=== PATIENT | female | born 1960 | race Caucasian/White ===

== ENCOUNTER 2019-03-17 09:31 | Outpatient (REF) | payer BC, SELFPAY ==
[2019-03-17 13:11] LABS: ALT 30 U/L (14-59); AST 19 U/L (15-37); Albumin 3.7 g/dL (3.4-5.0); Alkaline Phosphatase 48 U/L (46-116); Anion Gap 8.7 mmol/L (3-11); BUN 11 mg/dL (7-18); Bilirubin, Total 0.2 mg/dL (0.2-1.0); CO2 29.3 mmol/L (21.0-32.0); CREATININE 0.78 mg/dL (0.55-1.02); Calcium 9.8 mg/dL (8.5-10.1); Calculated LDL 116 mg/dL; Chloride 107 mmol/L (98-107); Cholesterol 182 mg/dL (50-200); Glucose 89 mg/dL (70-100); HDL Cholesterol 42 mg/dL (40-60); Potassium 3.8 mmol/L (3.5-5.1); Sodium 145 mmol/L (136-145); TSH (W/Ref FT4) 3.89 uIU/mL (0.36-3.74); Total Protein 6.7 g/dL (6.4-8.2); Triglyceride 124 mg/dL (30-150)
== END 2019-03-17 09:51 ==
LOC: NCHCN 09:31
PROVIDERS: PCP Family Medicine; Visit Provider Family Medicine
DX: Z00.00 Encounter for general adult medical examination without abnormal findings (principal); E03.9 Hypothyroidism, unspecified; D50.9 Iron deficiency anemia, unspecified
CPT/HCPCS: 80053; 80061; 84439; 84443

== ENCOUNTER 2019-03-25 15:26 | Emergency (ER) | payer BC, SELFPAY ==
[2019-03-25 15:28] VITALS: BP 149/70; PULSE 83; RESP 18; TEMP 36.6; O2SAT 98
--- NOTE | 2019-03-25 16:36 | ED.GENADUL_ITS ---
Discharge Plan Disposition Patient Disposition: HOME Condition: Stable Discharge Details Chief Complaint: Abd Prob Clinical Impression: Constipation, Acute UTI Primary Care Provider: Berta Winchester ED Provider: Waldemar Jernigan Home Meds and New Rx's Prescriptions: New polyethylene glycol 3350 [Miralax] 17 gram/dose powder 17 gm PO TID Qty: 510 RF: 1 Continued levothyroxine 50 MCG tablet 50 mcg PO DAILY RF: 0 albuterol sulfate 8.5 GM HFA aerosol inhaler 2 puff Inhalation Q6H PRN RF: 0 clonazepam 2 MG tablet,disintegrating 1 mg PO BID RF: 0 sertraline 100 MG tablet 200 mg PO DAILY RF: 0 Discharge Instructions Instructions: Constipation (ED), Urinary Tract Infection in Women (ED) Additional Instructions: Stay well-hydrated and take medication as prescribed. Feel free to return to the emergency department for any new or significant worsening of symptoms. If you are not having signs of improvement of your urinary symptoms or constipation over the next week please follow-up with your primary care provider for reassessment. Referrals: Berta Winchester [Primary Care Provider] - 1 week (If not improving over the next week please follow-up with your primary care provider for reassessment) Discharge Data Discharge Date/Time-TO BE ENTERED AT DEPARTURE: 03/25/19 20:55 Medical Decision Making Patient presenting to the emergency department for chief complaint of constipation. Patient states long ongoing history with slow and difficult bowel movements but she reports not having a bowel movement for approximately 1 week. Patient states mild nausea but denies any vomiting, denies fever chills, does state some slight urinary discomfort with burning urination and bladder pressure. Physical exam shows mild left-sided abdominal tenderness with slight guarding otherwise there is normal active bowel sounds, no CVA tenderness, and otherwise unremarkable exam. Patient with further discussion does state 20 pound weight loss over the last couple months. Given this I do feel that labs and CT imaging is warranted. Pending results patient given Zofran and liter of fluids. Review of labs show unremarkable CBC and CMP, negative lipase, urinalysis with small amount of leukocyte Estrace and 10-20 WBCs with urine culture reflex. Given the patient is symptomatic plan to treat patient with Macrobid. Review of CT imaging shows findings consistent with constipation otherwise no acute abnormalities as noted on exam. Patient reassessed and remained stable with no new or worsening symptoms. Patient placed upon MiraLAX and instructed on use of mag citrate that was provided for her to use at home. At this time we deferred any rectal examination. Patient to continue on Macrobid for 5 days and to othe rwise follow-up with primary care provider for reassessment if not improving or return for new or worsening symptoms. After discussion of diagnosis and plan of care patient has no further needs, questions, or concerns and states clear understanding to return to the emergency department for any worsening symptoms. HPI General Mode of arrival: ambulatory . Date/Time Provider Initiated Documentation: 03/25/19 15:40 . Limitations to Documentation: no limitations . Information obtained by: patient . History of Present Illness 58 year old F presents to the emergency department with the chief complaint of Constipation, described as moderate, with intensity rated at 6. Quality is described as dull, and is localized to the abdomen. Patient started experiencing this month(s) (2) and it has been constant and colicky. No relieving factors improve symptom(s), No exacerbating factors reported . Related Data Home Medications Medication Instructions Recorded Confirmed albuterol sulfate 2 puff INHALATION Q6H PRN inhaler 01/04/15 03/25/19 clonazepam 1 mg PO BID tab-cap 01/04/15 03/25/19 levothyroxine 50 mcg PO DAILY tab-cap 01/04/15 03/25/19 sertraline 200 mg PO DAILY tab-cap 04/05/17 03/25/19 polyethylene glycol 3350 [Miralax] 17 gm PO TID #510 gm 03/25/19 Previous Rx's Medication Instructions Recorded polyethylene glycol 3350 [Miralax] 17 gm PO TID #510 gm 03/25/19 Allergies Allergy/AdvReac Type Severity Reaction Status Date / Time gluten Allergy Intermediate Unverified 03/25/19 15:31 erythromycin base AdvReac Intermediate Nausea Unverified 03/25/19 15:31 iron AdvReac Intermediate Nausea Unverified 03/25/19 15:31 Penicillins AdvReac Intermediate flu Unverified 03/25/19 15:31 symptoms Sulfa (Sulfonamide AdvReac Intermediate chest Unverified 03/25/19 15:31 Antibiotics) feels on fire General Stated Complaint: Abd Prob NELLA: 3 Review of Systems Constitutional Constitutional: Denies chills, Denies fever(s) and Reports poor appetite Cardiovascular Cardiovascular: Denies chest pain and Denies dyspnea Respiratory Respiratory: Denies cough and Denies dyspnea Gastrointestinal Gastrointestinal: Reports as per HPI, Reports abdominal pain, Denies melena, Reports bloating, Denies change in bowel habits, Reports constipation, Reports cramping, Denies diarrhea, Reports nausea and Denies vomiting Genitourinary Genitourinary: Reports dysuria and Denies urinary incontinence Integumentary/Breasts Skin/Breast: Denies rash [facility] Surgical History Colonoscopy - MAC (04/18/17) Tubal Ligation, Family History Mother Breast cancer COPD (chronic obstructive pulmonary disease) Father Valvular heart disease at 77 Bladder cancer Social History Smoking/Tobacco Use Status: Never Drug use: Never Do you feel safe at home: Yes Do you feel safe in your relationship?: Yes Exam Const General: cooperative Orientation: alert, awake and oriented x3 Resp Effort & Inspection: normal respiratory effort and able to speak in complete sentences Auscultation: clear to auscultation bilaterally Cardio Rate: regular rate Rhythm: regular rhythm Heart Sounds: S1 normal and S2 normal GI Palpation: soft, no hepatosplenomegaly, not firm, guarding in the LLQ and in the LUQ, no masses, no pulsatile masses, not rigid, no splenomegaly and tender in the LLQ and in the LUQ; not at McBurney's point and Vela's sign negative Auscultation: hypoactive bowel sounds Back/Spine/Pelvis Back: no CVA tenderness Neuro General: alert, awake, oriented x3, gait normal and moves all extremities Course Vital Signs Vital signs: Vital Signs Temperature 36.6 C 03/25/19 15:28 Pulse 83 03/25/19 15:28 Respiratory Rate 18 03/25/19 15:28 Blood Pressure 149/70 H 03/25/19 15:28 Pulse Oximetry 98 03/25/19 15:28 Temperature 36.6 C 03/25/19 15:28 Temperature Source Skin 03/25/19 15:28 Pulse 83 03/25/19 15:28 Respiratory Rate 18 03/25/19 15:28 Respiratory Effort 03/25/19 15:32 Blood Pressure 149/70 H 03/25/19 15:28 Blood Pressure Position Sitting 03/25/19 15:28 Pulse Oximetry 98 03/25/19 15:28 Oxygen Delivery Method Room Air 03/25/19 15:28 Oxygen Flow Rate 0 03/25/19 15:28 Pain Level 6 03/25/19 16:24
--- NOTE | 2019-03-25 16:36 | DI.CT_ITS ---
EXAM: CT ABDOMEN PELVIS W CLINICAL HISTORY: Abdominal pain, constipation. TECHNIQUE: The examination was carried out according to the usual protocol with intravenous administ ration of 77 cc of Omnipaque 350. COMPARISON: ABD/PELVIS WO W CONTRAST from 08/19/2009 FINDINGS: There are small regions of bibasilar atelectasis. Gallbladder is intact. There are no gallstones or evidence of ductal dilatation. Spleen, pancreas, l iver are normal. Adrenals are normal. Note is made of a 5 mm nodule in the right kidney. No renal ca lculus is seen. There is no evidence of hydronephrosis. A large quantity of fecal material and scat tered gas are identified in the colon, the findings consistent with constipation. There is nothing t o suggest an acute appendix. No evidence of free air or free fluid in the intraperitoneal space. Th ere is no evidence of lymphadenopathy. There is no evidence of an aortic aneurysm. Reproductive org ans appear intact. The bladder is unremarkable. No acute bony abnormality is defined. IMPRESSION: No acute abnormality. There are findings consistent with constipation.
[2019-03-25] MEDS: Ondansetron 4 MG/2 ML VIAL IVP (16:57)
[2019-03-25] MEDS: Normal Saline 1,000 ML 1000 ML IV (17:00)
[2019-03-25 17:20] LABS: Bilirubin Negative (Negative); Blood Negative (Negative); Clarity Clear (Clear); Glucose Negative (Negative); Ketones Negative (Negative); Leukocyte Esterase Small (Negative); Nitrite Negative (Negative); Urobilinogen 0.2 EU/dL (Up TO 0.2); pH 6.5 (5-8)
[2019-03-25 17:25] LABS: Abs Immature Grans 0.01 k/cumm (0.0-0.09); Absolute Basophil Count 0.03 k/cumm (0.0-0.2); Absolute Eosinophil Count 0.14 k/cumm (0.0-0.7); Absolute Lymphocyte Count 2.09 k/cumm (1.2-3.4); Absolute Neutrophil Count 4.04 k/cumm (1.2-6.7); Basophils % 0.4; HCT 40.4 % (36.0-46.0); HGB 13.1 g/dL (12.0-15.5); Immature Grans % 0.1; Lymphocytes % 30.2; Mean Corp. HGB Concentration 32.4 g/dL (32.0-36.0); Mean Corpuscular Hemoglobin 28.5 pg (27.0-33.0); Mean Platelet Volume 9.1 fL (8.0-11.0); Monocytes % 8.7; Neutrophils % 58.6; Platelet Count 289 x1000/uL (130-400); RBC 4.59 m/cumm (4.00-5.20); RBC Distribution Width 13.5 % (11.7-14.6); White Blood Cell Count 6.91 k/cumm (4.4-10.8)
[2019-03-25 17:32] LABS: Bacteria Negative HPF (Negative); C & S Indicated? Yes; Casts 3-5 Fine Granular LPF (Negative); Crystals Moderate Amorphous HPF (Negative); Epithelial Cells Few HPF (Negative); Mucus Moderate (Negative)
[2019-03-25 17:34] LABS: ALT 26 U/L (14-59); AST 20 U/L (15-37); Albumin 3.9 g/dL (3.4-5.0); Alkaline Phosphatase 51 U/L (46-116); Anion Gap 9.1 mmol/L (3-11); BUN 16 mg/dL (7-18); Bilirubin, Total 0.3 mg/dL (0.2-1.0); CO2 26.9 mmol/L (21.0-32.0); Chloride 106 mmol/L (98-107); Glucose 87 mg/dL (70-100); Lipase 244 U/L (73-393); Magnesium 2.1 mg/dL (1.8-2.4); Potassium 3.6 mmol/L (3.5-5.1); Sodium 142 mmol/L (136-145); Total Protein 7.5 g/dL (6.4-8.2)
[2019-03-25 18:51] VITALS: BP 128/72; PULSE 61; RESP 16; O2SAT 98
[2019-03-25] MEDS: Omnipaque 350 MG/ML 100 ML BTL IJ (19:01)
--- NOTE | 2019-03-25 19:31 | DI.VRAD_ITS ---
PROCEDURE INFORMATION: Exam: CT Abdomen And Pelvis With Contrast Exam date and time: 03/25/2019 6:58 PM Clinical history: 58 years old, female; Other: Abdominal pain, constipation; Additional info: Abdominal pain, constipation x2 wks TECHNIQUE: Imaging protocol: Computed tomography of the abdomen and pelvis with intravenous contrast. Radiation optimization: All CT scans at this facility use at least one of these dose optimization techniques: automated exposure control; mA and/or kV adjustment per patient size (includes targeted exams where dose is matched to clinical indication); or iterative reconstruction. Contrast material: OMNIPAQUE 350; Contrast volume: 77 ml; Contrast route: IV; COMPARISON: US PELVIS TRANSVAG 04/24/2017 5:38 PM FINDINGS: Lungs: Bibasilar atelectasis Liver: Normal. No mass. Gallbladder and bile ducts: Normal. No calcified stones. No ductal dilation. Pancreas: Normal. No ductal dilation. Spleen: Normal. No splenomegaly. Adrenals: Normal. No mass. Kidneys and ureters: 5 mm nodule right kidney 37 Hounsfield units No renal calculus. No ureteral calculus Stomach and bowel: Findings consistent with constipation Appendix: No evidence of appendicitis. Intraperitoneal space: Unremarkable. No free air. No significant fluid collection. Vasculature: Unremarkable. No abdominal aortic aneurysm. Lymph nodes: Unremarkable. No enlarged lymph nodes. Bladder: Unremarkable as visualized. Reproductive: Unremarkable as visualized. Bones/joints: Unremarkable. No acute fracture. Soft tissues: Unremarkable. IMPRESSION: Findings consistent with constipation Dictated and Authenticated by: Janeth Carranza MD. Ordering:DEISY Medeiros MD
[2019-03-25] MEDS: MacroBID 100 MG CAP PO (20:53)
[2019-03-25] MEDS: Magnesium Citrate 300 ML BTL 150 ML PO (20:53)
[2019-03-25 20:56] VITALS: BP 144/79; PULSE 76; RESP 16; TEMP 36.7; O2SAT 98
== END 2019-03-25 20:55 | disposition home or self-care (01) ==
PROVIDERS: Emergency Provider Nurse Practitioner Family; PCP Family Medicine
DX: K59.00 Constipation, unspecified (principal); N39.0 Urinary tract infection, site not specified
CPT/HCPCS: 36415; 80053; 83690; 96361; 96374; 99284; 74177; 81003; 81015; 83735; 85025; 87086; J2405; J3490

== ENCOUNTER 2019-04-08 18:07 | Outpatient (REF) | payer BC, SELFPAY | END 2019-04-08 18:27 | LOC: NCHCN 18:07 | PROVIDERS: PCP Family Medicine; Visit Provider Family Medicine | DX: R30.9 Painful micturition, unspecified (principal) | CPT/HCPCS: 87086 ==

== ENCOUNTER 2019-05-31 15:26 | Emergency (ER) | payer BC, SELFPAY ==
[2019-05-31 15:39] VITALS: BP 121/69; PULSE 90; RESP 16; TEMP 37.1; O2SAT 97
[2019-05-31 15:46] LABS: Bilirubin Negative (Negative); Blood Negative (Negative); Clarity Clear (Clear); Glucose Negative (Negative); Ketones Negative (Negative); Leukocyte Esterase Negative (Negative); Nitrite Negative (Negative); Urobilinogen 0.2 EU/dL (Up TO 0.2); pH 6.5 (5-8)
--- NOTE | 2019-05-31 16:12 | ED.GENADUL_ITS ---
Discharge Plan Disposition Patient Disposition: HOME Condition: Good Discharge Details Chief Complaint: FlankPain Clinical Impression: Back pain, Muscle spasm Primary Care Provider: Berta Winchester ED Provider: Nataliia Mcgregor Home Meds and New Rx's Prescriptions: New diazepam [Valium] 5 mg tablet 5 mg PO TID PRN (Reason: muscle spasm) Qty: 7 RF: 0 Continued clonazepam [Klonopin] 1 mg tablet 1 mg PO BID RF: 0 levothyroxine 50 MCG tablet 50 mcg PO DAILY RF: 0 albuterol sulfate 8.5 GM HFA aerosol inhaler 2 puff Inhalation Q6H PRN RF: 0 sertraline 100 MG tablet 100 mg PO DAILY RF: 0 polyethylene glycol 3350 [Miralax] 17 gram/dose powder 17 gm PO TID Qty: 510 RF: 1 citalopram [Celexa] 20 mg Tablet 20 mg PO DAILY RF: 0 Discharge Instructions Instructions: Back Pain (ED), Lower Back Exercises (ED) Additional Instructions: Encourage hydration. You were given Toradol here, you may take ibuprofen again in 8 hours. You may take 600 mg of ibuprofen 4 times daily as well as 1000 mg of Tylenol 4 times daily. Valium prescribed to help with muscle spasm. This may make you fatigued. Do not drive will take this medication and take only as prescribed. Encouraged gentle stretching and frequent ambulation. Heat may also help with discomfort. May try topical options such as Salonpas or Lidoderm patches. Physical therapy referral is attached. He may also contact massage therapy. If you develop fever/chills, increased pain, weakness, radiating pain or other new/worsening symptoms please seek care urgently once again. Otherwise, please follow-up with primary care next week for reevaluation. Stand Alone Forms: Physical Therapy Referral Referrals: Berta Winchester [Primary Care Provider] - Discharge Data Discharge Date/Time-TO BE ENTERED AT DEPARTURE: 05/31/19 16:40 Medical Decision Making Patient 58-year-old female presents today with chief complaint of lower back pain. She reports began yesterday after [employer] shopping. She does report that she was lifting up more than she typically does and this may have been related to offset the back discomfort. States the pain has further progressed, particularly worsened overnight. States the pain is maximal with bending forward. Feels improved with immobilization. Denies any weakness in her lower extremities. No change in bowel or bladder habits. Denies any numbness or tingling. Pain does not radiate. Denies any GI upset. Patient does have chronic constipation but no change in this. States she did take ibuprofen this morning but is not take anything since then. Has had kidney stones historically but states that this pain is slightly different and is equal bilaterally. On exam, patient appears comfortable. Vital signs within normal limits. Abdomen is benign. Lung sounds are clear. No CVA tenderness. Pain is much more inferior to this along the lumbar aspect of the spine. No midline tenderness, no paraspinal tenderness. Pain is maximal with forward flexion. With this, spasm is noted more so on the left than the right although patient feels that pain is equal bilaterally. Negative straight leg raise. Rotational movements are intact. No sensory deficit, no saddle paresthesias. Strength equal bilaterally lower extremities, normal reflexes. Urinalysis without significant abnormality. I discussed with the patient that her history of heavy lifting yesterday followed by a gradual onset of lower back pain is more suggestive of muscle spasm. Spasm was palpable on exam. I discussed treatment options with the patient. She prefers to be discharged home and take muscle relaxer at that time. She is agreeable to Toradol, Tylenol and lidocaine patch but would like to be able to drive herself home. She is given strict return precautions. Encourage gentle stretching frequent ambulation. She has seen massage therapy in the past which is worked well for her. Referral to physical therapy will also be given. Patient requesting discharge at this time. Advise follow-up with primary care next week for reevaluation. All her questions and concerns were addressed and she is agreement this plan. [facility] General Mode of arrival: ambulatory . Date/Time Provider Initiated Documentation: 05/31/19 15:32 . Limitations to Documentation: no limitations . Information obtained by: patient and RN notes reviewed . History of Present Illness 58 year old F presents to the emergency department with the chief complaint of bilateral lower back pain, described as moderate, with intensity rated at 7. Quality is described as aching, and is localized to the back. Patient reports no radiation. Patient started experiencing this day(s) (1) and it has been constant. Immobilization improves symptom(s), Movement worsens symptoms . Patient notes no other symptoms.; denies chest pain, cough, diaphoresis, fever/chills, headaches, malaise, nausea/vomiting, rash, shortness of breath and weakness. Patient did receive the following treatments prior to arrival, none Related Data Home Medications Medication Instructions Recorded Confirmed albuterol sulfate 2 puff INHALATION Q6H PRN inhaler 01/04/15 05/31/19 levothyroxine 50 mcg PO DAILY tab-cap 01/04/15 05/31/19 sertraline 100 mg PO DAILY tab-cap 04/05/17 05/31/19 polyethylene glycol 3350 [Miralax] 17 gm PO TID #510 gm 03/25/19 05/13/19 clonazepam 1 mg tablet 1 mg PO BID 05/13/19 05/31/19 citalopram [Celexa] 20 mg PO DAILY 05/31/19 05/31/19 diazepam [Valium] 5 mg PO TID PRN #7 tab 05/31/19 Previous Rx's Medication Instructions Recorded polyethylene glycol 3350 [Miralax] 17 gm PO TID #510 gm 03/25/19 diazepam [Valium] 5 mg PO TID PRN #7 tab 05/31/19 Allergies Allergy/AdvReac Type Severity Reaction Status Date / Time gluten Allergy Intermediate Unverified 05/31/19 15:46 erythromycin base AdvReac Intermediate Nausea Unverified 05/31/19 15:46 iron AdvReac Intermediate Nausea Unverified 05/31/19 15:46 Penicillins AdvReac Intermediate flu Unverified 05/31/19 15:46 symptoms Sulfa (Sulfonamide AdvReac Intermediate chest Unverified 05/31/19 15:46 Antibiotics) feels on fire General Stated Complaint: FlankPain NELLA: 3 Review of Systems Constitutional Constitutional: Reports as per HPI, Denies chills, Denies fatigue, Denies fever(s), Denies frequent falls and Denies headache(s) Eyes Eyes: Denies change in vision ENT Ears, Nose, Mouth, and Throat: Denies headache(s) Cardiovascular Cardiovascular: Denies chest pain, Denies dyspnea and Denies dyspnea on exertion Respiratory Respiratory: Denies cough, Denies dyspnea and Denies dyspnea on exertion Gastrointestinal Gastrointestinal: Denies abdominal pain, Denies change in bowel habits and Denie s fecal incontinence Genitourinary Genitourinary: Reports as per HPI, Denies urinary incontinence and Denies urinary hesitancy Musculoskeletal Musculoskeletal: Reports as per HPI, Reports back pain, Denies muscle weakness, Denies numbness, Denies radiating pain into limb, Reports stiffness and Denies tingling Integumentary/Breasts Skin/Breast: Reports as per HPI and Denies rash Neurologic Neurologic: Reports as per HPI, Denies frequent falls, Denies headache(s), Denies focal weakness, Denies numbness, Denies radicular pain, Denies sensory deficit, Denies tingling and Denies paresthesias Endocrine Endocrine: Denies fatigue [facility] Medical History Abdominal pain (Acute) Abnormal uterine bleeding (Acute) Anemia, iron deficiency (Acute) Anxiety (Chronic) Chronic constipation (Acute) Dizziness (Acute) Grief reaction (Acute) Hair loss (Acute) Headache (Acute) Hypothyroidism (Chronic) Left elbow pain (Acute) Pain, joint, shoulder, right (Acute) Paresthesias (Acute) Rotator cuff syndrome (Acute) Seizure disorder (Chronic) Syncope (Chronic) Vertigo (Acute) Surgical History Colonoscopy - MAC (04/18/17) Tubal Ligation, Social History Smoking/Tobacco Use Status: Never Alcohol Intake: current Alcohol Intake frequency: holidays/special occasions only Drug use: Never Do you feel safe at home: Yes Do you feel safe in your relationship?: Yes Exam Const General: cooperative, healthy appearing, comfortable, no acute distress, well developed and well groomed Nutritional Appearance: average body habitus and well nourished Orientation: alert and awake Eyes General: appearance normal, both eyes and all related structures Neck Neck: normal visual inspection, full ROM, no lymphadenopathy and no meningeal signs Resp Effort & Inspection: normal respiratory effort and able to speak in complete sentences Auscultation: clear to auscultation bilaterally, no rales, no rhonchi and no wheezes Cardio Rate: regular rate Rhythm: regular rhythm Heart Sounds: S1 normal and S2 normal GI Inspection: normal to inspection, no edema and non-distended Palpation: soft, no hepatosplenomegaly, not firm, no guarding, no hernias, not rigid and nontender Percussion: normal to percussion Auscultation: normal bowel sounds Back/Spine/Pelvis Back: no CVA tenderness Cervical Spine: normal cervical lordosis, cervical ROM normal, No cervical muscular tenderness, No pain with cervical ROM and No step off deformity Thoracic/Lumbar Spine: No thoracic and lumbar spine normal to inspection (spasm noted lumbar spine, particularly over the left side), No thoraco-lumbar ROM normal (full rotational movements, pain limits forward flexion), straight leg raise negative bilaterally, No kyphosis, No mass, No paraspinal tenderness, thoraco-lumbar spasm, No thoracic spinal tenderness, No lumbar spinal tenderness and No straight leg raise positive Pelvis: no pain with anterior-posterior compression and no pain with lateral compression Skin General skin exam: no rashes or lesions noted Neuro General: alert and awake Cognition: normal cognition Speech: speech normal Gait: normal gait Motor: muscle tone normal throughout, strength 5/5 throughout, no movement abnormalities noted and no fasciculations Sensory Exam: no sensory deficits noted (no saddle paresthesias) DTR's: Rt Patellar: 2+, Lt Patellar: 2+, Rt Ankle: 2+ and Lt Ankle: 2+ Extrem General: normal to inspection, full ROM, normal capillary refill, no joint enlargement, no pedal edema, no calf tenderness and normal gait Psych Appearance: grossly normal and well kempt Mental Status: mental status grossly normal Speech and Movement: speech and movement normal Course Vital Signs Vital signs: Vital Signs Temperature 37.1 C 05/31/19 15:39 Pulse 90 05/31/19 15:39 Respiratory Rate 16 05/31/19 15:39 Blood Pressure 121/69 05/31/19 15:39 Pulse Oximetry 97 05/31/19 15:39 Temperature 37.1 C 05/31/19 15:39 Temperature Source Temporal Artery Scan 05/31/19 15:39 Pulse 90 05/31/19 15:39 Respiratory Rate 16 05/31/19 15:39 Respiratory Effort 05/31/19 15:46 Blood Pressure 121/69 05/31/19 15:39 Blood Pressure Position Standing 05/31/19 15:39 Pulse Oximetry 97 05/31/19 15:39 Oxygen Delivery Method Room Air 05/31/19 15:39 Oxygen Flow Rate 0 05/31/19 15:39 Pain Level 8 05/31/19 15:39 Lab/Test Results Lab/Test Results: Laboratory Tests Range/Units 05/31/19 15:36 Urine Color (Yellow) Yellow Urine Clarity (Clear) Clear Urine pH (5-8) 6.5 Ur Specific [place] (1.005-1.025) 1.020 Urine Protein (Negative) mg/dL Negative Urine Ketones (Negative) mg/dL Negative Urine Blood (Negative) Negative Urine Nitrite (Negative) Negative Urine Bilirubin (Negative) Negative Urine Urobilinogen (Up TO 0.2) EU/dL 0.2 Ur Leukocyte Esterase (Negative) Negative Urine Glucose (Negative) mg/dL Negative POC- Test(urine) Negative
[2019-05-31] MEDS: Acetaminophen 500 MG TAB 1000 MG PO (16:27)
[2019-05-31] MEDS: Lidocaine 5% Patch 1 PATCH TP (16:28)
[2019-05-31] MEDS: Ketorolac 30 MG/ML VIAL IVP (16:28)
[2019-05-31] MEDS: diazePAM 5 MG TAB PO (16:28)
== END 2019-05-31 16:40 | disposition home or self-care (01) ==
PROVIDERS: Emergency Provider Physician Assistant; PCP Family Medicine
DX: M54.5 Low back pain (principal); M62.830 Muscle spasm of back
CPT/HCPCS: 81025; 96374; 99284; 81003; 99283; J1885

== ENCOUNTER 2019-11-19 09:13 | Outpatient (CLI) | payer BC, SELFPAY ==
[2019-11-21 12:52] LABS: COVID-19 RT-PCR Result NEGATIVE (Negative)
== END 2019-11-19 09:33 ==
PROVIDERS: PCP Family Medicine; Visit Provider Family Medicine
DX: Z11.59 Encounter for screening for other viral diseases (principal)
CPT/HCPCS: U0003

== ENCOUNTER 2020-02-06 03:55 | Outpatient (CLI) | payer BC, SELFPAY ==
--- NOTE | 2020-02-06 07:30 | DI.US_ITS ---
EXAM: US RENAL CLINICAL HISTORY: ? solid vs cystic nodule,nodule of kidney. TECHNIQUE: Hansen scale, color and spectral Doppler were used. COMPARISON: CT CT ABDOMEN PELVIS W from 03/25/2019 FINDINGS: Renal size in cm: Right: 9.1 left: 9.8 Echogenicity: Normal Hydronephrosis: No Cyst or mass: 6 by 7 x 9 millimeters simple cyst at the lower pole of the right kidney. Nephrolithiasis: There is a 6 millimeter echogenic focus in the mid right kidney without shadowing. This likely represents an artifact. No calcification was seen on the previous CT. Other findings: None Bladder:Normal. Both ureteral jets were visualized. Prevoid vol:253 Postvoid vol:18 IMPRESSION: 9 millimeter cyst at the lower pole of the right kidney. Probable artifact versus stone in the mid right kidney. DATA REPOSITORY:
== END 2020-02-06 04:15 ==
PROVIDERS: PCP Family Medicine; Visit Provider Nurse Practitioner Gerontology
DX: N28.1 Cyst of kidney, acquired (principal)
CPT/HCPCS: 76770

== ENCOUNTER 2020-02-18 09:41 | Outpatient (CLI) | payer BC, SELFPAY ==
--- NOTE | 2020-02-18 09:50 | DI.RAD_ITS ---
EXAM: XR SHOULDER RT COMPLETE 2+V CLINICAL HISTORY: right shoulde. TECHNIQUE: 2D digital imaging was performed. COMPARISON: CR CHEST 2 VIEWS PA,LAT from 07/02/2015 FINDINGS: BONES: No acute fracture is present. No bony destructive lesion is seen. JOINTS: No dislocation present. Mild degenerative changes are seen at the acromioclavicular joint. T he glenohumeral joint is well maintained. SOFT TISSUE: Normal. IMPRESSION: Mild degenerative changes of the right AC joint. DATA REPOSITORY: RADIATION DOSE DELIVERED:
== END 2020-02-18 10:01 ==
PROVIDERS: PCP Family Medicine; Referring Provider Family Medicine; Visit Provider Student in an Organized Health Care Education/Training Program
DX: M19.011 Primary osteoarthritis, right shoulder (principal)
CPT/HCPCS: 73030

== ENCOUNTER 2020-04-26 00:37 | Outpatient (CLI) | payer BC, SELFPAY ==
--- NOTE | 2020-04-26 13:50 | DI.MAMMO_ITS ---
EXAM: MG MAMMO SCREENING CLINICAL HISTORY: SCREENING,Z12.31 TECHNIQUE: Mammograms were interpreted according to the usual protocol including computer analysis w [employer] CAD system, tomosynthesis and C-view imaging. COMPARISON: FINDINGS: The breasts are heterogeneously dense. No dominant mass or clumped microcalcification is identified in either breast. The current examination is compared with previous examinations including November 2017 and there has been no gross interval change in appearance in comparison with the prior studies. IMPRESSION: No specific evidence of malignancy at this time. Routine screening examinations are suggested at yea rly intervals due to the family history of breast carcinoma. BI-RADS Category 1 - Negative Breast Density - Category C - Heterogeneously dense
== END 2020-04-26 00:57 ==
PROVIDERS: PCP Family Medicine; Visit Provider Family Medicine
DX: Z12.31 Encounter for screening mammogram for malignant neoplasm of breast (principal); Z80.3 Family history of malignant neoplasm of breast
CPT/HCPCS: 77063; 77067

== ENCOUNTER 2020-05-08 12:15 | Emergency (ER) | payer BC, SELFPAY ==
[2020-05-08] VITALS (9 sets, daily range): BP systolic 154; BP diastolic 68; PULSE 71–84; RESP 12–23; TEMP 36.6; O2SAT 94–99
--- NOTE | 2020-05-08 12:15 | RT.EKG_ITS ---
APPROVED REPORT Exam: Resting ECG Patient Location: E HR:75 bpm ECG Measurements Heart Rate 75 AXIS DC 137 P 29 QRSd 87 QRS 49 QT 419 T 25 QTc 470 Conclusion Sinus rhythm. Nonspecific st changes
--- NOTE | 2020-05-08 12:30 | DI.RAD_ITS ---
EXAM: XR PORTABLE CHEST AP CLINICAL HISTORY: fever, chills TECHNIQUE: 2D digital imaging was performed. COMPARISON: CR LEFT SHOULDER COMPLETE from 08/20/2017 FINDINGS: LUNGS: Clear. No pleural abnormality seen. HEART: Normal. MEDIASTINUM: Normal. OTHER FINDINGS: None. IMPRESSION: Negative portable chest DATA REPOSITORY: RADIATION DOSE DELIVERED:
--- NOTE | 2020-05-08 12:42 | W.ED.GENAD ---
Discharge Plan Disposition Patient Disposition: HOME Condition: Improving Discharge Details Clinical Impression: Acute viral syndrome Primary Care Provider: Berta Winchester ED Provider: Jerrod Escoto Home Meds and New Rx's Prescriptions: Continued clonazepam [Klonopin] 1 mg tablet 1 mg PO BID RF: 0 estradiol 0.01 % (0.1 mg/gram) cream 1 g VG DIRECTED Qty: 60 RF: 3 levothyroxine 50 MCG tablet 50 mcg PO DAILY RF: 0 albuterol sulfate 8.5 GM HFA aerosol inhaler 2 puff Inhalation Q6H PRN RF: 0 citalopram [Celexa] 20 mg tablet 40 mg PO DAILY RF: 0 polyethylene glycol 3350 [Miralax] 17 gram/dose powder 17 gm PO TID Qty: 510 RF: 1 Discharge Instructions Instructions: Viral Syndrome (ED) Additional Instructions: Home to rest today. Small, frequent fluids that you maintain good hydration. Continue your regular medications. Tylenol 650 to 975 mg every 4-6 hours as needed for aches, pains, fever. Return if you develop difficulty breathing or any other acute concerns. Stand Alone Forms: PENDING COVID-19 TESTING Discharge Data Discharge Date/Time-TO BE ENTERED AT DEPARTURE: 05/08/20 14:20 Medical Decision Making 59-year-old female presents with approximately a week of generalized illness that started with a sore throat, progressed to chills, subjective fever, body ache, backache, burning and concentrated urine. She feels weak. She feels that food does not taste normal. She has a poor appetite. She arrives afebrile, pulse 80, blood pressure 154/68. Her exam is essentially nonfocal. Appears most consistent with generalized viral illness, including possible hollis virus. Patient states she has had her flu shot. IV access established, fluids initiated, patient referred for rapid strep test, COVID-19 test, chest x-ray, blood work and urinalysis. Labs reveal a white count of 7, hematocrit 42, platelets 359. Lactic acid 1.2. Chemistries within normal limits. BUN 9, creatinine 0.9, LFTs unremarkable. Urinalysis: Specific gravity 1.02, negative ketones, negative nitrites. Neg strep test. Chest x-ray no acute findings. Discussed with patient that her COVID-19 test will be pending. She will continue to self isolate appropriately. She is instructed as to home care as well as indications to seek reevaluation. HPI General Mode of arrival: ambulatory. Date/Time Provider Initiated Documentation: 05/08/20 12:17. Limitations to Documentation: no limitations. Information obtained by: patient. History of Present Illness 59 year old F presents to the emergency department with the chief complaint of Fever and chills, sore throat, body ache, malaise, described as moderate, Quality is described as constant, and is localized to the chest, back, upper extremity and lower extremity. Patient reports no radiation. Patient started experiencing this day(s) and it has been constant. No relieving factors improve symptom(s), No exacerbating factors reported . Patient notes cough (Minimal to no cough. Sore throat, body ache, backache, burning of urination.), fever/chills, headaches, loss of appetite, malaise, weakness and other (Loose stool, bowel cramps); denies syncope. Related Data Home Medications Medication Instructions Recorded Confirmed albuterol sulfate 2 puff INHALATION Q6H PRN inhaler 01/04/15 05/08/20 levothyroxine 50 mcg PO DAILY tab-cap 01/04/15 05/08/20 polyethylene glycol 3350 [Miralax] 17 gm PO TID #510 gm 03/25/19 05/08/20 clonazepam 1 mg tablet 1 mg PO BID 05/13/19 05/08/20 citalopram 20 mg tablet 40 mg PO DAILY tab 02/03/20 05/08/20 estradiol 1 g VG DIRECTED #60 gm 02/11/20 05/08/20 Previous Rx's Medication Instructions Recorded polyethylene glycol 3350 [Miralax] 17 gm PO TID #510 gm 03/25/19 estradiol 1 g VG DIRECTED #60 gm 02/11/20 Allergies Allergy/AdvReac Type Severity Reaction Status Date / Time gluten Allergy Intermediate Verified 05/08/20 12:24 erythromycin base AdvReac Intermediate Nausea Verified 05/08/20 12:24 iron AdvReac Intermediate Nausea Verified 05/08/20 12:24 Penicillins AdvReac Intermediate flu Verified 05/08/20 12:24 symptoms Sulfa (Sulfonamide AdvReac Intermediate chest Verified 05/08/20 12:24 Antibiotics) feels on fire General Stated Complaint: GenMedical NELLA: 3 Review of Systems Narrative: See HPI. 8 systems reviewed and otherwise negative. No known sick contacts and denies recent travel. [facility] Medical History Abdominal pain Abnormal uterine bleeding Adhesive capsulitis of right shoulder Anemia, iron deficiency Anxiety Chronic constipation Dizziness Grief reaction Hair loss Headache Hypothyroidism Left elbow pain Pain, joint, shoulder, right Paresthesias Rotator cuff syndrome Seizure disorder Superior labrum zaqbmndl-gd-lzpelxfke (SLAP) tear of right shoulder Syncope Tendinopathy of right biceps tendon Vertigo Surgical History Colonoscopy - MAC (04/18/17) Tubal Ligation, Family History Mother Breast cancer COPD (chronic obstructive pulmonary disease) Father Valvular heart disease at 77 Bladder cancer Social History Smoking/Tobacco Use Status: Never Smoking risk assessment performed?: Yes Alcohol Intake: current Alcohol Intake frequency: holidays/special occasions only Drug use: Never Substance use type: does not use Do you feel safe at home: Yes Do you feel safe in your relationship?: Yes Exam Narrative Exam Narrative: GEN: awake, alert, oriented 3. Pleasant, well groomed, interactive. HEAD: Normocephalic, atraumatic ENT: Mucous membranes moist, oropharynx unremarkable, External ear exam unremarkable EYES: PERRL, EOMI NECK: Full ROM, no TORITO, no menigismus CHEST/RESP: Nontender, clear to auscultation bilateral, no wheeze/rhonchi/rales CARDIOVASCULAR: RRR, no murmur, rub mary. 2+ Rad pulse bilateral ABDOMEN: Soft, nontender, no mass. +Bowel sounds EXT: Full ROM, no edema, no rash Neuro: Grossly normal neurologic exam, conversant, interactive. Psych: Speech fluent, thoughts congruent, affect normal Course Vital Signs Vital signs: Vital Signs Temperature 36.6 C 05/08/20 12:19 Pulse 80 05/08/20 12:19 Respiratory Rate 18 05/08/20 12:19 Blood Pressure 154/68 H 05/08/20 12:19 Pulse Oximetry 98 05/08/20 12:19 Temperature 36.6 C 11/21/20 12:19 Temperature Source Temporal Artery Scan 05/08/20 12:19 Pulse 80 05/08/20 12:19 Respiratory Rate 15 05/08/20 12:34 Respiratory Effort Non-Labored 05/08/20 12:34 Respiratory Depth Normal 05/08/20 12:34 Respiratory Pattern Normal 05/08/20 12:34 Blood Pressure 154/68 H 05/08/20 12:19 Blood Pressure Position Sitting 05/08/20 12:19 Pulse Oximetry 98 05/08/20 12:19 Oxygen Delivery Method Room Air 05/08/20 12:19 Oxygen Flow Rate 0 05/08/20 12:19 Pain Level 0 05/08/20 12:19
[2020-05-08 12:53] LABS: Abs Immature Grans 0.02 10^3/uL (0.0-0.06); Absolute Basophil Count 0.05 10^3/uL (0.0-0.2); Absolute Eosinophil Count 0.07 10^3/uL (0.0-0.7); Absolute Lymphocyte Count 2.76 10^3/uL (1.2-3.4); Absolute Monocyte Count 0.49 10^3/uL (0.1-0.8); Absolute Neutrophil Count 3.94 10^3/uL (1.2-6.7); Basophils % 0.7; HCT 42.8 % (36.0-46.0); HGB 13.9 g/dL (11.2-15.7); Immature Grans % 0.3; Lactate 1.2 mmol/L (0.6-1.4); Lymphocytes % 37.7; MCH 29.4 pg (27.0-33.0); MCHC 32.5 % (32.0-36.0); MCV 90.5 fL (80-95); MPV 8.7 fL (8.0-11.0); Monocytes % 6.7; Neutrophils % 53.6; Nucleated RBC 0 %; Platelet Count 359 10^3/uL (130-400); RBC 4.73 10^6/uL (3.93-5.22); RDW 12.2 % (11.7-14.6); RDW-SD 40.1 fL; WBC 7.33 10^3/uL (4.4-10.8)
[2020-05-08] MEDS: Normal Saline 500 ML 1000 ML IV (13:01)
[2020-05-08] MEDS: Ketorolac 15 MG/ML VIAL IVP (13:01)
[2020-05-08] MEDS: Normal Saline Flush 10 ML SYR IVP (13:02)
[2020-05-08 13:06] LABS: Magnesium 1.9 mg/dL (1.8-2.4)
[2020-05-08 13:10] LABS: ALT 37 U/L (14-59); AST 23 U/L (15-37); Alkaline Phosphatase 41 U/L (46-116); Anion Gap 7.2 mmol/L (3-11); BUN 9 mg/dL (7-18); Bilirubin, Total 0.4 mg/dL (0.2-1.0); CO2 27.8 mmol/L (21.0-32.0); CREATININE 0.93 mg/dL (0.55-1.02); Calcium 10.2 mg/dL (8.5-10.1); Chloride 105 mmol/L (98-107); Glucose 84 mg/dL (74-106); Potassium 3.6 mmol/L (3.5-5.1); Sodium 140 mmol/L (136-145); Total Protein 7.5 g/dL (6.4-8.2)
[2020-05-08 13:52] LABS: Bilirubin Negative (Negative); Blood Negative (Negative); Clarity Clear (Clear); Glucose Negative (Negative); Ketones Negative (Negative); Leukocyte Esterase Negative (Negative); Nitrite Negative (Negative); Urobilinogen 0.2 EU/dL (Up TO 0.2)
--- NOTE | 2020-05-08 13:55 | DI.VRAD_ITS ---
PROCEDURE INFORMATION: Exam: XR Chest, 1 View Exam date and time: 05/08/2020 1:44 PM Age: 59 years old Clinical indication: Other: Fever, chills TECHNIQUE: Imaging protocol: XR of the chest Views: 1 view. COMPARISON: CR CHEST 2 VIEWS PA,LAT 07/02/2015 9:18 AM FINDINGS: Lungs: Unremarkable. No consolidation. Pleural space: Unremarkable. No pleural effusion. No pneumothorax. Heart/Mediastinum: Unremarkable. No cardiomegaly. Bones/joints: Unremarkable. IMPRESSION: No acute findings. Dictated and Authenticated by: Eulalio Jeff MD. Ordering:LIZETTE Elder MD
[2020-05-12 03:43] LABS: Patient Race White; SARS-CoV-2 RNA Undetected (Undetected); SARS-CoV-2 Specimen Source Nasopharynx
--- NOTE | 2020-05-12 19:03 | NUR.NOTE ---
05/12/20 @ 1903 - after verifying patient's identity, relayed negative covid test results.
== END 2020-05-08 14:20 | disposition home or self-care (01) ==
PROVIDERS: Emergency Provider Emergency Medicine; PCP Family Medicine
DX: J02.8 Acute pharyngitis due to other specified organisms (principal); R50.9 Fever, unspecified; M79.10 Myalgia, unspecified site; B34.9 Viral infection, unspecified; Z11.59 Encounter for screening for other viral diseases
CPT/HCPCS: 36415; 80053; 87880; 93005; 96374; 99285; U0003; 71045; 81003; 83605; 83735; 85025; 93010; J1885

== ENCOUNTER 2020-06-08 20:56 | Outpatient (REF) | payer BC, SELFPAY ==
[2020-06-08 21:27] LABS: TSH 1.71 uIU/mL (0.36-3.74)
== END 2020-06-08 21:16 ==
LOC: NCHCN 20:56
PROVIDERS: PCP Family Medicine; Visit Provider Internal Medicine
DX: E03.9 Hypothyroidism, unspecified (principal)
CPT/HCPCS: 84439; 84443

== ENCOUNTER 2020-07-08 20:57 | Outpatient (REF) | payer BC, SELFPAY ==
[2020-07-08 21:27] LABS: Abs Immature Grans 0.01 10^3/uL (0.0-0.06); Absolute Basophil Count 0.03 10^3/uL (0.0-0.2); Absolute Eosinophil Count 0.08 10^3/uL (0.0-0.7); Absolute Lymphocyte Count 2.65 10^3/uL (1.2-3.4); Absolute Monocyte Count 0.51 10^3/uL (0.1-0.8); Absolute Neutrophil Count 3.75 10^3/uL (1.2-6.7); Basophils % 0.4; Eosinophils % 1.1; HCT 43.6 % (36.0-46.0); HGB 14.3 g/dL (11.2-15.7); Immature Grans % 0.1; Lymphocytes % 37.7; MCH 29.2 pg (27.0-33.0); MCHC 32.8 % (32.0-36.0); MCV 89.2 fL (80-95); MPV 9.1 fL (8.0-11.0); Monocytes % 7.3; Neutrophils % 53.4; Nucleated RBC 0 %; Platelet Count 389 10^3/uL (130-400); RBC 4.89 10^6/uL (3.93-5.22); RDW 12.3 % (11.7-14.6); RDW-SD 40.2 fL; WBC 7.03 10^3/uL (4.4-10.8)
[2020-07-08 22:01] LABS: Anion Gap 6.5 mmol/L (3-11); BUN 12 mg/dL (7-18); C-Reactive Protein 0.09 mg/dL (0.0-0.3); CO2 29.5 mmol/L (21.0-32.0); CREATININE 0.85 mg/dL (0.55-1.02); Calcium 10.3 mg/dL (8.5-10.1); Chloride 105 mmol/L (98-107); Glucose 81 mg/dL (74-106); Potassium 4.3 mmol/L (3.5-5.1); Sodium 141 mmol/L (136-145); Vitamin B12 607 pg/mL (193-986)
[2020-07-08 22:21] LABS: ESR 15 mm/hr (0-30)
[2020-07-12 11:53] LABS: Parathyroid Hormone,Intact 94 pg/mL (19-88)
[2020-07-12 14:39] LABS: ANA Interpretation Positive (Negative); ANA Titer Pattern 1:160 Homogeneous
== END 2020-07-08 21:17 ==
LOC: NCHCN 20:57
PROVIDERS: PCP Family Medicine; Visit Provider Internal Medicine
DX: G44.209 Tension-type headache, unspecified, not intractable (principal); R53.83 Other fatigue; G50.1 Atypical facial pain
CPT/HCPCS: 80048; 85652; 82607; 83970; 85025; 86038; 86140

== ENCOUNTER 2020-07-14 01:45 | Outpatient (CLI) | payer BC, SELFPAY ==
--- NOTE | 2020-07-14 12:40 | DI.CT_ITS ---
EXAM: CT HEAD WO CLINICAL HISTORY: TENSION HEADACHE G44.209. TECHNIQUE: Imaging Protocol: Axial computed tomography images with coronal and sagittal reformatted images were created and reviewed COMPARISON: CT HEAD WITHOUT CONTRAST from 05/09/2017 FINDINGS: Ventricles and Extra axial spaces: Normal in size and morphology for the patient's age. Hemorrhage: None. Cerebral parenchyma: Normal. Midline shift: None. Brainstem/Cerebellum: Normal. Calvarium: Normal. Visualized Paranasal sinuses/Mastoids: Clear. Soft Tissues: Unremarkable. IMPRESSION: Negative head CT. RADIATION DOSE DELIVERED: 771.36mGy.cm Total DLP DATA REPOSITORY: All CT scans at this facility are submitted to the National Radiology Data Registry (NRDR) Dose Index Registry (DIR) with the [employer] (ACR). RADIATION OPTIMIZATION: All CT scans at this facility use at least one of these dose optimization te chniques: automated exposure control; mA and/or kV adjustment per patient size (includes targeted exa ms where dose is matched to clinical indication); or iterative reconstruction.
== END 2020-07-14 02:05 ==
PROVIDERS: PCP Family Medicine; Visit Provider Internal Medicine
DX: G44.209 Tension-type headache, unspecified, not intractable (principal)
CPT/HCPCS: 70450

== ENCOUNTER 2021-05-18 11:19 | Outpatient (REF) | payer BC, SELFPAY ==
--- NOTE | 2021-05-18 10:30 | PAPFT_PTH ---
PATIENT: Katia Larsen LOC: [facility]#:[id number] AGE/SX: 60/F ROOM: RE05/18/[address]: Berta Winchester : 1960 BED: DIS: 05/18/2021 SPEC #: [id number] RECD: 05/19/21 12:37 STATUS: DIANE REGisell #: [id number] PARISH: 05/18/21 10:[address]: Berta Winchester DEPT: [facility] Cytology RECD BY: Lizbeth Cross Tissues: 1 - CX/ENDOCX FOR PAP SMEARS Procedures: PAP THIN PREP/UVM Screening HPV DNA PROBE Comments: [id number]
== END 2021-05-18 11:20 | disposition home or self-care (01) ==
LOC: NCHCN 11:19
PROVIDERS: PCP Family Medicine; Visit Provider Family Medicine
DX: Z12.4 Encounter for screening for malignant neoplasm of cervix (principal); Z11.51 Encounter for screening for human papillomavirus (HPV)
CPT/HCPCS: 88142; 87624

== ENCOUNTER 2021-06-14 02:00 | Outpatient (CLI) | payer BC, SELFPAY ==
--- NOTE | 2021-06-14 15:00 | DI.MAMMO_ITS ---
Exam(s) MAMMO SCREENING EXAM: MAMMO SCREENING CLINICAL HISTORY: SCREENING, Z12.31 TECHNIQUE: Mammograms were interpreted according to the usual protocol including computer analysis w [employer] CAD system, tomosynthesis and C-view imaging. COMPARISON: FINDINGS: The breasts are heterogeneously dense. No dominant mass or clumped microcalcification is identified in either breast. The current examination is compared with previous examinations including April 2020 and there has been no gross interval change in appearance in comparison with the prior studies. IMPRESSION: No specific evidence of malignancy at this time. Routine screening examinations are suggested at yea rly intervals due to the family history of breast carcinoma. BI-RADS Category 1 - Negative Breast Density - Category C - Heterogeneously dense
== END 2021-06-14 02:20 ==
PROVIDERS: PCP Family Medicine; Visit Provider Family Medicine
DX: Z12.31 Encounter for screening mammogram for malignant neoplasm of breast (principal); Z80.3 Family history of malignant neoplasm of breast
CPT/HCPCS: 77063; 77067

== ENCOUNTER 2021-10-10 18:26 | Outpatient (REF) | payer BC, SELFPAY ==
[2021-10-12 11:50] LABS: COVID-19 RT-PCR UVMMC Result Negative (Negative)
== END 2021-10-10 18:27 | disposition home or self-care (01) ==
LOC: NCHCN 18:26
PROVIDERS: PCP Family Medicine; Visit Provider Family Medicine
DX: Z20.822 Contact with and (suspected) exposure to COVID-19 (principal); R05.8 Other specified cough
CPT/HCPCS: U0003

== ENCOUNTER 2021-10-11 16:17 | Outpatient (CLI) | payer BC, SELFPAY ==
--- NOTE | 2021-10-11 | DI.RAD_ITS ---
Exam(s) XR CHEST 2V PA LATERAL EXAM: XR CHEST 2V PA LATERAL CLINICAL HISTORY: PNEUMONIA J18.9 TECHNIQUE: 2D digital imaging was performed of the chest. Two images were obtained. PA and lateral views were obtained. COMPARISON: CR,XR XR PORTABLE CHEST AP from 05/08/2020 FINDINGS: MEDIASTINUM: Normal. HEART: Normal. PULMONARY VASCULATURE: Normal. LUNGS: There is an infiltrate in the left lower lobe suspicious for pneumonia. PLEURAL SPACE: No pleural effusion or pneumothorax. BONE:Within normal limits for the patient's age. OTHER FINDINGS:Normal. IMPRESSION: Left lower lobe pneumonia. DATA REPOSITORY: RADIATION DOSE DELIVERED:
== END 2021-10-11 16:37 ==
PROVIDERS: PCP Family Medicine; Visit Provider Family Medicine
DX: R91.8 Other nonspecific abnormal finding of lung field (principal); J18.1 Lobar pneumonia, unspecified organism
CPT/HCPCS: 71046

== ENCOUNTER 2021-10-28 17:47 | Outpatient (REF) | payer BC, SELFPAY ==
[2021-10-28 20:44] LABS: HCT 39.9 % (36.0-46.0); HGB 12.5 g/dL (11.2-15.7); MCHC 31.3 % (32.0-36.0); MCV 89 fL (80-95); Platelet Count 431 10^3/uL (130-400); RBC 4.47 10^6/uL (3.93-5.22); RDW-SD 42.8 fL; WBC 6.12 10^3/uL (4.4-10.8)
[2021-10-28 20:49] LABS: ESR 51 mm/hr (0-30)
[2021-10-28 21:03] LABS: ALT 25 U/L (14-59); AST 20 U/L (15-37); Albumin 3.7 g/dL (3.4-5.0); Alkaline Phosphatase 56 U/L (46-116); Anion Gap 10.1 mmol/L (3-11); BUN 11 mg/dL (7-18); Bilirubin, Total 0.3 mg/dL (0.2-1.0); CO2 25.9 mmol/L (21.0-32.0); Calcium 10.3 mg/dL (8.5-10.1); Chloride 108 mmol/L (98-107); Estimated GFR 56.75 (mL/min/1.73m2); Glucose 88 mg/dL (74-106); Potassium 3.7 mmol/L (3.5-5.1); Sodium 144 mmol/L (136-145); Total Protein 7.3 g/dL (6.4-8.2)
== END 2021-10-28 17:48 | disposition home or self-care (01) ==
LOC: NCHCN 17:47
PROVIDERS: PCP Family Medicine; Visit Provider Family Medicine
DX: R53.83 Other fatigue (principal)
CPT/HCPCS: 80053; 85027; 85652; 84443

== ENCOUNTER → 2021-12-01 03:06 | Outpatient (CLI) | payer BC, SELFPAY ==
--- NOTE | 2021-12-01 06:30 | DI.MRI_ITS ---
Exam(s) MR IAC BRAIN WO/W EXAM: MR IAC BRAIN WO/W CLINICAL HISTORY: Asymmetrical sensorineural hearing loss - right,anosmia TECHNIQUE: Multiplanar multisequence MRI of the brain was performed. Both noninfused and contrast i nfused sequences were performed. Performed IAC protocol IV Contrast injected was 12 cc Dotarem. COMPARISON: CT CT HEAD WO from 07/14/2020 FINDINGS: CEREBRAL PARENCHYMA: No evidence of intracranial hemorrhage, mass effect nor shift of midline structu re. No extraaxial fluid collections. Ventricles are not enlarged nor shifted. Focal area of well-defined signal abnormality on the right side corresponds to finding on the CT scan of 07/14/2020 and is probably a developmental sub lenticular cyst. This measures approximately 7 x 5 millimeters. There is no abnormal signal abnormality in the periventricular white matter. No abnormal signal on di ffusion imaging. There are no ring enhancing lesions in the brain. There is no abnormal meningeal enhancement. IAC'S: There are no masses in the cerebellopontine angles and no evidence of intra canalicular acoust ic neuroma-schwannoma. On the sub millimeters slice sequence the 7th and 8th nerves in the IAC's yovani aterally appear unremarkable. Visualized 5th cranial nerves-trigeminal nerves also appear unremarkab le as they head anteriorly towards Meckel's cave. PITUITARY GLAND: No mass nor parasellar abnormality. No obvious abnormality in the cavernous sinuses. FLOW VOIDS: The expected flow void are noted. No evidence of obvious aneurysm nor obvious vascular ma lformation. PARANASAL SINUSES: The visualized paranasal sinuses appear unremarkable. However, there is abnormal s ignal throughout the left-sided mastoid air cells consistent with mastoiditis. Lesser amount of the s brennan seen on the right side. ORBITS: No obvious abnormal findings. IMPRESSION: 1. No evidence of acoustic neuroma-schwannoma. Also no ring enhancing lesions in brain nor abnormal m eningeal enhancement 2. There is signal abnormality throughout the left mastoid air cells, consistent with mastoiditis. Le sser amount of increased signal is noted in the right mastoid air cells. This finding was not evident on a CT scan of the brain performed 07/14/2020. 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 DATA REPOSITORY:
[2021-12-01] MEDS: Normal Saline Flush 10 ML SYR IVP (08:41)
== END ==
PROVIDERS: PCP Family Medicine; Visit Provider Registered Nurse Maternal Newborn
DX: H90.41 Sensorineural hearing loss, unilateral, right ear, with unrestricted hearing on the contralateral side (principal); R43.0 Anosmia
CPT/HCPCS: 70553

== ENCOUNTER 2022-05-09 17:45 | Emergency (ER) | payer BC, SELFPAY ==
[2022-05-09 17:52] VITALS: BP 151/57; PULSE 106; RESP 18; TEMP 36.6; O2SAT 99
--- NOTE | 2022-05-09 19:30 | DI.RAD_ITS ---
Exam(s) XR ABDOMEN FLAT UPRIGHT EXAM: 2D digital imaging was performed. CLINICAL HISTORY: severe constipation. COMPARISON: No exams were available for comparison TECHNIQUE: Supine views of the abdomen was performed. Three images were obtained. FINDINGS: LUNG BASES: Clear. BOWEL GAS PATTERN: Nondistended. There is a large amount of stool throughout the colon. FREE AIR: None. CALCIFICATIONS: No radiopaque calcifications. OSSEOUS STRUCTURES: Normal for age. OTHER FINDINGS: None. IMPRESSION: Findings consistent with constipation. DATA REPOSITORY: RADIATION DOSE DELIVERED:
--- NOTE | 2022-05-09 20:22 | ED.GENADUL_ITS ---
Discharge Plan Disposition Patient Disposition: Home Condition: Stable Discharge Details Clinical Impression: Constipation Primary Care Provider: Berta Winchester ED Provider: Zeny Altamirano Home Meds and New Rx's Prescriptions: Continued clonazepam [Klonopin] 1 mg tablet 1 mg PO BID Rx Instructions: Brand only- no generics sertraline 100 mg tablet 150 mg PO DAILY albuterol sulfate 8.5 GM HFA aerosol inhaler 2 puff Inhalation Q6H PRN fluticasone propionate 50 mcg/actuation spray,suspension 2 spray intranasal BID Rx Instructions: administer into each nostril benzonatate 100 mg capsule 100 mg PO Q8H PRN albuterol sulfate [ProAir HFA] 90 mcg/actuation HFA aerosol inhaler 1 puff inhalation Q6H PRN levothyroxine 50 mcg capsule 50 mcg PO DAILY polyethylene glycol 3350 [Miralax] 17 gram/dose powder 17 g PO DAILY Discharge Instructions Instructions: Constipation (ED) Additional Instructions: Use MiraLAX twice daily until stool is regular and then can reduce back to daily. Start tonight when you get home Take Fleet enema as directed when you get home. Drink 6 to 8 glasses of water daily to stay well-hydrated Referrals: Berta Winchester [Primary Care Provider] - Discharge Data Discharge Date/Time-TO BE ENTERED AT DEPARTURE: 05/09/22 20:38 Medical Decision Making after rectal exam patient was able to evacuate large amount of formed stool reporting her symptoms were resolved. Sign Out No HPI General Date/Time Provider Initiated Documentation: 05/09/22 18:44 . Limitations to Documentation: no limitations . Information obtained by: patient . HPI Narrative: Presents with 2 to 3-week history of constipation. States she tried to digitally disimpact herself but was unable to reported that something was protruding from her rectum. States that she was not taking the MiraLAX and was trying to prevent herself from passing a bowel movement because she said it was too big , denies similar history Related Data Home Medications Medication Instructions Recorded Confirmed albuterol sulfate 90 mcg/actuation 2 puff inhalation Q6H PRN 01/04/15 11/09/21 aerosol inhaler clonazepam 1 mg tablet (Klonopin) 1 mg PO BID 05/13/19 05/09/22 sertraline 100 mg tablet 150 mg PO DAILY 02/16/21 05/09/22 albuterol sulfate 90 mcg/actuation 1 puff inhalation Q6H PRN 11/08/21 11/09/21 aerosol inhaler (ProAir HFA) benzonatate 100 mg capsule 100 mg PO Q8H PRN 11/08/21 11/09/21 fluticasone propionate 50 2 spray intranasal BID 11/08/21 11/09/21 mcg/actuation nasal spray,suspension levothyroxine 50 mcg capsule 50 mcg PO DAILY 11/08/21 11/09/21 polyethylene glycol 3350 17 17 g PO DAILY 11/08/21 05/09/22 gram/dose oral powder (Miralax) Allergies Allergy/AdvReac Type Severity Reaction Status Date / Time gluten Allergy Intermediate Verified 05/09/22 17:55 erythromycin base AdvReac Intermediate Nausea Verified 05/09/22 17:55 iron AdvReac Intermediate Nausea Verified 05/09/22 17:55 Penicillins AdvReac Intermediate flu Verified 05/09/22 17:55 symptoms Sulfa (Sulfonamide AdvReac Intermediate chest Verified 05/09/22 17:55 Antibiotics) feels on fire General Stated Complaint: GenMedical NELLA: 4 Review of Systems Constitutional Constitutional: Denies fever(s) and Reports poor appetite Gastrointestinal Gastrointestinal: Reports constipation, Denies diarrhea, Denies nausea and Denies vomiting PFSH All Active Problems (Updated 05/09/22 @ 20:27 by Zeny Altamirano NP) Constipation (Acute) Anosmia (Acute) Asymmetrical sensorineural hearing loss (Acute) Adhesive capsulitis of right shoulder (Acute) Tendinopathy of right biceps tendon (Acute) Vaginal atrophy (Acute) Interstitial cystitis (Acute) Medical History Abdominal pain Abnormal uterine bleeding Adenomatous colon polyp MADISON positive Anemia, iron deficiency Anxiety Anxiety and depression Ceruminosis Chronic constipation Cough Cystitis Dizziness Dry eyes Family history of heart disease Fatigue Food allergy Grief reaction Hair loss Headache Hearing loss Hypercalcemia Hyperparathyroidism Hypothyroidism Left elbow pain Pain, joint, shoulder, right Paresthesias Pneumonia Rotator cuff syndrome Seizure disorder Syncope Vertigo Surgical History Colonoscopy - MAC (04/18/17) Tubal Ligation, Family History Mother Breast cancer COPD (chronic obstructive pulmonary disease) Father Valvular heart disease at 77 Bladder cancer Social History Smoking/Tobacco Use Status: Never Smoking risk assessment performed?: Yes Alcohol Intake: current Alcohol Intake frequency: holidays/special occasions only Drug use: Never Substance use type: does not use Do you feel safe at home: Yes Do you feel safe in your relationship?: Yes Exam Const General: cooperative, comfortable and acute distress mild Nutritional Appearance: average body habitus Orientation: alert, awake and oriented x3 GI Inspection: normal to inspection and distended Palpation: soft Rectal Exam - female: abnormal sphincter tone, No abnormal stool, fecal impaction, No fissure, heme negative stool, No hemorrhoids, No laceration, No lesions and tenderness Other: No hemorrhoids or rectal prolapse noted. Stool in vault soft to formed and some constipated small round Skin General skin exam: no rashes or lesions noted Course Vital Signs Vital signs: Vital Signs Temperature 36.6 C 05/09/22 17:52 Pulse 106 H 05/09/22 17:52 Respiratory Rate 18 05/09/22 17:52 Blood Pressure 151/57 H 05/09/22 17:52 Pulse Oximetry 99 05/09/22 17:52 Temperature 36.6 C 05/09/22 17:52 Temperature Source Temporal Artery Scan 05/09/22 17:52 Pulse 106 H 05/09/22 17:52 Respiratory Rate 18 05/09/22 17:52 Respiratory Effort Non-Labored 05/09/22 17:57 Blood Pressure 151/57 H 05/09/22 17:52 Blood Pressure Position Sitting 05/09/22 17:52 Pulse Oximetry 99 05/09/22 17:52 Oxygen Delivery Method Room Air 05/09/22 17:52 Oxygen Flow Rate 0 05/09/22 17:52
--- NOTE | 2022-05-09 20:26 | DI.VRAD_ITS ---
PROCEDURE INFORMATION: Exam: XR Abdomen Exam date and time: 05/09/2022 7:52 PM Age: 61 years old Clinical indication: Patient HX: Severe constipation TECHNIQUE: Imaging protocol: Radiologic exam of the abdomen. Views: 2 Views. Upright and supine views. COMPARISON: CT ABDOMEN PELVIS W 03/25/2019 6:59 PM FINDINGS: Gastrointestinal tract: Normal. No bowel dilation. There is excessive colonic stool content. Intraperitoneal space: Normal. No free air. Bones/joints: Unremarkable for age. IMPRESSION: No acute findings. Excessive colonic stool content compatible with history of constipation. Dictated and Authenticated by: Gurdeep Arizmendi MD. Ordering:JAIRO Moura MD
[2022-05-09 21:23] VITALS: RESP 16
== END 2022-05-09 20:38 | disposition home or self-care (01) ==
PROVIDERS: Emergency Provider Nurse Practitioner Acute Care; PCP Family Medicine
DX: K59.00 Constipation, unspecified (principal)
CPT/HCPCS: 99283; 74019

== ENCOUNTER 2023-01-22 11:29 | Outpatient (REF) | payer BC, SELFPAY ==
[2023-01-22 15:26] LABS: ALT 37 U/L (14-59); AST 24 U/L (15-37); Albumin 3.8 g/dL (3.4-5.0); Alkaline Phosphatase 55 U/L (46-116); Anion Gap 9.1 mmol/L (3-11); BUN 9 mg/dL (7-18); Bilirubin, Total 0.3 mg/dL (0.2-1.0); CO2 26.9 mmol/L (21.0-32.0); CREATININE 0.9 mg/dL (0.55-1.02); Calcium 9.6 mg/dL (8.5-10.1); Calculated LDL 196 mg/dL (<100); Chloride 109 mmol/L (98-107); Cholesterol 280 mg/dL (<200); Estimated GFR 73.19 (mL/min/1.73m2); Glucose 94 mg/dL (74-106); HDL Cholesterol 55 mg/dL (40-60); Potassium 4.1 mmol/L (3.5-5.1); Sodium 145 mmol/L (136-145); TSH (W/Ref FT4) 2.41 uIU/mL (0.36-3.74); Triglyceride 148 mg/dL (<150)
== END 2023-01-22 11:30 | disposition home or self-care (01) ==
LOC: NCHCN 11:29
PROVIDERS: PCP Family Medicine; Visit Provider Family Medicine
DX: R53.83 Other fatigue (principal); D50.9 Iron deficiency anemia, unspecified; E03.9 Hypothyroidism, unspecified; E78.89 Other lipoprotein metabolism disorders
CPT/HCPCS: 80053; 80061; 84443

== ENCOUNTER → 2023-02-14 01:00 | Outpatient (CLI) | payer BC, SELFPAY ==
--- NOTE | 2023-02-14 09:15 | DI.MAMMO_ITS ---
Exam(s) MAMMO SCREENING EXAM: MAMMO SCREENING CLINICAL HISTORY: SCREENING, Z12.31 TECHNIQUE: Mammograms were interpreted according to the usual protocol including computer analysis w [employer] CAD system, tomosynthesis and C-view imaging. COMPARISON: 2013 through 2020 FINDINGS: The breasts are composed of scattered fibroglandular densities, Breast Density category B. No suspicious masses or suspicious microcalcifications are seen. Stable circumscribed nodule lower i nner quadrant right breast. No skin thickening or abnormal axillary lymph nodes are seen. There has been no significant change from prior exams. IMPRESSION: BI-RADS Cat 2 - Benign Findings Yearly screening mammography is recommended. Breast Density - Category B, scattered fibroglandular densities. A negative radiographic report should not delay biopsy if a dominant or clinically suspicious mass is present. Up to ten percent of cancers are not identified on mammography. A negative report may reinforce clinical impression. Adenosis and dense breasts may obscure an underlying neoplasm. False positive reports average 6 to 10%. Patient will receive a letter notifying them of these results.
== END ==
PROVIDERS: PCP Family Medicine; Visit Provider Family Medicine
DX: Z12.31 Encounter for screening mammogram for malignant neoplasm of breast (principal)
CPT/HCPCS: 77063; 77067

== ENCOUNTER 2023-06-25 19:23 | Inpatient (IN) | payer MEDICAID, SELFPAY ==
[2023-06-25] VITALS (35 sets, daily range): BP systolic 136–167; BP diastolic 58–72; PULSE 90–124; RESP 12–30; TEMP 36.2; O2SAT 93–100
--- NOTE | 2023-06-25 20:11 | W.ED.GENAD ---
HPI General Stated Complaint: Orthopedic NELLA: 3 Date/Time Provider Initiated Documentation: 06/25/23 19:46. HPI Narrative: MDM Primary survey intact. Reassuring shock index. On secondary survey patient has pain to her upper thoracic spine concerning for possibility of fracture. Given mechanism we will complete trauma del real scan. Will keep patient immobilized in cervical collar. Will keep patient n.p.o. order type and screen treat pain with 50 mcg of fentanyl. Will order lactate to assess for hypoperfusion and the reason for blood gas to assess for acidemia. Extended FAST exam negative. Will assess troponin to assess for myocardial injury given mechanism. Given left shoulder pain will obtain left shoulder plain film. 9:15 PM CBC shows leukocytosis but no anemia nor thrombocytopenia. 9:24 PM Negative troponin. Negative ethanol. Comprehensive metabolic panel shows mildly elevated renal function no HARJEET. Anion gap of 14. Mild hypokalemia serum potassium of 3.0. Hyperglycemia but normal bicarbonate??not consistent with DKA. Mild lactic acidosis with a serum lactate of 2.8 mmol/L. Venous blood gas showing no acidemia nor hypercarbia. 9:33 PM Patient was found to have a trace left-sided pneumothorax. Will place on nonrebreather treat pain with hydromorphone. Will also order portable chest x-ray to have the baseline. Anticipate touching base with general surgery locally if del real scan does not show any other traumatic abnormalities. 10:[address] head patient was found to have no evidence of recent intracranial hemorrhage. Patient did have a left parietal scalp hematoma but no adjacent fracture. On CT cervical spine patient was found to have no acute fractures. Patient was however found to have an acute fracture with minimal displacement involving the posterior left first rib at the level of the costovertebral joint. Based on modified [place] criteria patient will require CT angiogram of her neck. Will touch base with trauma at [facility]. On CT abdomen pelvis patient was found to have a tiny left pneumothorax but no acute abdominal or pelvic trauma. 10:47 PM Unfortunately [facility] has no capacity to accept the patient. Based on her upper rib fracture and my concern for possibility of blunt cerebrovascular injury will obtain CT angiogram of the patient's neck. Will touch base with spine concerning immobilization. 10:57 PM I spoke with Dr. Gaines who agreed graciously to accept the patient for local hospitalization. Will provide patient with her home dose of clonazepam 1 mg. Patient did have concerns for a possible left clavicular fracture. Will make patient nonweightbearing left upper extremity with splint. Will touch base with orthospine concerning clearance of her cervical spinal collar. I offered to touch base with orthopedics however Dr. Gaines said that she would do this in the morning. She will likely benefit from repeat chest x-ray in the morning and tertiary survey. Will advance her diet and treat her with ibuprofen and acetaminophen. 11:34 PM I spoke with Dr. Pak from orthopedics covering spine at [facility]. He reported that if there were no other fractures that patient could be fully mobilized. No indication for orthopedic follow-up. Will maintain patient's cervical spinal collar while awaiting CTA. 11:45 PM Patient has not yet gone down for CT angiogram. Will sign patient out to oncoming ED provider pending CT report. If patient has any concern for blunt cerebrovascular injury anticipate benefit from touching base with trauma at [facility]. Chronic conditions affecting the care of the patient: Anxiety History obtained from an outside historian: Patient's External record review: [facility] EMR [Diagnostic interpretations performed by me: Per my independent interpretation chest x-ray shows: Medications: Fentanyl hydromorphone Social determinants of health affecting disposition: N/A Management discussed with: Trauma & orthospine [facility] Treatment/interventions considered: N/A Response to therapies provided: Improved pain following medication HPI This is a 62-year-old female with history of anxiety arriving to the emergency department via private vehicle after falling down a flight of stairs. Patient is not sure whether or not she lost consciousness. She has pain in her left shoulder and left chest. She feels anxious. She has been ambulatory since her fall. She does not take any blood thinners. She feels short of breath and also has pain in her back. She was trying to get a mattress down a flight of stairs when the mattress began slipping and she jumped on top of the mattress. She had a railing and fell approximately 7 feet to the floor. Exam General: Uncomfortable-appearing in no acute distress speaking in complete sentences. Head: Normocephalic, atraumatic. Eye:[Pupils equal, round reactive to light.] Extraocular eye movements intact. No conjunctival injection. No scleral icterus. No hemotympanum bilaterally. Ear, nose, mouth, throat: Grossly normal inspection. Normal voice, handling secretions normally. Neck: Trachea midline. Midline lower cervical spinal tenderness Cardiovascular: Well-perfused distal extremities. Rapid regular rate Respiratory: Nonlabored respiration. Clear lungs bilaterally Gastrointestinal: Nondistended abdomen. Soft nontender Musculoskeletal: Left upper extremity with tenderness at the left shoulder. No obvious deformity. No lacerations. Right upper extremity nontender. Bilateral lower extremities nontender. Pelvis stable anterior posterior compression. Skin: Normal for age and race, grossly normal temperature and turgor. No acute rash. Neurologic: Alert and appropriate, no apparent acute deficits. GCS 15. Psychiatric: Mood and manner are appropriate. Grooming and personal hygiene are appropriate. Related Data Home Medications Medication Instructions Recorded Confirmed albuterol sulfate 90 mcg/actuation 2 puff inhalation Q6H PRN 01/04/15 06/25/23 aerosol inhaler clonazepam 1 mg tablet (Klonopin) 1 mg PO BID 05/13/19 06/25/23 albuterol sulfate 90 mcg/actuation 1 puff inhalation Q6H PRN 11/08/21 06/25/23 aerosol inhaler (ProAir HFA) fluticasone propionate 50 2 spray intranasal BID 11/08/21 06/25/23 mcg/actuation nasal spray,suspension levothyroxine 50 mcg capsule 50 mcg PO DAILY 11/08/21 06/25/23 polyethylene glycol 3350 17 17 g PO DAILY 11/08/21 06/25/23 gram/dose oral powder (Miralax) sertraline 100 mg tablet 100 mg PO DAILY 04/24/23 06/25/23 Allergies Allergy/AdvReac Type Severity Reaction Status Date / Time gluten Allergy Intermediate Verified 06/25/23 19:39 erythromycin base AdvReac Intermediate Nausea Verified 06/25/23 19:39 iron AdvReac Intermediate Nausea Verified 06/25/23 19:39 Penicillins AdvReac Intermediate flu Verified 06/25/23 19:39 symptoms Sulfa (Sulfonamide AdvReac Intermediate chest Verified 06/25/23 19:39 Antibiotics) feels on fire [facility] All Active Problems (Updated 06/25/23 @ 23:02 by Eulalio Iraheta MD) Closed fracture of left clavicle (Acute) Closed fracture of transverse process of thoracic vertebra (Acute) Multiple fractures of ribs of left side (Acute) Pneumothorax, left (Acute) Anosmia (Acute) Asymmetrical sensorineural hearing loss (Acute) Adhesive capsulitis of right shoulder (Acute) Tendinopathy of right biceps tendon (Acute) Vaginal atrophy (Acute) Interstitial cystitis (Acute) Medical History (Updated 06/25/23 @ 23:02 by Eulalio Iraheta MD) Hx of syncope Rotator cuff syndrome of left shoulder Hx of adenomatous polyp of colon Right shoulder pain Tension headache Facial pain, atypical Anxiety with depression Seborrheic dermatitis Memory impairment Frequent falls Family history of heart disease Food allergy Cough Cystitis Dry eyes Adenomatous colon polyp [place] positive Hyperparathyroidism Hypercalcemia Anxiety and depression Pneumonia Ceruminosis Fatigue Hearing loss Anemia, iron deficiency Hypothyroidism Seizure disorder Syncope Chronic constipation Paresthesias Vertigo Dizziness Grief reaction Abnormal uterine bleeding Headache Rotator cuff syndrome Left elbow pain Hair loss Pain, joint, shoulder, right Anxiety Abdominal pain Surgical History Tubal Ligation, Colonoscopy - [facility] (04/18/17) Family History Mother Breast cancer COPD (chronic obstructive pulmonary disease) Father Valvular heart disease at 77 Bladder cancer Social History Smoking/Tobacco Use Status: Never Smoking risk assessment performed?: Yes Alcohol Intake: current Alcohol Intake frequency: holidays/special occasions only Drug use: Never Substance use type: does not use Housing: house Do you feel safe at home: Yes Do you feel safe in your relationship?: Yes Course Vital Signs Vital signs: Vital Signs Temperature 36.2 C L 06/25/23 19:37 Pulse 109 H 06/25/23 19:37 Respiratory Rate 06/25/23 19:37 Blood Pressure 164/72 H 06/25/23 19:37 Pulse Oximetry 97 06/25/23 19:37 Temperature 36.2 C L 06/25/23 19:37 Temperature Source Temporal Artery Scan 06/25/23 19:37 Pulse 109 H 06/25/23 19:37 Respiratory Rate 24 06/25/23 19:37 Respiratory Effort Short of Breath 06/25/23 19:41 Blood Pressure 164/72 H 06/25/23 19:37 Blood Pressure Position Sitting 06/25/23 19:37 Pulse Oximetry 97 06/25/23 19:37 Oxygen Delivery Method Room Air 06/25/23 19:37 Oxygen Flow Rate 0 06/25/23 19:37 Pain Level 10 06/25/23 19:37 Medical Decision Making Quality:SDOH Health Related Social Needs: No Data to Display Discharge Plan Disposition Patient Disposition: Admit to [facility] Discharge Details Clinical Impression: Pneumothorax, left, Multiple fractures of ribs of left side, Closed fracture of transverse process of thoracic vertebra, Closed fracture of left clavicle Primary Care Provider: Berta Winchester ED Provider: Eulalio Iraheta [place] Meds and New Rx's Prescriptions: No Action clonazepam [Klonopin] 1 mg tablet 1 mg PO BID Rx Instructions: Brand only- no generics albuterol sulfate 8.5 GM HFA aerosol inhaler 2 puff Inhalation Q6H PRN fluticasone propionate 50 mcg/actuation spray,suspension 2 spray intranasal BID Rx Instructions: administer into each nostril albuterol sulfate [ProAir HFA] 90 mcg/actuation HFA aerosol inhaler 1 puff inhalation Q6H PRN levothyroxine 50 mcg capsule 50 mcg PO DAILY polyethylene glycol 3350 [Miralax] 17 gram/dose powder 17 g PO DAILY sertraline 100 mg tablet 100 mg PO DAILY POCUS Exam (ED) Efast Exam DATE OF EXAM: 06/25/23 TIME OF EXAM: 19:58 PROVIDER THAT PEFORMED THE STUDY: Eulalio Iraheta REASON FOR EXAM: Fall VISUALIZED STRUCTURES: Hepatorneal space, Pelvis, Pericardium, Perisplenic space, Pleural space/left and Pleural space/right PERTINENT FINDINGS/IMPRESSION: no apparent free fluid, lung sliding, left side, lung sliding,right side, no pericardial effusion, no pleural effusion on the left side, no pleural effusion on the right side, no pneumothorax on left side and no pneumothorax on right side INCIDENTAL FINDINGS: Negative extended FAST exam Limited Transthoracic Echo: Exam complete Limited Abdominal Exam: Exam complete Limited Retroperitoneal Exam: Exam complete
[2023-06-25] MEDS: Normal Saline 500 ML IV ×2 (20:30→22:30)
--- NOTE | 2023-06-25 20:30 | DI.CT_ITS ---
Exam(s) CT HEAD CERVICAL SPINE WO EXAM: CT HEAD CERVICAL SPINE WO CLINICAL HISTORY: Midline cervical spine tenderness. TECHNIQUE: Imaging Protocol: Axial computed tomography images with coronal and sagittal reformatted images were created and reviewed COMPARISON: CT CT HEAD WO from 07/14/2020 FINDINGS: BRAIN: Left parietal region scalp hematoma evident. No gas in the soft tissues at this level. There are no skull fractures nor fluid in the visualized paranasal sinuses. There is no evidence of intracranial hemorrhage, mass effect, or shift of midline structures. There are no extra-axial fluid collections. The ventricles are not enlarged or shifted and there is no blo od within the ventricular system nor within the basal cisterns. CERVICAL SPINE: There is no evidence of cervical vertebral fracture nor listhesis. No significant prevertebral soft tissue swelling. Mild disc space narrowing C5-6 and C6-7 levels. There is no significant facet joint malalignment. No significant osseous lesions evident. There fractures of the left 1st and 2nd ribs as well as the right 1st rib. See separate dictation IMPRESSION: No acute intracranial findings on this noninfused CT scan of the brain.Parietal scalp hematoma. No evidence of cervical spine fracture, malalignment, nor acute compromise of the cervical spinal can al. There are acute fractures of the 1st and 2nd left ribs and 1st right rib. See separate thoracolumbar CT dictation for details. RADIATION DOSE DELIVERED: 1,070.66mGy.cm Total DLP DATA REPOSITORY: All CT scans at this facility are submitted to the National Radiology Data Registry (NRDR) Dose Index Registry (DIR) with the [employer] (ACR). RADIATION OPTIMIZATION: All CT scans at this facility use at least one of these dose optimization te chniques: automated exposure control; mA and/or kV adjustment per patient size (includes targeted exa ms where dose is matched to clinical indication); or iterative reconstruction.
--- NOTE | 2023-06-25 20:30 | DI.CT_ITS ---
Exam(s) CT CHEST/ABD/PEL W EXAM: CT CHEST/ABD/PEL W CLINICAL HISTORY: Fall downstairs. TECHNIQUE: Imaging Protocol: Axial computed tomography images with coronal and sagittal reformatted images were created and reviewed CONTRAST MATERIAL: Intravenous: Omnipaque 350 Contrast volume:100 ml Oral: None COMPARISON: CT CT ABDOMEN PELVIS W from 03/25/2019 FINDINGS: CHEST: LUNGS: There is a small 5 percent left-sided pneumothorax. There are mildly displaced fractures of t he left 1st and 2nd ribs posteriorly as well as the left T2 transverse process. There is also a mild ly displaced fracture of the anterolateral right 1st rib. No lower down rib fractures identified. M ild subpleural infiltrate in the left lower lobe noted most probably related to hypoaeration. There is no pleural effusion on either side. No large lung contusions. No significant focal findings in t he trachea and mainstem bronchi. No incidental lung lesions. MEDIASTINUM: No evidence of sternal fracture nor significant mediastinal hematoma. Visualized thyroi d unremarkable.No incidental hilar nor mediastinal adenopathy. CARDIAC: Heart size is normal. There is no pericardial effusion.Thoracic aorta is intact. OSSEOUS: Bilateral upper rib fractures involving the left 1st and 2nd ribs and right 1st rib and disl ocation of the left AC joint. ABDOMEN: There is no ascites. No evidence of mesenteric nor bowel wall hematoma. LIVER: No laceration. No incidental lesions. GALLBLADDER/BILIARY: No obvious gallbladder pathology. CBD is not dilated. PANCREAS: No evidence of pancreatic mass nor dilatation of the pancreatic duct. SPLEEN: Normal size. No lacerations. No lesions. Splenic and portal veins are patent. ADRENALS: There are no significant adrenal masses. KIDNEYS: No renal lacerations nor subcapsular hematomas. Small benign cyst in the inferior pole righ t kidney noted which does not require imaging workup. Even smaller benign cyst in the anterior ozzy x of the opposite-left kidney, also not requiring further workup.. No solid lesions nor calculi nor hydronephrosis. ABDOMINAL AORTA: Intact. No aneurysms. No dissection. Iliac arteries also intact. LYMPH NODES: There is no retroperitoneal nor paraaortic adenopathy. ABDOMINAL WALL: No evidence of significant anterior abdominal wall nor inguinal hernia. No significa nt subcutaneous bruising nor subcutaneous fluid collections. GI: No evidence of bowel hematoma nor mesenteric hematoma. No bowel obstruction nor free air. PELVIS: LYMPH NODES: There is no intrapelvic nor inguinal adenopathy. GI: No evidence of appendicitis.No evidence of sigmoid diverticulitis. URINARY BLADDER: Unremarkable. REPRODUCTIVE: Retroverted uterus with what appears to be fundal fibroid. No abnormal adnexal masses. No free fluid in the pelvis. OSSEOUS: No fractures. No incidental osseous lesions. IMPRESSION: 1. There are fractures of the left 1st and 2nd rib as well as fracture of the right 1st rib and there is also dislocation of the left AC joint. There is a small approximately 5 percent left-sided pneum othorax. No large lung contusion. No pleural effusion. No pericardial effusion. Aorta is intact. 2. No significant acute trauma sequelae in the abdomen and pelvis. See separate dictations on the same patient RADIATION DOSE DELIVERED: 1,134.56mGy.cm Total DLP DATA REPOSITORY: All CT scans at this facility are submitted to the National Radiology Data Registry (NRDR) Dose Index Registry (DIR) with the [employer] (ACR). RADIATION OPTIMIZATION: All CT scans at this facility use at least one of these dose optimization te chniques: automated exposure control; mA and/or kV adjustment per patient size (includes targeted exa ms where dose is matched to clinical indication); or iterative reconstruction.
--- NOTE | 2023-06-25 20:33 | DI.CT_ITS ---
Exam(s) CT THORACIC LUMBAR SPINE REC EXAM: CT THORACIC LUMBAR SPINE REC CLINICAL HISTORY: Midline thoracic spinal tenderness TECHNIQUE: COMPARISON: CT CT CHEST/ABD/PEL W from 06/25/2023 FINDINGS: CT THORACIC SPINAL COLUMN: There is a minimally displaced fracture the posterior aspect of the left 1st rib and posteromedial le ft 2nd rib with subjacent small left apical subpleural hematoma. There is also a minimally displaced fracture of left T2 transverse process. Also evident is a tiny less than 5 percent left apical pneu mothorax.. On the opposite-right side there is a mildly displaced fracture of the 1st rib anterolaterally. There are no compression fractures nor other fractures of the thoracic vertebral bodies. There is no facet malalignment. CT LUMBOSACRAL SPINAL COLUMN: No evidence of fracture or listhesis. No pars defects. No disc space narrowing. Some facet arthrop athy noted at lower levels. No facet malalignment. No transverse process fractures. IMPRESSION: 1. Acute mildly displaced fractures of the posterior aspect of the left 1st and 2nd ribs. Also minim ally displaced left T2 transverse process fracture. Also small left apical hematoma and tiny left pn eumothorax, estimated at less than 5 percent. 2. Acute mildly displaced fracture of the posterolateral right 1st rib. 3. No fractures of the lumbosacral spine
[2023-06-25] MEDS: fentaNYL 100 MCG/2 ML VIAL 50 MCG IVP ×2 (20:35→20:50)
[2023-06-25 20:55] LABS: BE (Venous) -2 mmol/L (-2-3); HCO3 (Venous) 22 mmol/L (23-28); O2 Sat (Venous) 90 %; TCO2 (Venous) 20 mmol/L (24-29); pCO2 (Venous) 34 mmHg (41-51); pH (Venous) 7.43 (7.31-7.41); pO2 (Venous) 55 mmHg
[2023-06-25 20:56] LABS: Abs Immature Grans 0.08 10^3/uL (0.0-0.06); Absolute Basophil Count 0.06 10^3/uL (0.0-0.2); Absolute Lymphocyte Count 2.36 10^3/uL (1.2-3.4); Absolute Monocyte Count 0.71 10^3/uL (0.1-0.8); Basophils % 0.4; Eosinophils % 0.5; HCT 41.2 % (36.0-46.0); HGB 13.7 g/dL (11.2-15.7); Immature Grans % 0.5; Lymphocytes % 16.2; MCH 28.7 pg (27.0-33.0); MCHC 33.3 % (32.0-36.0); MCV 86 fL (80-95); MPV 8.5 fL (8.0-11.0); Monocytes % 4.9; Neutrophils % 77.5; Platelet Count 377 10^3/uL (130-400); RBC 4.77 10^6/uL (3.93-5.22); RDW 12.8 % (11.7-14.6); RDW-SD 40.2 fL; WBC 14.58 10^3/uL (4.4-10.8)
[2023-06-25] MEDS: Omnipaque 350 MG/ML 100 ML BTL IJ (20:57)
[2023-06-25 20:58] LABS: Absolute Eosinophil Count 0.07 10^3/uL (0.0-0.7)
[2023-06-25 20:59] LABS: Lactate 2.8 mmol/L (0.6-1.4)
[2023-06-25] MEDS: Normal Saline Flush 10 ML SYR IVP (20:59)
[2023-06-25] MEDS: Normal Saline - Diluent 50 ML VIAL IJ (20:59)
[2023-06-25 21:16] LABS: ALT 36 U/L (14-59); AST 31 U/L (15-37); Alkaline Phosphatase 45 U/L (46-116); Anion Gap 13.9 mmol/L (3-11); BUN 18 mg/dL (7-18); Bilirubin, Total 0.5 mg/dL (0.2-1.0); CO2 21.1 mmol/L (21.0-32.0); CREATININE 1.1 mg/dL (0.55-1.02); Calcium 10.4 mg/dL (8.5-10.1); Chloride 104 mmol/L (98-107); Estimated GFR 57.52 (mL/min/1.73m2); Glucose 145 mg/dL (74-106); Sodium 139 mmol/L (136-145); Total Protein 7.8 g/dL (6.4-8.2); Troponin I < 50 ng/L (<or=60)
[2023-06-25 21:17] LABS: ETHANOL BLOOD < 3.0 mg/dL (<10)
--- NOTE | 2023-06-25 21:34 | DI.RAD_ITS ---
Exam(s) XR CHEST 1V IN DI DEPT EXAM: XR CHEST 1V IN DI DEPT CLINICAL HISTORY: Left trace pneumothorax. TECHNIQUE: 2D digital imaging was performed. COMPARISON: CR XR CHEST 2V PA LATERAL from 10/11/2021 FINDINGS: Single AP portable view. Heart size is upper normal. The mediastinum is not widened. Lungs are clear. No infiltrates nor obvious pleural effusions. IMPRESSION: No acute pulmonary findings on this single AP portable view of the chest. DATA REPOSITORY: RADIATION DOSE DELIVERED:
--- NOTE | 2023-06-25 21:45 | DI.RAD_ITS ---
Exam(s) XR SHOULDER LT COMPLETE 2+V EXAM: XR SHOULDER LT COMPLETE 2+V CLINICAL HISTORY: Left shoulder pain. TECHNIQUE: 2D digital imaging was performed. COMPARISON: CR XR SHOULDER RT COMPLETE 2+V from 02/18/2020 FINDINGS: 3 views There is abnormal widening of the left AC joint. No clavicle fracture or obvious acromial fracture. No obvious fracture nor did dislocation of the humeral head from the glenoid fossa but there is mild upward subluxation of the humeral head noted on the AP supine image. Osseous glenoid appears intact. No abnormal soft tissue calcifications. No incidental osseous lesions. No adjacent rib fractures. IMPRESSION: AC joint separation. No fracture or dislocation of the humeral head. DATA REPOSITORY: RADIATION DOSE DELIVERED:
--- NOTE | 2023-06-25 21:58 | DI.VRAD_ITS ---
Addendum created by Ha Denton MD on 06/25/2023 10:07:22 PM EST: ADDENDUM: Acute, mildly displaced fractures of the left posterior 1st and 2nd ribs, with small left apical extrapleural hematoma. Acute, mildly displaced right posterolateral 1st rib fracture. Acute, minimally displaced left T2 transverse process fracture. Addendum created by Ha Denton MD on 06/25/2023 10:02:02 PM EST: THIS REPORT CONTAINS FINDINGS THAT MAY BE CRITICAL TO PATIENT CARE. The findings were verbally communicated by me to ALEXUS LOWE via telephone conference at 10:01 PM EST on 06/25/2023. The findings were acknowledged and understood. Initial report created on 06/25/2023 9:58:16 PM EST: PROCEDURE INFORMATION: Exam: CT Chest With Contrast; Diagnostic Exam date and time: 06/25/2023 9:16 PM Age: 62 years old Clinical indication: Injury or trauma; Generalized; Blunt trauma (contusions or hematomas); Injury date: 06/25/23; Patient HX: Fall down stairs TECHNIQUE: Imaging protocol: Diagnostic computed tomography of the chest with contrast. Radiation optimization: All CT scans at this facility use at least one of these dose optimization techniques: automated exposure control; mA and/or kV adjustment per patient size (includes targeted exams where dose is matched to clinical indication); or iterative reconstruction. Contrast material: [id number]; Contrast volume: 100 ml; Contrast route: INTRAVENOUS (IV); COMPARISON: CR XR CHEST 2V PA LATERAL 10/11/2021 3:23 PM FINDINGS: Lungs: Minimal bibasilar atelectasis. Pleural spaces: Tiny left anteromedial pneumothorax (less than 5%). Heart: Normal. Lymph nodes: No pathologically-enlarged lymph nodes. Vasculature: Unremarkable. No aortic aneurysm. Bones/joints: Mild multilevel thoracic spine degenerative disc space narrowing. Soft tissues: Normal. IMPRESSION: Tiny left anteromedial pneumothorax (less than 5%). PROCEDURE INFORMATION: Exam: CT Abdomen And Pelvis With Contrast Exam date and time: 06/25/2023 9:16 PM Age: 62 years old Clinical indication: Injury or trauma; Generalized; Blunt trauma (contusions or hematomas); Injury date: 06/25/23; Patient HX: Fall down stairs TECHNIQUE: Imaging protocol: Computed tomography of the abdomen and pelvis with contrast. Radiation optimization: All CT scans at this facility use at least one of these dose optimization techniques: automated exposure control; mA and/or kV adjustment per patient size (includes targeted exams where dose is matched to clinical indication); or iterative reconstruction. Contrast material: [id number]; Contrast volume: 100 ml; Contrast route: INTRAVENOUS (IV); COMPARISON: CT ABDOMEN PELVIS W 03/25/2019 6:59 PM FINDINGS: Liver: Normal. Gallbladder and bile ducts: Normal. Pancreas: Normal. Spleen: Normal. Adrenal glands: Normal. No mass. Kidneys and ureters: Bilateral simple renal cysts, for which no further evaluation necessary. Stomach and bowel: Colonic diverticulosis. Appendix: Appendix normal. Intraperitoneal space: Unremarkable. No free air. No significant fluid collection. Vasculature: Atherosclerotic disease of the abdominal aorta and iliac arteries. Lymph nodes: Unremarkable. No enlarged lymph nodes. Urinary bladder: Unremarkable as visualized. Reproductive: Unremarkable as visualized. Bones/joints: No acute abnormality. Soft tissues: Normal. IMPRESSION: No acute abdominal or pelvic abnormality. Dictated and Authenticated by: Ha Denton MD. Ordering:CHAN Tsai MD
--- NOTE | 2023-06-25 22:00 | DI.VRAD_ITS ---
PROCEDURE INFORMATION: Exam: CT Head Without Contrast Exam date and time: 06/25/2023 9:11 PM Age: 62 years old Clinical indication: Injury or trauma; Fall; Blunt trauma (contusions or hematomas); Consciousness not specified; Injury date: 06/25/23; Injury details: Fell down stairs. Midline cervical spine tenderness TECHNIQUE: Imaging protocol: Computed tomography of the head without contrast. Radiation optimization: All CT scans at this facility use at least one of these dose optimization techniques: automated exposure control; mA and/or kV adjustment per patient size (includes targeted exams where dose is matched to clinical indication); or iterative reconstruction. COMPARISON: MR IAC BRAIN WO/W 12/01/2021 8:31 AM FINDINGS: Brain: Cerebral sulci show bilateral symmetry with no supratentorial mass or mass effect detected. Brainstem and cerebellum are unremarkable. There is no evidence of acute transcortical infarction or recent intracranial hemorrhage. Cerebral ventricles: Ventricular and cisternal spaces are normal in size and configuration and there is no midline shift or hydrocephalus seen. Paranasal sinuses: Grossly clear throughout. Mastoid air cells: Grossly clear bilaterally. Bones/joints: Bony calvarium and skull base are intact and no acute fractures are detected. Soft tissues: Superolateral left parietal scalp hematoma identified with no subjacent fracture detected. IMPRESSION: 1. No evidence of acute transcortical infarction, recent intracranial hemorrhage or hydrocephalus. No acute intracranial process is detected. 2. Superolateral left parietal scalp hematoma identified with no subjacent fracture detected. PROCEDURE INFORMATION: Exam: CT Cervical Spine Without Contrast Exam date and time: 06/25/2023 9:11 PM Age: 62 years old Clinical indication: Injury or trauma; Fall; Blunt trauma (contusions or hematomas); Consciousness not specified; Injury date: 06/25/23; Injury details: Fell down stairs. Midline cervical spine tenderness TECHNIQUE: Imaging protocol: Computed tomography of the cervical spine without contrast. Radiation optimization: All CT scans at this facility use at least one of these dose optimization techniques: automated exposure control; mA and/or kV adjustment per patient size (includes targeted exams where dose is matched to clinical indication); or iterative reconstruction. COMPARISON: MR IAC BRAIN WO/W 12/01/2021 8:31 AM FINDINGS: Bones/joints: There is arthrosis involving the anterior atlantodental interval with loss of joint space and marginal osteophyte formation and the odontoid process is grossly intact. There is gross preservation of vertebral body height throughout cervical levels with no acute vertebral body fractures or other significant subluxations detected. Changes of facet arthropathy are most advanced on the left at C2-C3 with no acute fractures detected involving the posterior elements of the cervical spine. Acute fracture with minimal displacement is seen involving the neck of the posterior left 1st rib at the level of the costovertebral joint (see images 46-50 from series 13 images 35-39 from series 10). Discs/Spinal canal/Neural foramina: Loss of disc space height with posterior osteocartilaginous ridging is most significant at C5-C6 and C6-C7 without evidence of significant associated central canal stenosis. No severe bony foraminal narrowings are detected at cervical levels. Lungs: Tiny pneumothoraces are seen as a few small gas bubbles in the pleural space along the apex of the left upper lobe (see images 35-43 from series 10). Soft tissues: Unremarkable. IMPRESSION: 1. Cervical spondylosis with no significant central canal stenosis or bony foraminal narrowing detected. No acute fractures are detected involving the vertebral bodies or posterior elements at cervical levels. 2. Acute fracture with minimal displacement is seen involving the neck of the posterior left 1st rib at the level of the costovertebral joint. 3. Tiny pneumothoraces are seen as a few small gas bubbles in the pleural space along the apex of the left upper lobe as above. Dictated and Authenticated by: Hilario Hernandez MD. Ordering:CHAN Tsai MD
--- NOTE | 2023-06-25 22:08 | DI.VRAD_ITS ---
PROCEDURE INFORMATION: Exam: CT Thoracic Spine Without Contrast Exam date and time: 06/25/2023 9:16 PM Age: 62 years old Clinical indication: Injury or trauma; Fall; Blunt trauma (contusions or hematomas); Injury date: 06/25/23; Patient HX: Midline thoracic spinal tenderness TECHNIQUE: Imaging protocol: Computed tomography of the thoracic spine without contrast. Radiation optimization: All CT scans at this facility use at least one of these dose optimization techniques: automated exposure control; mA and/or kV adjustment per patient size (includes targeted exams where dose is matched to clinical indication); or iterative reconstruction. COMPARISON: CT CHEST/ABD/PEL W 06/25/2023 9:16 PM FINDINGS: Bones/joints: Mild multilevel thoracic spine degenerative disc space narrowing and minimal osteophyte formation. Acute, mildly displaced fractures of the left posterior 1st and 2nd ribs, with small left apical extrapleural hematoma. Acute, mildly displaced right posterolateral 1st rib fracture. Acute, minimally displaced left T2 transverse process fracture. Soft tissues: Unremarkable. Pleural spaces: Tiny left anteromedial pneumothorax (less than 5%). IMPRESSION: 1. Acute, mildly displaced fractures of the left posterior 1st and 2nd ribs, with small left apical extrapleural hematoma. 2. Acute, mildly displaced right posterolateral 1st rib fracture. 3. Acute, minimally displaced left T2 transverse process fracture. 4. Tiny left anteromedial pneumothorax (less than 5%). PROCEDURE INFORMATION: Exam: CT Lumbar Spine Without Contrast Exam date and time: 06/25/2023 9:16 PM Age: 62 years old Clinical indication: Injury or trauma; Fall; Blunt trauma (contusions or hematomas); Injury date: 06/25/23; Patient HX: Midline thoracic spinal tenderness TECHNIQUE: Imaging protocol: Computed tomography of the lumbar spine without contrast. Radiation optimization: All CT scans at this facility use at least one of these dose optimization techniques: automated exposure control; mA and/or kV adjustment per patient size (includes targeted exams where dose is matched to clinical indication); or iterative reconstruction. COMPARISON: CT CHEST/ABD/PEL W 06/25/2023 9:16 PM FINDINGS: Bones/joints: No acute fracture or malalignment. Soft tissues: Unremarkable. IMPRESSION: No acute fracture or malalignment. Dictated and Authenticated by: Ha Denton MD. Ordering:CHAN Tsai MD
[2023-06-25] MEDS: HYDROmorphone 2 MG/ML SYR 0.5 MG IVP (22:10)
--- NOTE | 2023-06-25 22:45 | DI.VRAD_ITS ---
PROCEDURE INFORMATION: Exam: XR Chest Exam date and time: 06/25/2023 10:35 PM Age: 62 years old Clinical indication: Other: Left trace pneumothorax TECHNIQUE: Imaging protocol: Radiologic exam of the chest. Views: 1 view. COMPARISON: CT CHEST/ABD/PEL W 06/25/2023 9:16 PM FINDINGS: Lungs: Normal. Pleural spaces: Unremarkable. No pleural effusion. No visible pneumothorax. Heart/Mediastinum: Normal. Bones/joints: Acute-appearing, minimally displaced left posterior 1st rib fracture. IMPRESSION: No acute findings. Dictated and Authenticated by: Ha Denton MD. Ordering:CHAN Tsai MD
--- NOTE | 2023-06-25 22:47 | DI.VRAD_ITS ---
PROCEDURE INFORMATION: Exam: XR Left Shoulder Exam date and time: 06/25/2023 10:24 PM Age: 62 years old Clinical indication: Injury or trauma; Fall; Blunt trauma (contusions or hematomas); Injury date: 06/25/23; Injury details: Fell down stairs; Patient HX: Left shoulder pain TECHNIQUE: Imaging protocol: Radiologic exam of the left shoulder. Views: 2 or more views. COMPARISON: CR LEFT SHOULDER COMPLETE 08/20/2017 11:31 AM FINDINGS: Bones/joints: Acute, minimally displaced left posterior 1st rib fracture. Mild elevation of the left distal clavicle in relation to the acromion, compatible with left AC joint injury. Tiny crescent-shaped ossific fragment adjacent to the distal left clavicle, possibly small fracture fragment. Soft tissues: Minimal left apical pleural cap, likely extrapleural hematoma. IMPRESSION: 1. Mild elevation of the left distal clavicle in relation to the acromion, compatible with left AC joint injury. 2. Tiny crescent-shaped ossific fragment adjacent to the distal left clavicle, possibly small fracture fragment. Dictated and Authenticated by: Ha Denton MD. Ordering:CHAN Tsai MD
[2023-06-26] VITALS (65 sets, daily range): BP systolic 94–134; BP diastolic 44–75; PULSE 61–114; RESP 9–21; TEMP 36.4–37.2; O2SAT 87–100; BMI 22.3
--- NOTE | 2023-06-26 00:01 | DI.CT_ITS ---
Exam(s) CT CAROTID NECK CTA EXAM: CT CAROTID NECK CTA CLINICAL HISTORY: Upper rib fracture concerning for BCVI. TECHNIQUE: Imaging Protocol: Axial CT angiography was performed with multi-slice acquisition and mu lti-planar and/or 3D reconstructions. CONTRAST MATERIAL: Intravenous: Omnipaque 350 Contrast volume:structured data in ml COMPARISON: CT CT THORACIC LUMBAR SPINE REC from 06/25/2023 FINDINGS: As described on other studies today, there is a left-sided small 5 percent pneumothorax seen anterior ly in the left apex which is related to the fractures of the left 1st and 2nd ribs and fracture of th e left transverse process of T2. There is also a nondisplaced fracture of the right 1st rib. No obv ious pneumothorax seen on the right side. CTA NECK W: AORTIC ARCH ANATOMY: Conventional Anterior circulation: Both common carotid arteries are patent without significant atherosclerotic disease nor dissection an d there is no evidence of significant atherosclerotic disease at the carotid bifurcations and proxima l internal carotid arteries which are shown to be patent in the neck and upper neck. Posterior circulation: Both vertebral arteries are demonstrated to be nicely patent. They region 8 in conventional fashion off the bilateral subclavian arteries with no significant stenosis at their origins. No intraluminal thrombus nor dissection in the vertebral arteries. The vertebral arteries at the level of the rib f ractures appear unaffected. Both vertebral arteries are demonstrated to contribute to the formation of the patent basilar artery at the skull base. Other: No evidence of mediastinal hematoma nor hematoma in the soft tissues of the neck. No incident al masses nor adenopathy in the neck. Visualized airway is patent. IMPRESSION: 1. Patent carotid and vertebral arteries in the neck. No evidence of injuries to these vessels in t his patient who has bilateral upper rib fractures and a small left pneumothorax as well as dislocatio n of the left AC joint. 2. No significant incidental findings in the soft tissues of the neck. RADIATION DOSE DELIVERED: 287.69mGy.cm Total DLP DATA REPOSITORY: All CT scans at this facility are submitted to the National Radiology Data Registry (NRDR) Dose Index Registry (DIR) with the [employer] ([employer]). RADIATION OPTIMIZATION: All CT scans at this facility use at least one of these dose optimization te chniques: automated exposure control; mA and/or kV adjustment per patient size (includes targeted exa ms where dose is matched to clinical indication); or iterative reconstruction.
[2023-06-26] MEDS: HYDROmorphone 2 MG/ML SYR 0.5 MG IVP (00:17)
[2023-06-26] MEDS: Ibuprofen 600 MG TAB PO (00:18)
[2023-06-26] MEDS: Acetaminophen 500 MG TAB 1000 MG PO ×4 (00:18→19:54)
[2023-06-26] MEDS: clonazePAM 0.5 MG TAB 1 MG PO (00:18)
[2023-06-26] MEDS: Omnipaque 350 MG/ML 100 ML BTL IJ (00:31)
[2023-06-26] MEDS: Normal Saline - Diluent 50 ML VIAL IJ (00:32)
[2023-06-26] MEDS: Normal Saline Flush 10 ML SYR IVP ×5 (00:33→19:54)
[2023-06-26 00:36] LABS: Bilirubin Negative (Negative); Blood Trace-intact (Negative); Clarity Clear (Clear); Glucose Negative (Negative); Ketones Negative (Negative); Leukocyte Esterase Negative (Negative); Nitrite Negative (Negative); Urobilinogen 0.2 mg/dL (Up to 0.2); pH 5.5 (5-8)
[2023-06-26 00:37] LABS: *AMPHETAMINES SCREEN URINE Negative (Negative); *BARBITURATES SCREEN URINE Negative (Negative); *BENZODIAZEPINES SCREEN URINE Negative (Negative); Cannabinoids THC Negative (Negative); Cocaine Screen,Urine Negative (Negative); METHADONE URINE SCREEN Negative (Negative); OPIATES URINE SCREEN Negative (Negative)
[2023-06-26 00:48] LABS: Tricyclic Antidepressants Negative (Negative)
[2023-06-26 00:49] LABS: Bacteria Rare HPF (Negative); C & S Indicated? No; Crystals Negative HPF (Negative); Epithelial Cells Rare HPF (Negative); Mucus Negative (Negative); RBC 0-2 HPF (0-2); WBC 0-2 HPF (0-5)
--- NOTE | 2023-06-26 01:04 | DI.VRAD_ITS ---
PROCEDURE INFORMATION: Exam: CTA Neck With Contrast Exam date and time: 06/26/2023 12:29 AM Age: 62 years old Clinical indication: Injury or trauma; Fall; Blunt trauma; Neck; Injury date: 06/25/23; Injury details: Upper rib fracture concerning for bcvi TECHNIQUE: Imaging protocol: Computed tomographic angiography of the neck with contrast. Exam focused on the cervical segments of the vasculature. 3D rendering (Not supervised by radiologist): MIP and/or 3D reconstructed images were created by the technologist. Radiation optimization: All CT scans at this facility use at least one of these dose optimization techniques: automated exposure control; mA and/or kV adjustment per patient size (includes targeted exams where dose is matched to clinical indication); or iterative reconstruction. Contrast material: OMNIPAQUE 350; Contrast volume: 85 ml; Contrast route: INTRAVENOUS (IV); COMPARISON: CT HEAD CERVICAL SPINE WO 06/25/2023 9:[address] chest, abdomen, and pelvis dated 06/25/2023 FINDINGS: Right common carotid artery: No stenosis. No dissection or occlusion. Right internal carotid artery: No stenosis of the extracranial segment. No dissection or occlusion. Right external carotid artery: No occlusion or stenosis of the origin. Left common carotid artery: No stenosis. No dissection or occlusion. Left internal carotid artery: No stenosis of the extracranial segment. No dissection or occlusion. Left external carotid artery: No occlusion or stenosis of the origin. Right vertebral artery: No stenosis. No dissection or occlusion. Left vertebral artery: No stenosis. No dissection or occlusion. Aorta: Minimal atherosclerotic disease of the visualized thoracic aortic arch, without aneurysm or dissection. Conventional thoracic aortic arch great vessel branch anatomy. Soft tissues: Fat stranding within the left axilla and left infraclavicular regions, likely minimal hemorrhage related to left AC joint injury and left 2nd rib fracture. Bones/joints: Acute, mildly displaced left posterior 1st and 2nd rib fractures. Acute, mildly displaced right posterolateral 1st rib fracture. Acute, mildly displaced left T2 transverse process fracture. Small left apical extrapleural hematoma related to rib fracture. Acute, minimally displaced left anterior 2nd rib fracture. Minimal glass focus within the periphery of the anterior left upper lobe, likely minimal pulmonary contusion related to left anterior 2nd rib fracture. Pleural spaces: Tiny left anteromedial apical pneumothorax, similar to comparison studies. Small left pleural effusion. IMPRESSION: 1. No extracranial arterial significant stenosis or occlusion. 2. No evidence of acute arterial or venous injury. 3. Small left pleural effusion. 4. Acute, mildly displaced left posterior 1st and 2nd rib fractures. 5. Acute, mildly displaced right posterolateral 1st rib fracture. 6. Acute, mildly displaced left T2 transverse process fracture. 7. Small left apical extrapleural hematoma related to rib fracture. 8. Fat stranding within the left axilla and left infraclavicular regions, likely minimal hemorrhage related to left AC joint injury and left 2nd rib fracture. 9. Acute, minimally displaced left anterior 2nd rib fracture. 10. Minimal glass focus within the periphery of the anterior left upper lobe, likely minimal pulmonary contusion related to left anterior 2nd rib fracture. REFERENCES: NASCET CRITERIA. The degree of stenosis in the cervical segment of the internal carotid artery is based on NASCET criteria. Normal is no stenosis. Mild is less than 50% stenosis. Moderate is 50-69% stenosis. Severe is 70% to 99% stenosis. Total occlusion is no detectable patent lumen. Dictated and Authenticated by: Ha Denton MD. Ordering:CHAN Tsai MD
[2023-06-26] MEDS: HYDROmorphone 2 MG/ML SYR (05:14)
--- NOTE | 2023-06-26 05:55 | OCONE_ITS ---
History of Present Illness History of Present Illness Chief Complaint: Neck and Left Shoulder Pain Narrative: Ms. Larsen is a 62-year-old [id number] female who is hospitalized following a fall downstairs last evening; her Jerrod is in the room. She reports helping her move a mattress down the stairs, the top of the mattress was too high and she jumped onto it. Unfortunately, the mattress bounced and caused her to fall over the edge of the stairs. Following the injury she presented to the ER. Due to left shoulder pain she underwent x-rays revealing left AC separation, T2 process fracture as well as posterior rib fractures. She reports initially being fitted with a stiff cervical collar which has been removed. Has continued to wear a sling and have the arm gently supported via pillows. Reports discomfort along her left shoulder, scapula and spine. She reports slight discomfort along her left anterior chest wall. Denies any numbness or tingling. Consult Reason Left AC joint separation; rib fractures Assessment and Plan Assessment and plan (1) Separation of left acromioclavicular joint: Status: Acute (2) Multiple fractures of ribs of left side: Status: Acute (3) Closed fracture of transverse process of thoracic vertebra: Status: Acute (4) Right rib fracture: Status: Acute Assessment and plan: Plan: Ms. Larsen is a 62-year-old [id number] female who is hospitalized following a fall downstairs last evening; her Jerrod is in the room. Reviewed ER notes in detail which included discussion with [facility] [place]. Educated patient and her on imaging findings which revealed left AC separation, left T2 process fracture as well as mildly displaced posterior rib fractures of left 1st and 2nd ribs as well as right 1st rib. Educated patient on AC joint separation including recommend conservative management but may have stiffness and deformity noted. Recommend patient wear soft cervical collar for comfort. She will wear sling for comfort. Recommend patient avoid heavy lifting and be cautious with activity involving the left arm including limiting motion to below shoulder height. She does report decreased sensation along her left thumb and index fingers compared to other fingers on the left hand, however sensation is noted and motor function is intact. She does deny any numbness or tingling. Educated symptoms may be due to arm positioning and swelling. Will continue to assess at follow- up. Patient does have previous history of right adhesive capsulitis so stressed will work on early ROM for her left shoulder based on follow-up. Discussed option for PT referral if needed in the future. They had opportunity to have questions answered to their satisfaction. They are agreeable to orthopedic treatment plan. Will contact our office if issues arise - will plan to follow-up in orthopedic clinic in 2-4 weeks for repeat examination. Review of Systems Cardiovascular Cardiovascular: Denies chest pain and Denies dyspnea Comments: Reports discomfort along left side of spine extending anteriorly Respiratory Respiratory: Denies pain on inspiration and Denies dyspnea PFSH All Active Problems (Updated 06/29/23 @ 00:04 by CHIDI LIND) Constipation (Chronic) Right rib fracture (Acute) Posterolateral right 1st rib fracture Separation of left acromioclavicular joint (Acute 06/25/23) Pleural effusion, left (Acute) Left pulmonary contusion (Acute) Closed fracture of transverse process of thoracic vertebra (Acute) Left T2 Multiple fractures of ribs of left side (Acute) Left posterior fractures of 1 and 2 Pneumothorax, left (Acute) Adhesive capsulitis of right shoulder (Acute) Interstitial cystitis (Acute) Medical History Hx of syncope Rotator cuff syndrome of left shoulder Hx of adenomatous polyp of colon Right shoulder pain Tension headache Facial pain, atypical Anxiety with depression Seborrheic dermatitis Memory impairment Frequent falls Family history of heart disease Food allergy Cough Cystitis Dry eyes Adenomatous colon polyp [place] positive Hyperparathyroidism Hypercalcemia Anxiety and depression Pneumonia Ceruminosis Fatigue Hearing loss Anemia, iron deficiency Hypothyroidism Seizure disorder Syncope Chronic constipation Paresthesias Vertigo Dizziness Grief reaction Abnormal uterine bleeding Headache Rotator cuff syndrome Left elbow pain Hair loss Pain, joint, shoulder, right Anxiety Abdominal pain Surgical History Tubal Ligation, Colonoscopy - [facility] (04/18/17) Family History Mother Breast cancer COPD (chronic obstructive pulmonary disease) Father Valvular heart disease at 77 Bladder cancer Social History Smoking/Tobacco Use Status: Never Smoking risk assessment performed?: Yes Alcohol Intake: current Alcohol Intake frequency: holidays/special occasions only Drug use: Never Substance use type: does not use Housing: house Do you feel safe at home: Yes Do you feel safe in your relationship?: Yes Exam Const General: cooperative, comfortable and no acute distress Resp Effort & Inspection: normal respiratory effort, able to speak in complete sentences and respiratory effort not decreased Extrem Other: Left upper extremity examination: Skin is intact - there is slight ecchymosis noted along the scapula. There is moderate edema noted along the AC joint - slight prominence is noted compared to contralateral side. No significant signs of abrasions are noted along upper extremity or spine. Sensation to light touch is intact along radial, ulnar and axillary nerve distributions - reports sensation along median nerve distribution is slightly decreased. Motor function of median, ulnar and radial nerves is intact. She is able to demonstrate full wrist and elbow ROM. She is able to demonstrate shoulder abduction and slight flexion while moving from supine to upright positioning. No isolated tenderness to palpation along the scapula. No tenderness to palpation along anterior shoulder joint. She tolerates gentle shoulder motion by provider while removing/applying the sling. Throughout visit patient gently rotates her neck without discomfort. Results Last Vital Signs Temp 36.2 C L 06/25/23 19:37 Pulse 70 06/26/23 05:11 Resp 13 06/26/23 05:12 BP 134/58 L 06/26/23 05:11 Pulse Ox 97 06/26/23 05:11 Labs 06/26/23 07:25 06/25/23 20:30 Labs: Laboratory Results - last 24 hr 06/25/23 06/25/23 06/26/23 20:30 20:50 00:06 WBC 14.58 H RBC 4.77 Hgb 13.7 Hct 41.2 MCV 86 MCH 28.7 MCHC 33.3 RDW 12.8 Plt Count 377 MPV 8.5 Immature Gran % 0.5 Neutrophils % 77.5 Lymphocytes % 16.2 Monocytes % 4.9 Eosinophils % 0.5 Basophils % 0.4 Nucleated RBC % 0.0 Absolute Neutrophils 11.30 H Absolute Lymphocytes 2.36 Absolute Monocytes 0.71 Absolute Eosinophils 0.07 Absolute Basophils 0.06 VBG pH 7.43 H VBG pCO2 34 L VBG pO2 55 VBG HCO3 22 L VBG Total CO2 20 L VBG O2 Saturation 90 VBG Base Excess -2 VBG Lactate 2.8 H* Sodium 139 Potassium 3.0 L Chloride 104 Carbon Dioxide 21.1 Anion Gap 13.9 H BUN 18 Creatinine 1.1 H Est GFR (CKD-EPI 2020) 57.52 Glucose 145 H Calcium 10.4 H Total Bilirubin 0.5 AST 31 ALT 36 Alkaline Phosphatase 45 L Troponin I < 50 Total Protein 7.8 Albumin 4.0 Urine Color Yellow Urine Clarity Clear Urine pH 5.5 Ur Specific [place] 1.010 Urine Protein Negative Urine Ketones Negative Urine Blood Trace-intact H Urine Nitrite Negative Urine Bilirubin Negative Urine Urobilinogen 0.2 Ur Leukocyte Esterase Negative Urine RBC 0-2 Urine WBC 0-2 Ur Epithelial Cells Rare Urine Crystals Negative Urine Bacteria Rare Urine Mucus Negative Ur Culture Indicated? No Urine Glucose Negative Urine Opiates Screen Negative Urine Methadone Screen Negative Ur Barbiturates Screen Negative Ur Tricyclics Screen Negative Ur Amphetamines Screen Negative U Benzodiazepines Scrn Negative Urine Cocaine Screen Negative Ur THC Screen Negative Ethyl Alcohol < 3.0 Patient ABO/Rh O Positive Antibody Screen NEGATIVE Imaging Imaging Studies: Reviewed previously obtained CT scan of the thoracic and lumbar spine which as per Dr. Alfaro read states the following impression: 1. Acute mildly displaced fractures of the posterior aspect of the left 1st and 2nd ribs. Also minimally displaced left T2 transverse process fracture. Also small left apical hematoma and tiny left pneumothorax, estimated at less than 5 percent. 2. Acute mildly displaced fracture of the posterolateral right 1st rib. 3. No fractures of the lumbosacral spine Reviewed previously obtained left shoulder x-rays which reveal AC joint separation; glenohumeral joint is well maintained and aligned. Humeral head does not appear to be high riding. No signs of obvious fracture noted on shoulder x- ray images.
--- NOTE | 2023-06-26 06:31 | HPE_ITS ---
Date of service: 06/26/23 Time of Service: 06:31 Assessment and Plan Assessment and plan (1) Closed fracture of transverse process of thoracic vertebra: Status: Acute (2) Multiple fractures of ribs of left side: Status: Acute Assessment and plan: - I did discuss with the patient and her family that although her injuries are painful, she does not require surgery and should do well with conservative medical management. At this time we will continue with a program of managing her swelling and acute inflammation with anti-inflammatories/bracing and ice/the multimodality pain management program -We discussed doing nerve blocks by anesthesia. I strongly encouraged her to do this, As this will aid in respiratory effort and prevent subsequent pneumonias. -We stressed the importance of pulmonary toilet and early mobilization. -Physical therapy will work with her tomorrow. And make sure that she is able to go home and do her activities of daily living. -She will follow-up in general surgery clinic. We will get her connected with physical therapy on outpatient basis. -We will have her follow-up with orthopedics. She has had issues with rotator cuff injuries in the past and adhesive capsulitis. This accident has the potential to exacerbate this. -Continue supportive care -Chest x-ray in a.m. -I did personally review all her CT scans and lab work. I did review her case with the ER and with orthopedics as well 60 mins spent with the patient today. (3) Pneumothorax, left: Status: Acute (4) Anosmia: Status: Acute (5) Asymmetrical sensorineural hearing loss: Status: Acute (6) Adhesive capsulitis of right shoulder: Status: Acute Assessment and plan: Chronic from prior injury (7) Vaginal atrophy: Status: Acute (8) Tendinopathy of right biceps tendon: Status: Acute (9) Left pulmonary contusion: Status: Acute (10) Pleural effusion, left: Status: Acute (11) Rotator cuff syndrome of left shoulder: Assessment and plan: -chronic and pre-injury (12) Hyperparathyroidism: (13) Hypothyroidism: (14) Separation of left acromioclavicular joint: Status: Acute Assessment and plan: Per orthopedic consult: Educated patient on AC joint separation including recommend conservative management but may have stiffness and deformity noted. Recommend patient wear soft cervical collar for comfort. She will wear sling for comfort. Recommend patient avoid heavy lifting and be cautious with activity involving the left arm including limiting motion to below shoulder height. She does report decreased sensation along her left thumb and index fingers compared to other fingers on the left hand, however sensation is noted and motor function is intact. She does deny any numbness or tingling. Educated symptoms may be due to arm positioning and swelling. Will continue to assess at follow- up. Patient does have previous history of right adhesive capsulitis so stressed will work on early ROM for her left shoulder based on follow-up. Discussed option for PT referral if needed in the future. They had opportunity to have questions answered to their satisfaction. They are agreeable to orthopedic treatment plan. Will contact our office if issues arise - will plan to follow-up in orthopedic clinic in 2-4 weeks for repeat examination. (15) Right rib fracture: Status: Acute History of Present Illness Narrative: From ED provider: This is a 62-year-old female with history of anxiety arriving to the emergency department via private vehicle after falling down a flight of stairs. Patient is not sure whether or not she lost consciousness. She has pain in her left shoulder and left chest. She feels anxious. She has been ambulatory since her fall. She does not take any blood thinners. She feels short of breath and also has pain in her back. She was trying to get a mattress down a flight of stairs when the mattress began slipping and she jumped on top of the mattress. She had a railing and fell approximately 7 feet to the floor. On my interview with the patient today: This evening patient is complaining of muscle spasm and pain in the left side of her neck. She is currently A& O x 3. she denies any changes in vision. She does have a mild headache but she has not eaten anything today. She denies any dizziness. She notes no further worsening of her previous hearing loss. She is hungry. She denies any nausea or vomiting. She has no numbness or tingling in her hands or feet. She does have palpable chest and back pain consistent with fractures visualized on CT. She does not have any subcutaneous crepitus. She denies any abdnominal pain. She is able to take in a deep breath. She has not had a cough or productive sputum or hemoptysis. She has been able to get up with the assistance of nursing and go to the bathroom. She does have control of bowels and bladder. Review of Systems All systems reviewed & are unremarkable except as noted in HPI and below PFSH All Active Problems Right rib fracture (Acute) Posterolateral right 1st rib fracture Separation of left acromioclavicular joint (Acute 06/25/23) Pleural effusion, left (Acute) Left pulmonary contusion (Acute) Closed fracture of transverse process of thoracic vertebra (Acute) Left T2 Multiple fractures of ribs of left side (Acute) Left posterior fractures of 1 and 2 Pneumothorax, left (Acute) Anosmia (Acute) Asymmetrical sensorineural hearing loss (Acute) Adhesive capsulitis of right shoulder (Acute) Tendinopathy of right biceps tendon (Acute) Vaginal atrophy (Acute) Interstitial cystitis (Acute) Medical History Hx of syncope Rotator cuff syndrome of left shoulder Hx of adenomatous polyp of colon Right shoulder pain Tension headache Facial pain, atypical Anxiety with depression Seborrheic dermatitis Memory impairment Frequent falls Family history of heart disease Food allergy Cough Cystitis Dry eyes Adenomatous colon polyp [place] positive Hyperparathyroidism Hypercalcemia Anxiety and depression Pneumonia Ceruminosis Fatigue Hearing loss Anemia, iron deficiency Hypothyroidism Seizure disorder Syncope Chronic constipation Paresthesias Vertigo Dizziness Grief reaction Abnormal uterine bleeding Headache Rotator cuff syndrome Left elbow pain Hair loss Pain, joint, shoulder, right Anxiety Abdominal pain Surgical History Tubal Ligation, Colonoscopy - MAC (04/18/17) Family History Mother Breast cancer COPD (chronic obstructive pulmonary disease) Father Valvular heart disease at 77 Bladder cancer Social History Smoking/Tobacco Use Status: Never Smoking risk assessment performed?: Yes Alcohol Intake: current Alcohol Intake frequency: holidays/special occasions only Drug use: Never Substance use type: does not use Housing: house Do you feel safe at home: Yes Do you feel safe in your relationship?: Yes Meds Allergies and Home Medications Allergies Allergy/AdvReac Type Severity Reaction Status Date / Time gluten Allergy Intermediate Verified 06/25/23 19:39 erythromycin base AdvReac Intermediate Nausea Verified 06/25/23 19:39 iron AdvReac Intermediate Nausea Verified 06/25/23 19:39 Penicillins AdvReac Intermediate flu Verified 06/25/23 19:39 symptoms Sulfa (Sulfonamide AdvReac Intermediate chest Verified 06/25/23 19:39 Antibiotics) feels on fire Home Medications Medication Instructions Recorded Confirmed Type albuterol sulfate 90 mcg/actuation 2 puff inhalation Q6H PRN 01/04/15 06/25/23 History aerosol inhaler clonazepam 1 mg tablet (Klonopin) 1 mg PO BID 05/13/19 06/25/23 History albuterol sulfate 90 mcg/actuation 1 puff inhalation Q6H PRN 11/08/21 06/25/23 History aerosol inhaler (ProAir HFA) fluticasone propionate 50 2 spray intranasal BID 11/08/21 06/25/23 History mcg/actuation nasal spray,suspension levothyroxine 50 mcg capsule 50 mcg PO DAILY 11/08/21 06/25/23 History polyethylene glycol 3350 17 17 g PO DAILY 11/08/21 06/25/23 History gram/dose oral powder (Miralax) sertraline 100 mg tablet 100 mg PO DAILY 04/24/23 06/25/23 History sertraline 50 mg tablet 50 mg PO DAILY 06/26/23 06/26/23 History Exam Narrative Exam Narrative: PHYSICAL EXAM GENERAL APPEARANCE: Alert, healthy appearance, oriented, x 3,? in no mild pain HEAD, EYES, EARS, NECK, THROAT: Head is normocephalic, pupils equal, round, reactive to light and accommodation, ocular movement intact, sclera clear and no jaundice. ?Dentition intact. No jaw pain. mild area of echymosis left T-P area. NECK: Trachea midline.? Neck supple.? No JVD LUNGS: normal respiration/normal chest excursion. ?Clear to auscultation bilaterally. ?No subcutaneous emphysema. Tenderness to palpation upper chest wall bilaterally. ?HEART: Regular rate and rhythm. no murmurs EXTREMITY: No edema or cyanosis.? no leg pain, redness, swelling.? No numbness or tingling in bilateral upper and lower extremities. Radial pulses and dorsalis pedis pulses are 2 / 2 ABDOMEN: soft and non-tender to palpation.? Normal bowel sounds.? Results Labs 06/26/23 07:25 06/25/23 20:30 Labs: Laboratory Results - last 24 hr 06/25/23 06/25/23 06/26/23 20:30 20:50 00:06 WBC 14.58 H RBC 4.77 Hgb 13.7 Hct 41.2 MCV 86 MCH 28.7 MCHC 33.3 RDW 12.8 Plt Count 377 MPV 8.5 Immature Gran % 0.5 Neutrophils % 77.5 Lymphocytes % 16.2 Monocytes % 4.9 Eosinophils % 0.5 Basophils % 0.4 Nucleated RBC % 0.0 Absolute Neutrophils 11.30 H Absolute Lymphocytes 2.36 Absolute Monocytes 0.71 Absolute Eosinophils 0.07 Absolute Basophils 0.06 VBG pH 7.43 H VBG pCO2 34 L VBG pO2 55 VBG HCO3 22 L VBG Total CO2 20 L VBG O2 Saturation 90 VBG Base Excess -2 VBG Lactate 2.8 H* Sodium 139 Potassium 3.0 L Chloride 104 Carbon Dioxide 21.1 Anion Gap 13.9 H BUN 18 Creatinine 1.1 H Est GFR (CKD-EPI 2020) 57.52 Glucose 145 H Calcium 10.4 H Total Bilirubin 0.5 AST 31 ALT 36 Alkaline Phosphatase 45 L Troponin I < 50 Total Protein 7.8 Albumin 4.0 Urine Color Yellow Urine Clarity Clear Urine pH 5.5 Ur Specific [place] 1.010 Urine Protein Negative Urine Ketones Negative Urine Blood Trace-intact H Urine Nitrite Negative Urine Bilirubin Negative Urine Urobilinogen 0.2 Ur Leukocyte Esterase Negative Urine RBC 0-2 Urine WBC 0-2 Ur Epithelial Cells Rare Urine Crystals Negative Urine Bacteria Rare Urine Mucus Negative Ur Culture Indicated? No Urine Glucose Negative Urine Opiates Screen Negative Urine Methadone Screen Negative Ur Barbiturates Screen Negative Ur Tricyclics Screen Negative Ur Amphetamines Screen Negative U Benzodiazepines Scrn Negative Urine Cocaine Screen Negative Ur THC Screen Negative Ethyl Alcohol < 3.0 Patient ABO/Rh O Positive Antibody Screen NEGATIVE Last Vital Signs Temp 36.2 C L 06/25/23 19:37 Pulse 70 06/26/23 05:11 Resp 13 06/26/23 05:12 BP 134/58 L 06/26/23 05:11 Pulse Ox 97 06/26/23 05:11 Anemia profile 2 Hgb 11.6 g/dL (11.2-15.7) 06/26/23 Hct 35.7 % (36.0-46.0) L 06/26/23 MCV 89 fL (80-95) 06/26/23 RDW 13.1 % (11.7-14.6) 06/26/23 Vitamin B12 607 pg/mL (193-986) 07/08/20 Basic Metabolic 2 Sodium 139 mmol/L (136-145) 06/25/23 Potassium 3.0 mmol/L (3.5-5.1) L 06/25/23 Chloride 104 mmol/L (98-107) 06/25/23 Carbon Dioxide 21.1 mmol/L (21.0-32.0) 06/25/23 BUN 18 mg/dL (7-18) 06/25/23 Creatinine 1.1 mg/dL (0.55-1.02) H 06/25/23 Estimated GFR/1.73 m2 56.75 (mL/min/1.73m2) 10/28/21 Glucose 145 mg/dL (74-106) H 06/25/23 CBC 2 White Blood Count 9.04 10^3/uL (4.4-10.8) 06/26/23 Red Blood Count 4.03 10^6/uL (3.93-5.22) 06/26/23 Hemoglobin 11.6 g/dL (11.2-15.7) 06/26/23 Hematocrit 35.7 % (36.0-46.0) L 06/26/23 Mean Corpuscular Volume 89 fL (80-95) 06/26/23 Mean Corpuscular Hemoglobin 28.8 pg (27.0-33.0) 06/26/23 Mean Corpuscular Hemoglobin Concent 32.5 % (32.0-36.0) 03/11 Red Cell Distribution Width 13.1 % (11.7-14.6) 06/26/23 Platelet Count 271 10^3/uL (130-400) 06/26/23 Mean Platelet Volume 8.5 fL (8.0-11.0) 06/26/23 Neutrophils % 63.1 06/26/23 Lymphocytes % 27.3 06/26/23 Monocytes % 8.7 06/26/23 Eosinophils % 0.3 06/26/23 Basophils % 0.3 06/26/23 Immature Granulocytes % 0.3 06/26/23 Comprehensive Metabolic Panel 2 Sodium 139 mmol/L (136-145) 06/25/23 20:30 Potassium 3.0 mmol/L (3.5-5.1) L 06/25/23 20:30 Chloride 104 mmol/L (98-107) 06/25/23 20:30 Carbon Dioxide 21.1 mmol/L (21.0-32.0) 06/25/23 20:30 BUN 18 mg/dL (7-18) 06/25/23 20:30 Creatinine 1.1 mg/dL (0.55-1.02) H 06/25/23 20:30 Estimated GFR/1.73 m2 56.75 (mL/min/1.73m2) 10/28/21 16:30 Glucose 145 mg/dL (74-106) H 06/25/23 20:30 Calcium 10.4 mg/dL (8.5-10.1) H 06/25/23 20:30 Total Bilirubin 0.5 mg/dL (0.2-1.0) 06/25/23 20:30 ALT 36 U/L (14-59) 06/25/23 20:30 AST 31 U/L (15-37) 06/25/23 20:30 Alkaline Phosphatase 45 U/L (46-116) L 06/25/23 20:30 Total Protein 7.8 g/dL (6.4-8.2) 06/25/23 20:30 Albumin 4.0 g/dL (3.4-5.0) 06/25/23 20:30 Diabetes results 2 Glucose 145 mg/dL (74-106) H 06/25/23 Total Cholesterol 280 mg/dL (<200) H 01/22/23 LDL Cholesterol, Calc 196 mg/dL (<100) H 01/22/23 LDL Cholesterol Direct 148 mg/dL 08/05/15 HDL Cholesterol 55 mg/dL (40-60) 01/22/23 Triglycerides 148 mg/dL (<150) 01/22/23 BUN 18 mg/dL (7-18) 06/25/23 Creatinine 1.1 mg/dL (0.55-1.02) H 06/25/23 Estimated GFR/1.73 m2 56.75 (mL/min/1.73m2) 10/28/21 Est GFR (CKD-EPI 2020) 57.52 (mL/min/1.73m2) 06/25/23 Sodium 139 mmol/L (136-145) 06/25/23 Potassium 3.0 mmol/L (3.5-5.1) L 06/25/23 Chloride 104 mmol/L (98-107) 06/25/23 Carbon Dioxide 21.1 mmol/L (21.0-32.0) 06/25/23 Calcium 10.4 mg/dL (8.5-10.1) H 06/25/23 AST 31 U/L (15-37) 06/25/23 ALT 36 U/L (14-59) 06/25/23 Total Protein 7.8 g/dL (6.4-8.2) 06/25/23 Albumin 4.0 g/dL (3.4-5.0) 06/25/23 TSH 2.41 uIU/mL (0.36-3.74) 01/22/23 Vitamin B12 607 pg/mL (193-986) 07/08/20 Time Spent Time spent with Patient: 55-74 minutes Time was spent: preparing to see the patient(eg.review tests), obtaining and/or reviewing separately otained hiistory, ordering medications,tests, procedures, referring, communicating with other health healthcare insurance sales agent, indepentently interpreting results, counseling the patient and care coordination
[2023-06-26 07:28] LABS: Abs Immature Grans 0.03 10^3/uL (0.0-0.06); Absolute Basophil Count 0.03 10^3/uL (0.0-0.2); Absolute Eosinophil Count 0.03 10^3/uL (0.0-0.7); Absolute Lymphocyte Count 2.47 10^3/uL (1.2-3.4); Absolute Monocyte Count 0.79 10^3/uL (0.1-0.8); Absolute Neutrophil Count 5.69 10^3/uL (1.2-6.7); Basophils % 0.3; Eosinophils % 0.3; HCT 35.7 % (36.0-46.0); HGB 11.6 g/dL (11.2-15.7); Immature Grans % 0.3; Lymphocytes % 27.3; MCH 28.8 pg (27.0-33.0); MCHC 32.5 % (32.0-36.0); MCV 89 fL (80-95); MPV 8.5 fL (8.0-11.0); Monocytes % 8.7; Neutrophils % 63.1; Platelet Count 271 10^3/uL (130-400); RBC 4.03 10^6/uL (3.93-5.22); RDW 13.1 % (11.7-14.6); RDW-SD 42.6 fL; WBC 9.04 10^3/uL (4.4-10.8)
[2023-06-26 07:40] LABS: Lipase 35 U/L (16-77)
[2023-06-26] MEDS: Ketorolac 15 MG/ML VIAL IVP ×3 (08:34→19:54)
[2023-06-26] MEDS: Normal Saline 1,000 ML 75 ML IV ×2 (08:34→21:48)
[2023-06-26] MEDS: Enoxaparin 40 MG/0.4 ML SYR SC (08:35)
[2023-06-26] MEDS: Polyethylene Glycol 3350 17 GM PACKET PO (09:15)
[2023-06-26] MEDS: Levothyroxine 50 MCG TAB PO (09:15)
--- NOTE | 2023-06-26 09:55 | INITIAL_ITS ---
Date of service: 06/26/23 Time of Service: 09:55 Care Management Initial Assmt Initial Assessment REASON FOR HOSPITALIZATION:: fractured clavicle, ribs, thoracic vertebra, pneumothorax PREVIOUS FUNCTIONAL STATUS/SOCIAL/FAMILY SUPPORTS:: Katia lives in [place] with her Jerrod. They have a son and a daughter who live near them who are very supportive. Katia confirmed that they are a very close family. Katia is not currently employed and is independent at baseline. CURRENT FUNCTIONAL STATUS:: Katia was lying in bed visiting with her Jerrod and daughter Lexi when CM met with her. She stated that she is not having too much pain at the moment. She informed CM that she actually has less pain when she gets up than she does when lying in bed. Scheduled IV Ketorolac and PO Tylenol have helped keep the pain controlled. Katia had been kept NPO all day but now has an order for dinner. ADVANCE DIRECTIVES:: none Has patient been provided with info about the portal/API?: Yes Did the patient sign up for the portal?: Yes CODE STATUS:: Full Code INSURANCE COVERAGE / FINANCIAL ISSUES:: BC/BS CURRENT HOME/COMMUNITY SERVICES/EQUIPMENT:: none PRIMARY CARE PHYSICIAN:: Berta Winchester POTENTIAL DISCHARGE NEEDS:: follow up with surgeon, PCP and plan of care PATIENT/FAMILY EDUCATION NEEDS:: Review of discharge instructions, activity, limitations, follow up plan, discuss Ask Me Three TRANSPORTATION:: via private vehicle with PLAN:: Anticipate Katia will be discharged home with no new services. She will follow up with her surgeon, PCP and plan of care and transport with family. CM will follow and address discharge concerns. [facility] All Active Problems (Updated 06/26/23 @ 14:11 by Evette Stock) Right rib fracture (Acute) Posterolateral right 1st rib fracture Separation of left acromioclavicular joint (Acute 06/25/23) Pleural effusion, left (Acute) Left pulmonary contusion (Acute) Closed fracture of transverse process of thoracic vertebra (Acute) Left T2 Multiple fractures of ribs of left side (Acute) Left posterior fractures of 1 and 2 Pneumothorax, left (Acute) Anosmia (Acute) Asymmetrical sensorineural hearing loss (Acute) Adhesive capsulitis of right shoulder (Acute) Tendinopathy of right biceps tendon (Acute) Vaginal atrophy (Acute) Interstitial cystitis (Acute) Medical History (Updated 06/26/23 @ 14:11 by Evette Stock) Hx of syncope Rotator cuff syndrome of left shoulder Hx of adenomatous polyp of colon Right shoulder pain Tension headache Facial pain, atypical Anxiety with depression Seborrheic dermatitis Memory impairment Frequent falls Family history of heart disease Food allergy Cough Cystitis Dry eyes Adenomatous colon polyp [place] positive Hyperparathyroidism Hypercalcemia Anxiety and depression Pneumonia Ceruminosis Fatigue Hearing loss Anemia, iron deficiency Hypothyroidism Seizure disorder Syncope Chronic constipation Paresthesias Vertigo Dizziness Grief reaction Abnormal uterine bleeding Headache Rotator cuff syndrome Left elbow pain Hair loss Pain, joint, shoulder, right Anxiety Abdominal pain Surgical History Tubal Ligation, Colonoscopy - MAC (04/18/17) Family History Mother Breast cancer COPD (chronic obstructive pulmonary disease) Father Valvular heart disease at 77 Bladder cancer Social History Smoking/Tobacco Use Status: Never Smoking risk assessment performed?: Yes Alcohol Intake: current Alcohol Intake frequency: holidays/special occasions only Drug use: Never Substance use type: does not use Housing: house Do you feel safe at home: Yes Do you feel safe in your relationship?: Yes SDOH(Care Management) Screening Will the Patient Participate in the Screening?: Unable to obtain
--- NOTE | 2023-06-26 11:24 | W.ANESCON ---
General Date of Service Date of Service: 06/26/23 Reason for Consult Requesting Provider: Evette Gaines How Consult Conducted:: Chart Review (Seen as inpatient) Reason for Consult:: Erector Spinae Nerve block for bilateral rib fractures Consult Recommendation after Review:: Discussed bilateral erector spinae blocks with patient. She has had a nerve block in the past that worked well for her shoulder. Today, she is in bed in no apparent distress, states pain is 4-5/10. She is unclear whether her pain is from her spine fracture or her ribs. After discussion of risks and benefits, she is going to wait and see how she does today. If she feels her discomfort is her ribs, then she will request the nerve block at a later time. Discussed that ribs #1 may be difficult to cover depending on variability of block solution. Height: 5 ft 4 in Weight: 58.967 kg Body Mass Index (BMI): 22.3 Meds Allergies and Home Medications Allergies Allergy/AdvReac Type Severity Reaction Status Date / Time gluten Allergy Intermediate Verified 06/25/23 19:39 erythromycin base AdvReac Intermediate Nausea Verified 06/25/23 19:39 iron AdvReac Intermediate Nausea Verified 06/25/23 19:39 Penicillins AdvReac Intermediate flu Verified 06/25/23 19:39 symptoms Sulfa (Sulfonamide AdvReac Intermediate chest Verified 06/25/23 19:39 Antibiotics) feels on fire Home Medication Medication Instructions Recorded albuterol sulfate 90 mcg/actuation 2 puff inhalation Q6H PRN 01/04/15 aerosol inhaler clonazepam 1 mg tablet (Klonopin) 1 mg PO BID 05/13/19 albuterol sulfate 90 mcg/actuation 1 puff inhalation Q6H PRN 11/08/21 aerosol inhaler (ProAir HFA) fluticasone propionate 50 2 spray intranasal BID 11/08/21 mcg/actuation nasal spray,suspension levothyroxine 50 mcg capsule 50 mcg PO DAILY 11/08/21 polyethylene glycol 3350 17 17 g PO DAILY 11/08/21 gram/dose oral powder (Miralax) sertraline 100 mg tablet 100 mg PO DAILY 04/24/23 Current Visit Medications: Current Medications Generic Name Dose Route Start Last Admin Trade Name Freq PRN Reason Stop Dose Admin Acetaminophen 1,000 mg 06/26/23 08:00 06/26/23 09:15 Acetaminophen 500 Mg Tab PO 1,000 mg Q6H BENEDICT Administration Albuterol Sulfate 2 puff 06/26/23 06:30 Albuterol Hfa 8 Gm 60 Puff Inh IH Q6H PRN PRN Device 1 each 06/26/23 07:00 Inhaler, Assist Device MC DIRECTED BENEDICT Enoxaparin Sodium 40 mg 06/26/23 08:30 06/26/23 08:35 Enoxaparin 40 Mg/0.4 Ml Syr SC 40 mg Q24H BENEDICT Administration Sodium Chloride 1,000 mls @ 75 mls/hr 06/26/23 08:30 06/26/23 08:34 Saline 1000ml Bag IV 75 mls/hr INFUSION BENEDICT Administration IV Miscellaneous Supplies 1 each 06/26/23 06:30 Iv Access IV DIRECTED [facility] Ketorolac Tromethamine 15 mg 06/26/23 08:00 06/26/23 08:34 Ketorolac 15 Mg/Ml Vial IVP 07/01/23 07:59 15 mg Q6H BENEDICT Administration Levothyroxine Sodium 50 mcg 06/26/23 08:30 06/26/23 09:15 Levothyroxine 50 Mcg Tab PO 50 mcg DAILY@0600 BENEDICT Administration Methocarbamol 750 mg 06/26/23 08:11 Methocarbamol 750 Mg Tab PO QID PRN PRN Morphine Sulfate 2 mg 06/26/23 06:22 Morphine 2 Mg/Ml Syr IVP Q1H PRN PRN Ondansetron HCl 4 mg 06/26/23 06:22 Ondansetron 4 Mg/2 Ml Vial IVP Q4H PRN PRN Polyethylene Glycol 17 gm 06/26/23 08:30 06/26/23 09:15 Polyethylene Glycol 3350 17 Gm Packet PO 17 gm DAILY BENEDICT Administration Sodium Chloride 0 ml 06/26/23 06:22 Normal Saline Flush 10 Ml Syr IVP PRN PRN Sodium Chloride 0 ml 06/26/23 08:30 06/26/23 08:34 Normal Saline Flush 10 Ml Syr IVP 20 ml BID BENEDICT Administration Sodium Chloride 0 ml 06/26/23 06:22 Normal Saline 10 Ml Vial IJ DIRECTED PRN Tramadol HCl 50 mg 06/26/23 06:22 Tramadol 50 Mg Tab PO Q6H PRN PRN Pain PFSH Active Problems Active Problems: Problem Status Onset Code Pleural effusion, left J90 Left pulmonary contusion S27.321A Closed fracture of left clavicle S42.002A Closed fracture of transverse process of thoracic vertebra S22.009A Multiple fractures of ribs of left side S22.42XA Pneumothorax, left J93.9 Anosmia R43.0 Asymmetrical sensorineural hearing loss H90.3 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 Tendinopathy of right biceps tendon M67.921 Vaginal atrophy N95.2 Interstitial cystitis N30.10 Medical History Medical History (Updated 06/26/23 @ 06:32 by Evette Gaines, DO) Hx of syncope Rotator cuff syndrome of left shoulder Hx of adenomatous polyp of colon Right shoulder pain Tension headache Facial pain, atypical Anxiety with depression Seborrheic dermatitis Memory impairment Frequent falls Family history of heart disease Food allergy Cough Cystitis Dry eyes Adenomatous colon polyp [place] positive Hyperparathyroidism Hypercalcemia Anxiety and depression Pneumonia Ceruminosis Fatigue Hearing loss Anemia, iron deficiency Hypothyroidism Seizure disorder Syncope Chronic constipation Paresthesias Vertigo Dizziness Grief reaction Abnormal uterine bleeding Headache Rotator cuff syndrome Left elbow pain Hair loss Pain, joint, shoulder, right Anxiety Abdominal pain Surgical History Surgical History Tubal Ligation, Colonoscopy - [facility] (04/18/17) Tobacco Smoking/Tobacco Use Status: Never Alcohol Alcohol Intake: current Alcohol intake frequency: holidays/special occasions only Substance Use Substance use: Never Substance use type: does not use Vital Signs & Lab Results Vital Signs Most Recent Vital Signs: Most Recent Vital Signs Temp Pulse Resp BP Pulse Ox 36.7 C 74 18 122/75 100 06/26/23 08:40 06/26/23 09:10 06/26/23 08:40 06/26/23 09:10 06/26/23 08:40 Point of Care Results Nursing Point of Care Results: No Data to Display Lab Results 06/26/23 07:25 06/25/23 20:30 Blood Type / Crossmatch: Patient ABO/Rh O Positive 06/25/23 Antibody Screen NEGATIVE 06/25/23 Complete Blood Count: White Blood Count 9.04 10^3/uL (4.4-10.8) 06/26/23 07:25 Red Blood Count 4.03 10^6/uL (3.93-5.22) 06/26/23 07:25 Hemoglobin 11.6 g/dL (11.2-15.7) 06/26/23 07:25 Hematocrit 35.7 % (36.0-46.0) L 06/26/23 07:25 Platelet Count 271 10^3/uL (130-400) 06/26/23 07:25 Venous Blood Lactate 2.8 mmol/L (0.6-1.4) H* 06/25/23 20:50 Complete Metabolic Panel: Sodium 139 mmol/L (136-145) 06/25/23 20:30 Potassium 3.0 mmol/L (3.5-5.1) L 06/25/23 20:30 Chloride 104 mmol/L (98-107) 06/25/23 20:30 Carbon Dioxide 21.1 mmol/L (21.0-32.0) 06/25/23 20:30 BUN 18 mg/dL (7-18) 06/25/23 20:30 Creatinine 1.1 mg/dL (0.55-1.02) H 06/25/23 20:30 Est GFR (CKD-EPI 2020) 57.52 (mL/min/1.73m2) 06/25/23 20:30 Calcium 10.4 mg/dL (8.5-10.1) H 06/25/23 20:30 Albumin 4.0 g/dL (3.4-5.0) 06/25/23 20:30 Glucose 145 mg/dL (74-106) H 06/25/23 20:30 Liver Function Panel: Alanine Aminotransferase (ALT/SGPT) 36 U/L (14-59) 06/25/23 20:30 Aspartate Amino Transf (AST/SGOT) 31 U/L (15-37) 06/25/23 20:30 Coagulation Panel: No Data to Display Cardiac Panel: Troponin I < 50 ng/L (<or=60) 06/25/23 Arterial Blood Gas: No Data to Display Venous Blood Gas: Venous Blood pH 7.43 (7.31-7.41) H 06/25/23 20:50 Venous Blood Partial Pressure O2 55 mmHg 06/25/23 20:50 Venous Blood Partial Pressure CO2 34 mmHg (41-51) L 06/25/23 20:50 Venous Blood Oxygen Saturation 90 % 06/25/23 20:50 Venous Blood HCO3 22 mmol/L (23-28) L 06/25/23 20:50 Venous Blood Base Excess -2 mmol/L (-2-3) 06/25/23 20:50 Venous Blood Total Carbon Dioxide 20 mmol/L (24-29) L 06/25/23 20:50 Pancreas Panel: Lipase 35 U/L (16-77) 06/26/23 07:25 Thyroid Panel: No Data to Display Infectious Disease: No Data to Display Blood Cultures: No Data to Display Toxicology Panel: Ethyl Alcohol Level < 3.0 mg/dL (<10) 06/25/23 20:30 Urine Amphetamines Screen Negative (Negative) 06/26/23 00:06 Urine Benzodiazepines Screen Negative (Negative) 06/26/23 00:06 Urine Barbiturates Screen Negative (Negative) 06/26/23 00:06 Urine Cocaine Screen Negative (Negative) 06/26/23 00:06 Urine Methadone Screen Negative (Negative) 06/26/23 00:06 Urine Opiates Screen Negative (Negative) 06/26/23 00:06 Ur Tricyclic Antidepressants Screen Negative (Negative) 06/26/23 00:06 Ur Tetrahydrocannabinol (THC) Scrn Negative (Negative) 06/26/23 00:06 Imaging and Studies Imaging and Studies EKG Summary: DATE/TIME OF SERVICE: 05/08/20 1228 : 1960 PERFORMING LOCATION: ER APPROVED REPORT Exam: Resting ECG Patient Location: E HR:75 bpm ECG Measurements Heart Rate 75 AXIS [place] 137 P 29 QRSd 87 QRS 49 QT 419 T25 QTc 470 Conclusion Sinus rhythm. Nonspecific st changes Stress Test Summary: Date of study: 10/23/2016 *PATIENT PRESENTATION* Height: 162.6cm ((64in) ) Blood Pressure: Weight: 65.9kg ((145lb) ) BSA: 1.74m^2 Ordering physician: Felicitas Stephen Aprn Impressions: Normal study after maximal exercise. Echocardiogram Summary: Date of study: 11/03/2016 Transthoracic Echocardiography M-mode, complete 2D, complete spectral Doppler, and color Doppler *STUDY CONCLUSIONS* Summary: 1. Left ventricle: The cavity size was normal. Wall thickness was normal. Systolic function was normal. The estimated ejection fraction was 55-60%. Wall motion was normal; there were no regional wall motion abnormalities. 2. Right ventricle: The cavity size was normal. Systolic function was normal. Other Study Summary:: CT CHEST/ABD/PEL W 06/25/2023 9:16 PM FINDINGS: Bones/joints: Mild multilevel thoracic spine degenerative disc space narrowing and minimal osteophyte formation. Acute, mildly displaced fractures of the left posterior 1st and 2nd ribs, with small left apical extrapleural hematoma. Acute, mildly displaced right posterolateral 1st rib fracture. Acute, minimally displaced left T2 transverse process fracture. Soft tissues: Unremarkable. Pleural spaces: Tiny left anteromedial pneumothorax (less than 5%). IMPRESSION: 1. Acute, mildly displaced fractures of the left posterior 1st and 2nd ribs, with small left apical extrapleural hematoma. 2. Acute, mildly displaced right posterolateral 1st rib fracture. 3. Acute, minimally displaced left T2 transverse process fracture. 4. Tiny left anteromedial pneumothorax (less than 5%). Additional: Left Clavicle fracture
--- NOTE | 2023-06-26 14:15 | PHA.REVIEW2 ---
Pharmacy Admission Review Admission Clinical Review Admission Pharmacy Review: (Updated 06/26/23 @ 14:11 by Evette Stock) Right rib fracture (Acute) Separation of left acromioclavicular joint (Acute 06/25/23) Pleural effusion, left (Acute) Left pulmonary contusion (Acute) Closed fracture of transverse process of thoracic vertebra (Acute) Multiple fractures of ribs of left side (Acute) Pneumothorax, left (Acute) Anosmia (Acute) Asymmetrical sensorineural hearing loss (Acute) Adhesive capsulitis of right shoulder (Acute) Tendinopathy of right biceps tendon (Acute) Vaginal atrophy (Acute) gluten Allergy (Intermediate, Verified 06/25/23 19:39) erythromycin base Adverse Reaction (Intermediate, Verified 06/25/23 19:39) Nausea iron Adverse Reaction (Intermediate, Verified 06/25/23 19:39) Nausea Penicillins Adverse Reaction (Intermediate, Verified 06/25/23 19:39) flu symptoms Sulfa (Sulfonamide Antibiotics) Adverse Reaction (Intermediate, Verified 06/25/23 19:39) chest feels on fire Resuscitation Status Full Code Height 5 ft 4 in Weight 58.967 kg Comments Comments/Follow Ups: If patient remains admitted, contact provider about missing home meds (sertraline and clonazepam). Pharmacy Admission Review Renal Dosing Renal Dosing: BUN 18 mg/dL (7-18) 06/25/23 20:30 Creatinine 1.1 mg/dL (0.55-1.02) H 06/25/23 20:30 Medications needing adjustments: Reviewed (CrCl 50.63 mL/min) Anticoagulation Anticoagulation: Hgb 11.6 g/dL (11.2-15.7) D 06/26/23 07:25 Hct 35.7 % (36.0-46.0) L 06/26/23 07:25 Plt Count 271 10^3/uL (130-400) 06/26/23 07:25 Creatinine 1.1 mg/dL (0.55-1.02) H 06/25/23 20:30 DVT Prophylaxis: Reviewed Medications: Enoxaparin (40mg q24h) Opiate Usage Evaluate Pain Scale/Pains Meds: Reviewed (PRN morphine) Scheduled Bowel Reg ordered if on Opiates?: Yes (Miralax) Relevant Labs Relevant Labs: Sodium 139 mmol/L (136-145) 06/25/23 20:30 Potassium 3.0 mmol/L (3.5-5.1) L 06/25/23 20:30 Chloride 104 mmol/L (98-107) 06/25/23 20:30 Electrolytes, C-Reactive P, ESR: Reviewed (No new labs for today) Cardiac Review Cardiac Review: Blood Pressure 128/71 1344 Blood Pressure 96/60 1247 Blood Pressure 122/75 0910 Blood Pressure 109/66 0840 Blood Pressure 100/52 0740 Blood Pressure 112/49 0721 Blood Pressure 99/45 0728 Troponin I < 50 ng/L (<or=60) 06/25/23 20:30 BP, HR, EF%: Reviewed (WNL, BP has been fluctuating quite a bit today.) QTc Review QTc: N/A (Last EKG from 05/08/2020) IV to PO Switch IV Medications: Reviewed Home Meds Home Med List reviewed: Reviewed Relevent Home Meds Not ordered & why?: Sertraline and Clonazepam, will reach out to provider if patient remains admitted Current Meds Current Medication Order Review: Reviewed Comments Comments/Follow Ups: If patient remains admitted, contact provider about missing home meds (sertraline and clonazepam).
[2023-06-26] MEDS: Lidocaine 5% Patch 1 PATCH TP (16:36)
[2023-06-26] MEDS: MORPHine 2 MG/ML SYR IVP (16:36)
--- NOTE | 2023-06-26 17:02 | CHAPLAIN ---
Katia was in bed when I visited. She had family members visiting and was not interesting in further conversation with me.
[2023-06-26] MEDS: Ondansetron 4 MG/2 ML VIAL IVP (18:08)
[2023-06-26] MEDS: Methocarbamol 750 MG TAB PO (19:54)
[2023-06-26] MEDS: Sertraline 100 MG TAB PO (21:19)
[2023-06-26] MEDS: clonazePAM 1 MG TAB PO (21:19)
--- NOTE | 2023-06-27 | DI.RAD_ITS ---
Exam(s) XR CHEST 2V PA LATERAL EXAM: XR CHEST 2V PA LATERAL CLINICAL HISTORY: f/u fall/ptx/mult rib fx TECHNIQUE: 2D digital imaging was performed of the chest. Two images were obtained. PA and lateral views were obtained. COMPARISON: CR XR CHEST 2V PA LATERAL from 10/11/[address] CHEST/ABD/PEL W from 06/25/2023 FINDINGS: MEDIASTINUM: Normal. HEART: Normal. PULMONARY VASCULATURE: Normal. LUNGS: Clear. PLEURAL SPACE: There is a small left pleural effusion.. The pneumothorax is not seen on the chest x- ray. It is best appreciated on the CT scan of the chest from 06/25/2023. BONE:Within normal limits for the patient's age. The fracture of the medial aspect of the left 1st r ib is noted. There is a left AC joint separation. OTHER FINDINGS:Normal. IMPRESSION: 1. Fracture of the medial aspect of the left 1st rib. 2. Left AC joint separation. 3. Small left pleural effusion. 4. The patient has left pneumothorax is not well demonstrated on this examination. It is best apprec iated on the CT scan of the chest from 06/25/2023. DATA REPOSITORY: RADIATION DOSE DELIVERED:
[2023-06-27] MEDS: Ketorolac 15 MG/ML VIAL IVP ×4 (02:52→20:34)
[2023-06-27 02:53] VITALS: BP 136/81; PULSE 71; RESP 16; TEMP 36.2; O2SAT 97
[2023-06-27] MEDS: Acetaminophen 500 MG TAB 1000 MG PO ×4 (02:53→20:37)
[2023-06-27] MEDS: traMADol 50 MG TAB PO (02:58)
[2023-06-27] MEDS: Patch Removal LIDOCAINE 1 EACH TP (05:26)
[2023-06-27] MEDS: Methocarbamol 750 MG TAB PO (05:26)
[2023-06-27] MEDS: Levothyroxine 50 MCG TAB PO (05:26)
[2023-06-27 07:43] VITALS: BP 123/75; PULSE 89; RESP 17; TEMP 36.2; O2SAT 97
[2023-06-27 08:05] VITALS: O2SAT 97
[2023-06-27] MEDS: Polyethylene Glycol 3350 17 GM PACKET PO ×2 (08:08→20:41)
[2023-06-27] MEDS: clonazePAM 1 MG TAB PO ×2 (08:08→20:37)
[2023-06-27] MEDS: Normal Saline Flush 10 ML SYR IVP ×3 (08:14→20:38)
[2023-06-27] MEDS: Enoxaparin 40 MG/0.4 ML SYR SC (08:15)
--- NOTE | 2023-06-27 09:18 | PDOC.CMPRO ---
Date of service: 06/27/23 Time of Service: 09:18 Care Management Progress Note Progress Note Text Progress Note Text: S/O:Katia was sitting on the side of the bed visiting with her family when CM met with her. She appeared to be in good spirits and stated that she feels well except for some nausea and constipation. . Katia has been told that she will likely be discharged tomorrow if her pain continues to be managed on oral pain medications. She has been ambulating in her room and is able to feed herself and toilet independently. A: Katia is a 62 year old woman admitted on 06/26/23 with multiple fractures following a fall P: Anticipate Katia will be discharged home with no new services. She will follow up with her surgeon, PCP and plan of care and transport with family. CM will follow and address discharge concerns.
--- NOTE | 2023-06-27 09:56 | ANES.CON_ITS ---
General Date of Service Date of Service: 06/27/23 Reason for Consult Requesting Provider: Evette Gaines Height: 5 ft 4 in Weight: 58.967 kg Body Mass Index (BMI): 22.3 Meds Allergies and Home Medications Allergies Allergy/AdvReac Type Severity Reaction Status Date / Time gluten Allergy Intermediate Verified 06/25/23 19:39 erythromycin base AdvReac Intermediate Nausea Verified 06/25/23 19:39 iron AdvReac Intermediate Nausea Verified 06/25/23 19:39 Penicillins AdvReac Intermediate flu Verified 06/25/23 19:39 symptoms Sulfa (Sulfonamide AdvReac Intermediate chest Verified 06/25/23 19:39 Antibiotics) feels on fire Home Medication Medication Instructions Recorded albuterol sulfate 90 mcg/actuation 2 puff inhalation Q6H PRN 01/04/15 aerosol inhaler clonazepam 1 mg tablet (Klonopin) 1 mg PO BID 05/13/19 albuterol sulfate 90 mcg/actuation 1 puff inhalation Q6H PRN 11/08/21 aerosol inhaler (ProAir HFA) fluticasone propionate 50 2 spray intranasal BID 11/08/21 mcg/actuation nasal spray,suspension levothyroxine 50 mcg capsule 50 mcg PO DAILY 11/08/21 polyethylene glycol 3350 17 17 g PO DAILY 11/08/21 gram/dose oral powder (Miralax) sertraline 100 mg tablet 100 mg PO DAILY 04/24/23 sertraline 50 mg tablet 50 mg PO DAILY 06/26/23 Current Visit Medications: Current Medications Generic Name Dose Route Start Last Admin Trade Name Freq PRN Reason Stop Dose Admin Acetaminophen 1,000 mg 06/26/23 08:00 06/27/23 08:09 Acetaminophen 500 Mg Tab PO 1,000 mg Q6H BENEDICT Administration Albuterol Sulfate 2 puff 06/26/23 06:30 Albuterol Hfa 8 Gm 60 Puff Inh IH Q6H PRN PRN Clonazepam 1 mg 06/26/23 21:00 06/27/23 08:08 Clonazepam 1 Mg Tab PO 1 mg BID BENEDICT Administration Device 1 each 06/26/23 07:00 Inhaler, Assist Device DIRECTED BENEDICT Enoxaparin Sodium 40 mg 06/26/23 08:30 06/27/23 08:15 Enoxaparin 40 Mg/0.4 Ml Syr SC 40 mg Q24H BENEDICT Administration Sodium Chloride 1,000 mls @ 75 mls/hr 06/26/23 08:30 06/26/23 21:48 Saline 1000ml Bag IV 75 mls/hr INFUSION BENEDICT Administration IV Miscellaneous Supplies 1 each 06/26/23 06:30 Iv Access IV DIRECTED BENEDICT Ketorolac Tromethamine 15 mg 06/26/23 08:00 06/27/23 08:09 Ketorolac 15 Mg/Ml Vial IVP 07/01/23 07:59 15 mg Q6H BENEDICT Administration Levothyroxine Sodium 50 mcg 06/26/23 08:30 06/27/23 05:26 Levothyroxine 50 Mcg Tab PO 50 mcg DAILY@0600 BENEDICT Administration Lidocaine 1 patch 06/26/23 16:30 06/26/23 16:36 Lidocaine 5% Patch TP 1 patch Q24H BENEDICT Administration Methocarbamol 750 mg 06/26/23 08:11 06/27/23 05:26 Methocarbamol 750 Mg Tab PO 750 mg QID PRN PRN Administration Miscellaneous 1 each 06/27/23 04:30 06/27/23 05:26 Patch Removal Lidocaine TP 1 each DAILY@0430 BENEDICT Administration Morphine Sulfate 2 mg 06/26/23 06:22 06/26/23 16:36 Morphine 2 Mg/Ml Syr IVP 2 mg Q1H PRN PRN Administration Ondansetron HCl 4 mg 06/26/23 06:22 06/26/23 18:08 Ondansetron 4 Mg/2 Ml Vial IVP 4 mg Q4H PRN PRN Administration Polyethylene Glycol 17 gm 06/26/23 08:30 06/27/23 08:08 Polyethylene Glycol 3350 17 Gm Packet PO 17 gm DAILY BENEDICT Administration Sertraline HCl 100 mg 06/26/23 22:00 06/26/23 21:19 Sertraline 100 Mg Tab PO 100 mg HS BENEDICT Administration Sodium Chloride 0 ml 06/26/23 06:22 06/26/23 16:37 Normal Saline Flush 10 Ml Syr IVP 10 ml PRN PRN Administration Sodium Chloride 0 ml 06/26/23 08:30 06/27/23 08:14 Normal Saline Flush 10 Ml Syr IVP 10 ml BID BENEDICT Administration Sodium Chloride 0 ml 06/26/23 06:22 Normal Saline 10 Ml Vial IJ DIRECTED PRN Tramadol HCl 50 mg 06/26/23 06:22 06/27/23 02:58 Tramadol 50 Mg Tab PO 50 mg Q6H PRN PRN Administration Pain PFSH Active Problems Active Problems: Problem Status Onset Code Right rib fracture S22.31XA Separation of left acromioclavicular joint 06/25/23 S43.102A Pleural effusion, left J90 Left pulmonary contusion S27.321A Closed fracture of transverse process of thoracic vertebra S22.009A Multiple fractures of ribs of left side S22.42XA Pneumothorax, left J93.9 Anosmia R43.0 Asymmetrical sensorineural hearing loss H90.3 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 Tendinopathy of right biceps tendon M67.921 Vaginal atrophy N95.2 Interstitial cystitis N30.10 Medical History Medical History Hx of syncope Rotator cuff syndrome of left shoulder Hx of adenomatous polyp of colon Right shoulder pain Tension headache Facial pain, atypical Anxiety with depression Seborrheic dermatitis Memory impairment Frequent falls Family history of heart disease Food allergy Cough Cystitis Dry eyes Adenomatous colon polyp MADISON positive Hyperparathyroidism Hypercalcemia Anxiety and depression Pneumonia Ceruminosis Fatigue Hearing loss Anemia, iron deficiency Hypothyroidism Seizure disorder Syncope Chronic constipation Paresthesias Vertigo Dizziness Grief reaction Abnormal uterine bleeding Headache Rotator cuff syndrome Left elbow pain Hair loss Pain, joint, shoulder, right Anxiety Abdominal pain Surgical History Surgical History Tubal Ligation, Colonoscopy - [facility] (04/18/17) Tobacco Smoking/Tobacco Use Status: Never Alcohol Alcohol Intake: current Alcohol intake frequency: holidays/special occasions only Substance Use Substance use: Never Substance use type: does not use Vital Signs & Lab Results Vital Signs Most Recent Vital Signs: Most Recent Vital Signs Temp Pulse Resp BP Pulse Ox 36.2 C L 89 17 123/75 97 06/27/23 07:43 06/27/23 07:43 06/27/23 07:43 06/27/23 07:43 06/27/23 08:05 Point of Care Results Nursing Point of Care Results: 2 No Data to Display Lab Results 06/26/23 07:25 06/25/23 20:30 Blood Type / Crossmatch: 2 Patient ABO/Rh O Positive 06/25/23 Antibody Screen NEGATIVE 06/25/23 Complete Blood Count: 2 White Blood Count 9.04 10^3/uL (4.4-10.8) 06/26/23 07:25 Red Blood Count 4.03 10^6/uL (3.93-5.22) 06/26/23 07:25 Hemoglobin 11.6 g/dL (11.2-15.7) 06/26/23 07:25 Hematocrit 35.7 % (36.0-46.0) L 06/26/23 07:25 Platelet Count 271 10^3/uL (130-400) 06/26/23 07:25 Venous Blood Lactate 2.8 mmol/L (0.6-1.4) H* 06/25/23 20:50 Complete Metabolic Panel: 2 Sodium 139 mmol/L (136-145) 06/25/23 20:30 Potassium 3.0 mmol/L (3.5-5.1) L 06/25/23 20:30 Chloride 104 mmol/L (98-107) 06/25/23 20:30 Carbon Dioxide 21.1 mmol/L (21.0-32.0) 06/25/23 20:30 BUN 18 mg/dL (7-18) 06/25/23 20:30 Creatinine 1.1 mg/dL (0.55-1.02) H 06/25/23 20:30 Est GFR (CKD-EPI 2020) 57.52 (mL/min/1.73m2) 06/25/23 20:30 Calcium 10.4 mg/dL (8.5-10.1) H 06/25/23 20:30 Albumin 4.0 g/dL (3.4-5.0) 06/25/23 20:30 Glucose 145 mg/dL (74-106) H 06/25/23 20:30 Liver Function Panel: 2 Alanine Aminotransferase (ALT/SGPT) 36 U/L (14-59) 06/25/23 20: 30 Aspartate Amino Transf (AST/SGOT) 31 U/L (15-37) 06/25/23 20:30 Coagulation Panel: 2 No Data to Display Cardiac Panel: 2 Troponin I < 50 ng/L (<or=60) 06/25/23 Arterial Blood Gas: 2 No Data to Display Venous Blood Gas: 2 Venous Blood pH 7.43 (7.31-7.41) H 06/25/23 20:50 Venous Blood Partial Pressure O2 55 mmHg 06/25/23 20:50 Venous Blood Partial Pressure CO2 34 mmHg (41-51) L 06/25/23 20 :50 Venous Blood Oxygen Saturation 90 % 06/25/23 20:50 Venous Blood HCO3 22 mmol/L (23-28) L 06/25/23 20:50 Venous Blood Base Excess -2 mmol/L (-2-3) 06/25/23 20:50 Venous Blood Total Carbon Dioxide 20 mmol/L (24-29) L 06/25/23 20:50 Pancreas Panel: 2 Lipase 35 U/L (16-77) 06/26/23 07:25 Thyroid Panel: 2 No Data to Display Infectious Disease: 2 No Data to Display Blood Cultures: 2 No Data to Display Toxicology Panel: 2 Ethyl Alcohol Level < 3.0 mg/dL (<10) 06/25/23 20:30 Urine Amphetamines Screen Negative (Negative) 06/26/23 00:06 Urine Benzodiazepines Screen Negative (Negative) 06/26/23 00:0 6 Urine Barbiturates Screen Negative (Negative) 06/26/23 00:06 Urine Cocaine Screen Negative (Negative) 06/26/23 00:06 Urine Methadone Screen Negative (Negative) 06/26/23 00:06 Urine Opiates Screen Negative (Negative) 06/26/23 00:06 Ur Tricyclic Antidepressants Screen Negative (Negative) 00:06 Ur Tetrahydrocannabinol (THC) Scrn Negative (Negative) 4 00:06 Imaging and Studies Imaging and Studies EKG Summary: DATE/TIME OF SERVICE: 05/08/20 1228 : 1960 PERFORMING LOCATION: ER APPROVED REPORT Exam: Resting ECG Patient Location: E HR:75 bpm ECG Measurements Heart Rate 75 AXIS MO 137 P 29 QRSd 87 QRS 49 QT 419 T25 QTc 470 Conclusion Sinus rhythm. Nonspecific st changes Stress Test Summary: Date of study: 10/23/2016 *PATIENT PRESENTATION* Height: 162.6cm ((64in) ) Blood Pressure: Weight: 65.9kg ((145lb) ) BSA: 1.74m^2 Ordering physician: Felicitas Stephen Aprn Impressions: Normal study after maximal exercise. Echocardiogram Summary: Date of study: 11/03/2016 Transthoracic Echocardiography M-mode, complete 2D, complete spectral Doppler, and color Doppler *STUDY CONCLUSIONS* Summary: 1. Left ventricle: The cavity size was normal. Wall thickness was normal. Systolic function was normal. The estimated ejection fraction was 55-60%. Wall motion was normal; there were no regional wall motion abnormalities. 2. Right ventricle: The cavity size was normal. Systolic function was normal. Other Study Summary:: CT CHEST/ABD/PEL W 06/25/2023 9:16 PM FINDINGS: Bones/joints: Mild multilevel thoracic spine degenerative disc space narrowing and minimal osteophyte formation. Acute, mildly displaced fractures of the left posterior 1st and 2nd ribs, with small left apical extrapleural hematoma. Acute, mildly displaced right posterolateral 1st rib fracture. Acute, minimally displaced left T2 transverse process fracture. Soft tissues: Unremarkable. Pleural spaces: Tiny left anteromedial pneumothorax (less than 5%). IMPRESSION: 1. Acute, mildly displaced fractures of the left posterior 1st and 2nd ribs, with small left apical extrapleural hematoma. 2. Acute, mildly displaced right posterolateral 1st rib fracture. 3. Acute, minimally displaced left T2 transverse process fracture. 4. Tiny left anteromedial pneumothorax (less than 5%). Additional: Left Clavicle fracture
--- NOTE | 2023-06-27 09:57 | PDOC.ANES ---
Date of service: 06/27/23 Time of Service: 09:30 Anesthesia Note Report Anesthesia Note: Pt seen in Med-Surg Rm 231. Follow-up conversation with patient regarding an DEMOND block at the request of Dr. Gaines. Pt seen and given risk/benefits of block. Pt describes a better night last night with pain control and able to ambulate and do activities of daily living better this am. Pt. also describes active evolvement with breathing exercises. Pt describes the majority of her pain this am around her left clavicle fracture. Pt decided to see how today goes and then determine later today if she will receive the DEMOND block. Will follow up with her later this afternoon. Luis Antonio Brown, MARTINA
[2023-06-27] MEDS: Ondansetron 4 MG/2 ML VIAL IVP (12:25)
[2023-06-27] MEDS: Bisacodyl 5 MG TABEC 10 MG PO (13:30)
--- NOTE | 2023-06-27 14:18 | W.PM.PROGNOT ---
Date of Service Date of service: 06/27/23 Time of Service: 14:18 Assessment and Plan Assessment and plan (1) Pneumothorax, left: Status: Acute Assessment and plan: appears resolved by CXR today cont IS (2) Right rib fracture: Status: Acute Assessment and plan: pain control IS PT refused anesthesia block (3) Separation of left acromioclavicular joint: Status: Acute Assessment and plan: maintain sling pain control; will try to maintain releif with primarily oral meds in anticipation of discharg plan for outpt ortho f/u, PT (4) Constipation: Status: Acute Assessment and plan: --home regimen of Miralax bid --Dulcolax, suppository prn (5) Closed fracture of transverse process of thoracic vertebra: Status: Acute Assessment and plan: pain control (6) Multiple fractures of ribs of left side: Status: Acute Assessment and plan: pain control IS Subjective Subjective Interval history since last seen: Pain fairly well controlled. Has been using IS, and feels she is breathing well. Pt refused anesthesia nerve block. Occasionally nauseated, and feels constipated, but this is near her baseline. Tolerating diet. Voiding without difficulty. Able to ambulate, and toilet independently. Awaiting PT consult Exam Const General: cooperative, healthy appearing, comfortable and no acute distress Nutritional Appearance: average body habitus Orientation: alert, awake and oriented x3 HENMT Head: normal to inspection and normocephalic Eyes Alignment and Position: alignment normal Neck Neck: normal visual inspection, trachea midline, supple, nontender and no tracheal deviation Other: no crepitus/sub emphysema Chest Other: no chest crepitus/subcutaneous emphysema; tender over left clavicular/shoulder area withour significantt bruising Resp Effort & Inspection: normal respiratory effort and able to speak in complete sentences Auscultation: clear to auscultation bilaterally Cardio Rate: regular rate Rhythm: regular rhythm Heart Sounds: S1 normal and S2 normal GI Palpation: soft, no guarding, not rigid and nontender Auscultation: normal bowel sounds Extrem Other: no LE edema Psych Mental Status: mental status grossly normal Thought Process: normal Thought Content: normal Insight: insight good Judgment: judgment good Objective Last Vital Signs Temp 97.2 F L 06/27/23 07:43 Pulse 89 06/27/23 07:43 Resp 17 06/27/23 07:43 BP 123/75 06/27/23 07:43 Pulse Ox 97 06/27/23 08:05 Time Spent with Patient Time Spent with Patient: 25-34 minutes Time was spent: preparing to see the patient(eg.review tests), obtaining and/or reviewing separately otained hiistory, ordering medications,tests, procedures, referring, communicating with other health childcare center administrator, indepentently interpreting results and counseling the patient
--- NOTE | 2023-06-27 15:25 | IN_ITS ---
PT Notes Visit Reasons: Fall/Blunt Chest Trauma Physical Therapy Inpatient Initial Evaluation Date: 06/27/2023 Referring Doctor: Evette Gaines MD PT Orders: PT CONSULT: Eval/Treat Precautions: Fall. Standard. Per Dr. Potter as of 06/26/2023: Recommend patient wear soft cervical collar for comfort. She will wear sling for comfort. Recommend patient avoid heavy lifting and be cautious with activity involving the left arm including limiting motion to below shoulder height. Patient Profile/Admitting Diagnosis: Katia is a 62-year-old female who presented to the ED on 06/26/2022 with diagnosis of left AC joint separation, T2 TP fracture, and multiple rib fracture sustained from mechanical fall while moving old brandy-sized mattress out of the room with . PMHX: All Active Problems Right rib fracture (Acute) Posterolateral right 1st rib fracture Separation of left acromioclavicular joint (Acute 06/25/23) Pleural effusion, left (Acute) Left pulmonary contusion (Acute) Closed fracture of transverse process of thoracic vertebra (Acute) Left T2 Multiple fractures of ribs of left side (Acute) Left posterior fractures of 1 and 2Pneumothorax, left (Acute) Anosmia (Acute) Asymmetrical sensorineural hearing loss (Acute) Adhesive capsulitis of right shoulder (Acute) Tendinopathy of right biceps tendon (Acute) Vaginal atrophy (Acute) Interstitial cystitis (Acute) Medical History Hx of syncope Rotator cuff syndrome of left shoulder Hx of adenomatous polyp of colon Right shoulder pain Tension headache Facial pain, atypical Anxiety with depression Seborrheic dermatitis Memory impairment Frequent falls Family history of heart disease Food allergy Cough Cystitis Dry eyes Adenomatous colon polyp MADISON positive Hyperparathyroidism Hypercalcemia Anxiety and depression Pneumonia Ceruminosis Fatigue Hearing loss Anemia, iron deficiency Hypothyroidism Seizure disorder Syncope Chronic constipation Paresthesias Vertigo Dizziness Grief reaction Abnormal uterine bleeding Headache Rotator cuff syndrome Left elbow pain Hair loss Pain, joint, shoulder, right Anxiety Abdominal pain Surgical History Tubal Ligation, Colonoscopy - [facility] [place], [place] (04/18/17) Social History/Home Situation: Lives with in a private home with 2 steps to enter and a flight of stpes to the bedroom. Independent with all aspects of ADLs prior to surgery. Equipment Owned/DME: None needed prior to admission Subjective: 5/10 pain in the shoudler and around the ribs. Agreeabe totrtying out walking. Nurse Lelo premedicated patient 15-20 minutes beforre PT visit. verbalizes minimal headache that did not worsen throughout the walk. denies pain with michelle thing at time of evaluation. Objective: General Observation: Resting in bed. Sling on L. present in room. Mental Status: Alert and oriented as to person, place, time, and purpose. Able t o pay attention, focus, and respond appropriately. Pain: As above Vital Signs: WNl as closely monitored by nursing staff ROM: Right Upper Extremity: Shoulder Flexion WFL. Shoulder abduction WFL. Elbow flexion WFL. Wrist flexion WFL. Functional opening and closing of hand WFL. Left Upper Extremity: Shoulder Flexion allows up to 60 degrees actively. Shoulder abduction allows about 45 degrees actively. Shoulder ER about 30 degrees, IR WNL but with pain at end of range probably from gentle pressure on ribs at end range. Elbow flexion WFL. Wrist flexion WFL. Functional opening and closing of hand WFL. Right Lower Extremity: Hip flexion WFL. Hip abduction WFL. Knee flexion WFL. Ankle dorsiflexion WFL. Ankle plantarflexion WFL. Left Lower Extremity: Hip flexion WFL. Hip abduction WFL. Knee flexion WFL. Ankle dorsiflexion WFL. Ankle plantarflexion WFL. Strength: Right Upper Extremity: Shoulder flexors 4/5. Shoulder abductors 4/5. Elbow flexors 5/5. Elbow extensors 5/5. Desulphuring Operator strong. Left Upper Extremity: Shoulder flexors 3-/5. Shoulder abductors 3-/5. Elbow flexors 3/5. Elbow extensors 3/5. Desulphuring Operator strong. Right Lower Extremity: Hip flexors 5/5. Hip abductors 5/5. Knee flexors 5/5. Knee extensors 5/5. Ankle dorsiflexors 5/5. Ankle plantarflexors 5/5. Left Lower Extremity: Hip flexors 5/5. Hip abductors 5/5. Knee flexors 5/5. Knee extensors 5/5. Ankle dorsiflexors 5/5. Ankle plantarflexors 5/5. Bed Mobility/Transfers: Rolling to L independent Supine to sit independent Sit to supine independent Sit to stand independent Stand to sit independent Bed to reclining chair independent Reclining chair to bed independent Gait: Supervision with level surface ambulation using no AD with sling on L for comfort. Gait pattern unremarkable. Stairs: Up-and-down 6 x 4 inch steps and 4 x 6 inch steps while holding onto normal rail with supervision assist only with report of no increased pain throughout. Balance: Static Sitting: Normal Dynamic Sitting: Normal Static Standing: Good Dynamic Standing: Good Special Tests: Mobility Limitations Standardized Measure [facility] AM-PAC 6 clicks Basic Mobility Inpatient Short Form: Raw Score: 24 CMS Score: 0% deficit Informed Consent/Education: Patient was instructed in purpose of PT consult and plan of care. Agreeable to another session tomorrow for AROM education and training. Also emphasized increased awareness of tension in the L shoulder and to slowly and consciously depress shoulder to be level with the R as needed. THERA EX: L shoulder flexion to 80 degrees x 3 L shoulder abduction to about 45 degrees x 3 Elbow flesion x 5 Gentle L shoulder depression to be level with the R incorporated with breathing exercises(increased muscle guarding of shoulder/scapular elevators/upper traps) ASSESSMENT: Supervision only with level surface ambulation. Sling on L to minimize pain in L shoulder and A/C joint. Will need one more session for HEP education and another level surface ambulation. Patient presents with clinical signs and symptoms consistent with current/admitting diagnoses that have resulted to mobility limitations, gait instability, generalized weakness, and overall ADL decline as demonstrated by the following impairment level findings: 1. Decreased strength to L UE shoulder muscles due to ijury above 2. Impaired activity tolerance due to pain report as above 4. Limitation of joint range of motion in L shoulder 5. Pain with movement Impairments are contributing to the following functional limitations:e 1. Increased completion time for mobility ADL performance Patient is assessed as a 11598 moderate complexity based on the following: History: 62-year-old female with past medical history as indicated above Examination: As above Presentation: Stable Decision Makin moderate complexity Goals: Goals X1 week 1. Independent gait on level surface with no AD for at least 600 feet without report of pain nor dyspnea 2. Independent stair negotiation while holding onto no rails rails for at least 3 steps without report of pain nor dyspnea 3. Independent with home exercise program Plan of Care/Treatment Plan: 1-2x/day, 7 days/week x 1 week. Plan of care has been reviewed with the [facility] providing the service under Physical Therapy direction. Initiate Physical Therapy intervention for pain management as needed, strengthening, bed mobility, transfers, gait, stairs, balance training, and use of assistive device. Provide HEP as ordered by Dr. Potter: Gentle ROM with L UE to shoulder level only prior to discharge. DISCHARGE RECOMMENDATIONS: [] Home with no services [] [] Home with services [specify] [X] Home with outpatient PT for L shoulder rehabilitation. [] SNF for continued rehabilitation [] [] [facility] [] [] SNF versus LTC based on ability to participate and progress [] TREATMENT CODE/TIME: 11262 x 24 minutes for 1 unit beginning at 15:25 PM. Thank you for the opportunity to participate in the care of this patient. Kylee Albrecht PT, DPT, CLT [facility] [place], [place]
[2023-06-27 16:13] VITALS: BP 123/70; PULSE 79; RESP 18; TEMP 37.2; O2SAT 94
[2023-06-27] MEDS: Lidocaine 5% Patch 1 PATCH TP (17:25)
[2023-06-27] MEDS: Sertraline 100 MG TAB PO (20:37)
[2023-06-27 23:36] VITALS: BP 126/72; PULSE 80; RESP 16; TEMP 36.1; O2SAT 95
[2023-06-28] MEDS: Acetaminophen 500 MG TAB 1000 MG PO ×2 (02:30→08:45)
[2023-06-28] MEDS: Ketorolac 15 MG/ML VIAL IVP ×2 (02:30→08:45)
[2023-06-28] MEDS: Normal Saline Flush 10 ML SYR IVP ×2 (02:31→08:45)
[2023-06-28] MEDS: Levothyroxine 50 MCG TAB PO (04:47)
[2023-06-28] MEDS: Patch Removal LIDOCAINE 1 EACH TP (04:47)
[2023-06-28] MEDS: clonazePAM 1 MG TAB PO (08:45)
[2023-06-28] MEDS: Polyethylene Glycol 3350 17 GM PACKET PO (08:45)
[2023-06-28] MEDS: Enoxaparin 40 MG/0.4 ML SYR SC (08:45)
--- NOTE | 2023-06-28 09:25 | W.PM.DS.N ---
Date of service: 06/28/23 Time of Service: 09:31 DS: Diagnosis Discharge Diagnosis (1) Pneumothorax, left: Status: Acute Asessment and Plan: Left pneumothorax appeared resolved on CXR on 06/27 and 06/28--imaging reviewed with Dr. Alfaro (2) Right rib fracture: Status: Acute Asessment and Plan: pain control (3) Separation of left acromioclavicular joint: Status: Acute Asessment and Plan: Recommend to maintain sling for comfort Plan for home with outpatient PT F/u with orthopedics in 2-4 weeks (4) Constipation: Status: Chronic Asessment and Plan: Pt had large bowel movement yesterday after enema. Feels better. --maintain on Miralax bid prn at home (5) Closed fracture of transverse process of thoracic vertebra: Status: Acute Asessment and Plan: pain control (6) Multiple fractures of ribs of left side: Status: Acute Asessment and Plan: pain control Discharge Plan Disposition Patient Disposition: Home Condition: Improving Discharge Details Reason For Visit: Fall/Blunt Chest Trauma Admit Date/Time: 06/26/23 06:22 Admit Provider: Evette Gaines Attending Provider: Evette Gaines Primary Care Provider: Berta Winchester Hospital Course Hospital Course: This is a 62-year-old female who presented to [facility] on the evening of 06/25/23, after a fall down stairs while trying to move a mattress. Upon evaluation in the ED, she was found to have: 1. Acute mildly displaced fractures of the posterior aspect of the left 1st and 2nd ribs. Also minimally displaced left T2 transverse process fracture. Also small left apical hematoma and tiny left pneumothorax, estimated at less than 5 percent. 2. Acute mildly displaced fracture of the posterolateral right 1st rib. 3. No fractures of the lumbosacral spine No LOC was definitively noted, and she had no intra-abdominal or pelvic injuries. She was admitted to the surgical service for further evaluation and pain control. She was seen by Dr. Potter, of orthopedics, who related that he Educated patient on AC joint separation including recommend conservative management but may have stiffness and deformity noted. Recommend patient wear soft cervical collar for comfort. She will wear sling for comfort. Recommend patient avoid heavy lifting and be cautious with activity involving the left arm including limiting motion to below shoulder height. The patient was seen by Anesthesia and offered a regional block for pain control, which she deferred and ultimately refused, as she felt her pain was manageable. Throughout her hospitalization, the patient remained hemodynamically stable. She has been tolerating a diet, with some nausea, and no vomiting. She has baseline nausea and constipation at home. Laxatives and enema were administered, she had a large bowel movement, and felt relief. Her pain has been controlled with scheduled acetaminophen, Toradol, lidocaine patch, and rare use of IV morphine. She is able to eat and ambulate independently. She was evaluated by PT, and home with outpatient physical therapy was recommended. Home Meds and New Rx's Prescriptions: New tramadol 50 mg Tablet 50 mg PO Q6H PRN PRN (Reason: Pain) Qty: 14 0RF Rx Instructions: Take 1 pill every 6 hours as needed for moderate to severe pain methocarbamol 750 mg Tablet 750 mg PO QID PRN PRN (Reason: muscle spasm) Qty: 14 0RF Rx Instructions: Take 1 pill every 6 hours for muscle spasm as needed lidocaine 5 % Adhesive Patch,Medicated 1 patch topical Q24H Qty: 15 0RF Rx Instructions: Place on left clavicle/shoulder for pain relief. Alternate on for 12 hours, and off for 12 hours. Continued clonazepam [Klonopin] 1 mg tablet 1 mg PO BID Rx Instructions: Brand only- no generics albuterol sulfate 8.5 GM HFA aerosol inhaler 2 puff Inhalation Q6H PRN fluticasone propionate 50 mcg/actuation spray,suspension 2 spray intranasal BID Rx Instructions: administer into each nostril albuterol sulfate [ProAir HFA] 90 mcg/actuation HFA aerosol inhaler 1 puff inhalation Q6H PRN levothyroxine 50 mcg capsule 50 mcg PO DAILY polyethylene glycol 3350 [Miralax] 17 gram/dose powder 17 g PO DAILY sertraline 100 mg tablet 100 mg PO DAILY sertraline 50 mg tablet 50 mg PO DAILY Patient Comments: TAKE ONE TABLET BY MOUTH EVERY DAY WITH 100MG Discharge Instructions Instructions: Traumatic Pneumothorax (DC), Rib Fracture (DC), Transverse Process Fracture (DC) Additional Instructions: For pain control, alternate taking acetaminophen and ibuprofen/naproxen every 4-6 hours for the first few days. Make sure not to exceed maximum dosage listed on bottle. You are prescribed a stronger non-narcotic pain medication (Tramadol) should you need it. Continue to use incentive spirometer (breathing exercises) at least 6 instances per day while awake May increase Miralax dosing to twice daily as needed No lifting >5-10 lbs F/u with orthopedics as scheduled. Outpatient physical therapy is being scheduled. Maintain sling on left side for comfort. Stand Alone Forms: Nursing Discharge Form Referrals: Javier Arias MD [ [facility] STAFF PHYSICIAN] - 07/04/23 2:30 am Activity:: see above Equipment/Supplies:: Sling (already provided) Diet:: As Tolerated DS: Summary Time Spent with Patient providing and/or coordinating discharge services: Greater than 30 minutes Status at Discharge Functional status at discharge: independent ambulation Overall status at discharge: patient is progressing back to baseline Mental Status: mental status grossly normal Speech and Movement: speech clear Mood: congruent mood Affect: normal affect Quality:SDOH Health Related Social Needs: No Data to Display Exam Const General: cooperative, healthy appearing, comfortable and no acute distress Nutritional Appearance: average body habitus Orientation: alert, awake and oriented x3 HENMT Mouth: moist mucous membranes Neck Neck: normal visual inspection and trachea midline Other: no subcutaneous emphysema/crepitus Chest Other: no subcutaneous emphysema/crepitus mild tenderness over left clavicle and shouder, and left lower thorax Mild bruising on left shoulder Resp Effort & Inspection: normal respiratory effort and able to speak in complete sentences Auscultation: clear to auscultation bilaterally Other: visualized using IS to ~2500 Cardio Rate: regular rate Rhythm: regular rhythm Heart Sounds: S1 normal and S2 normal GI Inspection: no abdominal wall ecchymosis and distended Palpation: soft, no guarding, not rigid and nontender Auscultation: normal bowel sounds Back/Spine/Pelvis Cervical Spine: No collar present and other (non-tender to palpation) Skin Other: warm, dry, no rashes or lesions noted Psych Appearance: grossly normal Mental Status: mental status grossly normal Speech and Movement: speech clear Mood: congruent mood Affect: normal affect Thought Process: normal Thought Content: normal Insight: insight good Judgment: judgment good DS: Data Vitals/I&O Vitals and I&O: Vital Signs Temperature 97.0 F L 06/27/23 23:36 Temperature Source Tympanic 06/27/23 23:36 Pulse 80 06/27/23 23:36 Pulse Rhythm Regular 06/27/23 22:14 Pulse 61 06/26/23 07:41 Respiratory Rate 16 06/27/23 23:36 Respiratory Effort Normal, Non-Labored 06/27/23 22:14 Respiratory Depth Normal 06/27/23 22:14 Respiratory Pattern Normal 06/27/23 22:14 Blood Pressure 126/72 06/27/23 23:36 Blood Pressure Mean 69 06/26/23 07:40 Blood Pressure Position Sitting 06/25/23 19:37 Pulse Oximetry 95 06/27/23 23:36 Oxygen Delivery Method Room Air 06/27/23 23:36 Oxygen Flow Rate 0 06/27/23 23:36 Pain Level 5 06/28/23 02:30 Comment Charge nurse notified of pt.'s BP. Pt. asleep at this time. 06/26/23 13:05 Comment NRB 06/25/23 21:40 Intake & Output 06/27/23 06/27/23 06/28/23 11:59 23:59 11:59 Intake Total 250 / 790 540 / 790 Output Total 500 / 1150 650 / 1150 Balance -250 / -360 -110 / -360 Intake: Oral 250 / 790 540 / 790 Output: Urine 500 / 1150 650 / 1150 Other: Urine Color Yellow Straw Urine Appearance Clear Clear Stool Size Large Stool Characteristics Soft Brown Voiding Methods Toilet Toilet Imaging CT scan - chest: Radiologist's impression: CT HEAD/C-SpINE (06/25/23): FINDINGS: BRAIN: Left parietal region scalp hematoma evident. No gas in the soft tissues at this level. There are no skull fractures nor fluid in the visualized paranasal sinuses. There is no evidence of intracranial hemorrhage, mass effect, or shift of midline structures. There are no extra-axial fluid collections. The ventricles are not enlarged or shifted and there is no blood within the ventricular system nor within the basal cisterns. CERVICAL SPINE: There is no evidence of cervical vertebral fracture nor listhesis. No significant prevertebral soft tissue swelling. Mild disc space narrowing C5-6 and C6-7 levels. There is no significant facet joint malalignment. No significant osseous lesions evident. There fractures of the left 1st and 2nd ribs as well as the right 1st rib. See separate dictation IMPRESSION: No acute intracranial findings on this noninfused CT scan of the brain.Parietal scalp hematoma. No evidence of cervical spine fracture, malalignment, nor acute compromise of the cervical spinal canal. There are acute fractures of the 1st and 2nd left ribs and 1st right rib. See separate thoracolumbar CT dictation for details. CT Thoracic/Lumbar Spine (06/25/23): FINDINGS: CT THORACIC SPINAL COLUMN: There is a minimally displaced fracture the posterior aspect of the left 1st rib and posteromedial left 2nd rib with subjacent small left apical subpleural hematoma. There is also a minimally displaced fracture of left T2 transverse process. Also evident is a tiny less than 5 percent left apical pneumothorax.. On the opposite-right side there is a mildly displaced fracture of the 1st rib anterolaterally. There are no compression fractures nor other fractures of the thoracic vertebral bodies. There is no facet malalignment. CT LUMBOSACRAL SPINAL COLUMN: No evidence of fracture or listhesis. No pars defects. No disc space narrowing. Some facet arthropathy noted at lower levels. No facet malalignment. No transverse process fractures. IMPRESSION: 1. Acute mildly displaced fractures of the posterior aspect of the left 1st and 2nd ribs. Also minimally displaced left T2 transverse process fracture. Also small left apical hematoma and tiny left pneumothorax, estimated at less than 5 percent. 2. Acute mildly displaced fracture of the posterolateral right 1st rib. 3. No fractures of the lumbosacral spine CT Chest/Abd/Pel (06/25/23): FINDINGS: CHEST: LUNGS: There is a small 5 percent left-sided pneumothorax. There are mildly displaced fractures of the left 1st and 2nd ribs posteriorly as well as the left T2 transverse process. There is also a mildly displaced fracture of the anterolateral right 1st rib. No lower down rib fractures identified. Mild subpleural infiltrate in the left lower lobe noted most probably related to hypoaeration. There is no pleural effusion on either side. No large lung contusions. No significant focal findings in the trachea and mainstem bronchi. No incidental lung lesions. MEDIASTINUM: No evidence of sternal fracture nor significant mediastinal hematoma. Visualized thyroid unremarkable.No incidental hilar nor mediastinal adenopathy. CARDIAC: Heart size is normal. There is no pericardial effusion.Thoracic aorta is intact. OSSEOUS: Bilateral upper rib fractures involving the left 1st and 2nd ribs and right 1st rib and dislocation of the left AC joint. ABDOMEN: There is no ascites. No evidence of mesenteric nor bowel wall hematoma. LIVER: No laceration. No incidental lesions. GALLBLADDER/BILIARY: No obvious gallbladder pathology. CBD is not dilated. PANCREAS: No evidence of pancreatic mass nor dilatation of the pancreatic duct. SPLEEN: Normal size. No lacerations. No lesions. Splenic and portal veins are patent. ADRENALS: There are no significant adrenal masses. KIDNEYS: No renal lacerations nor subcapsular hematomas. Small benign cyst in the inferior pole right kidney noted which does not require imaging workup. Even smaller benign cyst in the anterior cortex of the opposite-left kidney, also not requiring further workup.. No solid lesions nor calculi nor hydronephrosis. ABDOMINAL AORTA: Intact. No aneurysms. No dissection. Iliac arteries also intact. LYMPH NODES: There is no retroperitoneal nor paraaortic adenopathy. ABDOMINAL WALL: No evidence of significant anterior abdominal wall nor inguinal hernia. No significant subcutaneous bruising nor subcutaneous fluid collections. GI: No evidence of bowel hematoma nor mesenteric hematoma. No bowel obstruction nor free air. PELVIS: LYMPH NODES: There is no intrapelvic nor inguinal adenopathy. GI: No evidence of appendicitis.No evidence of sigmoid diverticulitis. URINARY BLADDER: Unremarkable. REPRODUCTIVE: Retroverted uterus with what appears to be fundal fibroid. No abnormal adnexal masses. No free fluid in the pelvis. OSSEOUS: No fractures. No incidental osseous lesions. IMPRESSION: 1. There are fractures of the left 1st and 2nd rib as well as fracture of the right 1st rib and there is also dislocation of the left AC joint. There is a small approximately 5 percent left-sided pneumothorax. No large lung contusion. No pleural effusion. No pericardial effusion. Aorta is intact. 2. No significant acute trauma sequelae in the abdomen and pelvis. Lab and Radiology Reports: Laboratory Results WBC 9.04 10^3/uL (4.4-10.8) 06/26/23 07:25 RBC 4.03 10^6/uL (3.93-5.22) 06/26/23 07:25 Hgb 11.6 g/dL (11.2-15.7) D 06/26/23 07:25 Hct 35.7 % (36.0-46.0) L 06/26/23 07:25 MCV 89 fL (80-95) 06/26/23 07:25 MCH 28.8 pg (27.0-33.0) 06/26/23 07:25 MCHC 32.5 % (32.0-36.0) 06/26/23 07:25 RDW 13.1 % (11.7-14.6) 06/26/23 07:25 Plt Count 271 10^3/uL (130-400) 06/26/23 07:25 MPV 8.5 fL (8.0-11.0) 06/26/23 07:25 Immature Gran % 0.3 06/26/23 07:25 Neutrophils % 63.1 06/26/23 07: Lymphocytes % 27.3 06/26/23 07:25 Monocytes % 8.7 06/26/23 07:25 Eosinophils % 0.3 06/26/23 07: Basophils % 0.3 06/26/23 07: Nucleated RBC % 0.0 % (0.0-0.3) 06/26/23 07:25 Absolute Neutrophils 5.69 10^3/uL (1.2-6.7) 06/26/23 07:25 Absolute Lymphocytes 2.47 10^3/uL (1.2-3.4) 06/26/23 07:25 Absolute Monocytes 0.79 10^3/uL (0.1-0.8) 06/26/23 07: Absolute Eosinophils 0.03 10^3/uL (0.0-0.7) 06/26/23 07: Absolute Basophils 0.03 10^3/uL (0.0-0.2) 06/26/23 07:25 VBG pH 7.43 (7.31-7.41) H 06/25/23 20:50 VBG pCO2 34 mmHg (41-51) L 06/25/23 20:50 VBG pO2 55 mmHg 06/25/23 20:50 VBG HCO3 22 mmol/L (23-28) L 06/25/23 20:50 VBG Total CO2 20 mmol/L (24-29) L 06/25/23 20:50 VBG O2 Saturation 90 % 06/25/23 20:50 VBG Base Excess -2 mmol/L (-2-3) 06/25/23 20:50 VBG Lactate 2.8 mmol/L (0.6-1.4) H* 06/25/23 20:50 Sodium 139 mmol/L (136-145) 06/25/23 20:30 Potassium 3.0 mmol/L (3.5-5.1) L 06/25/23 20:30 Chloride 104 mmol/L (98-107) 06/25/23 20:30 Carbon Dioxide 21.1 mmol/L (21.0-32.0) 06/25/23 20:30 Anion Gap 13.9 mmol/L (3-11) H 06/25/23 20:30 BUN 18 mg/dL (7-18) 06/25/23 20:30 Creatinine 1.1 mg/dL (0.55-1.02) H 06/25/23 20:30 Est GFR (CKD-EPI 2020) 57.52 (mL/min/1.73m2) 06/25/23 20:30 Glucose 145 mg/dL (74-106) H 06/25/23 20:30 Calcium 10.4 mg/dL (8.5-10.1) H 06/25/23 20:30 Total Bilirubin 0.5 mg/dL (0.2-1.0) 06/25/23 20:30 AST 31 U/L (15-37) 06/25/23 20:30 ALT 36 U/L (14-59) 06/25/23 20:30 Alkaline Phosphatase 45 U/L (46-116) L 06/25/23 20:30 Troponin I < 50 ng/L (<or=60) 06/25/23 20:30 Total Protein 7.8 g/dL (6.4-8.2) 06/25/23 20:30 Albumin 4.0 g/dL (3.4-5.0) 06/25/23 20:30 Lipase 35 U/L (16-77) 06/26/23 07:25 Urine Color Yellow (Yellow) 06/26/23 00:06 Urine Clarity Clear (Clear) 06/26/23 00:06 Urine pH 5.5 (5-8) 06/26/23 00:06 Ur Specific [place] 1.010 (1.005-1.025) 06/26/23 00:06 Urine Protein Negative mg/dL (Negative) 06/26/23 00:06 Urine Ketones Negative mg/dL (Negative) 06/26/23 00:06 Urine Blood Trace-intact (Negative) H 06/26/23 00:06 Urine Nitrite Negative (Negative) 06/26/23 00:06 Urine Bilirubin Negative (Negative) 06/26/23 00:06 Urine Urobilinogen 0.2 mg/dL (Up to 0.2) 06/26/23 00:06 Ur Leukocyte Esterase Negative (Negative) 06/26/23 00:06 Urine RBC 0-2 HPF (0-2) 06/26/23 00:06 Urine WBC 0-2 HPF (0-5) 06/26/23 00:06 Ur Epithelial Cells Rare HPF (Negative) 06/26/23 00:06 Urine Crystals Negative HPF (Negative) 06/26/23 00:06 Urine Bacteria Rare HPF (Negative) 06/26/23 00:06 Urine Mucus Negative (Negative) 06/26/23 00:06 Ur Culture Indicated? No 06/26/23 00:06 Urine Glucose Negative mg/dL (Negative) 06/26/23 00:06 Urine Opiates Screen Negative (Negative) 06/26/23 00:06 Urine Methadone Screen Negative (Negative) 06/26/23 00:06 Ur Barbiturates Screen Negative (Negative) 06/26/23 00:06 Ur Tricyclics Screen Negative (Negative) 06/26/23 00:06 Ur Amphetamines Screen Negative (Negative) 06/26/23 00:06 U Benzodiazepines Scrn Negative (Negative) 06/26/23 00:06 Urine Cocaine Screen Negative (Negative) 06/26/23 00:06 Ur THC Screen Negative (Negative) 06/26/23 00:06 Ethyl Alcohol < 3.0 mg/dL (<10) 06/25/23 20:30 Patient ABO/Rh O Positive 06/25/23 20:50 Antibody Screen NEGATIVE 06/25/23 20:50 PFSH All Active Problems (Updated 06/28/23 @ 09:33 by Hola Xiong MD) Constipation (Chronic) Right rib fracture (Acute) Posterolateral right 1st rib fracture Separation of left acromioclavicular joint (Acute 06/25/23) Pleural effusion, left (Acute) Left pulmonary contusion (Acute) Closed fracture of transverse process of thoracic vertebra (Acute) Left T2 Multiple fractures of ribs of left side (Acute) Left posterior fractures of 1 and 2 Pneumothorax, left (Acute) Anosmia (Acute) Asymmetrical sensorineural hearing loss (Acute) Adhesive capsulitis of right shoulder (Acute) Tendinopathy of right biceps tendon (Acute) Vaginal atrophy (Acute) Interstitial cystitis (Acute) Medical History Hx of syncope Rotator cuff syndrome of left shoulder Hx of adenomatous polyp of colon Right shoulder pain Tension headache Facial pain, atypical Anxiety with depression Seborrheic dermatitis Memory impairment Frequent falls Family history of heart disease Food allergy Cough Cystitis Dry eyes Adenomatous colon polyp [place] positive Hyperparathyroidism Hypercalcemia Anxiety and depression Pneumonia Ceruminosis Fatigue Hearing loss Anemia, iron deficiency Hypothyroidism Seizure disorder Syncope Chronic constipation Paresthesias Vertigo Dizziness Grief reaction Abnormal uterine bleeding Headache Rotator cuff syndrome Left elbow pain Hair loss Pain, joint, shoulder, right Anxiety Abdominal pain Surgical History Tubal Ligation, Colonoscopy - [facility] (04/18/17) Family History Mother Breast cancer COPD (chronic obstructive pulmonary disease) Father Valvular heart disease at 77 Bladder cancer Social History Smoking/Tobacco Use Status: Never Smoking risk assessment performed?: Yes Alcohol Intake: current Alcohol Intake frequency: holidays/special occasions only Drug use: Never Substance use type: does not use Housing: house Do you feel safe at home: Yes Do you feel safe in your relationship?: Yes Time Spent with Patient Time Spent with Patient: 45-69 minutes Time was spent: preparing to see the patient(eg.review tests), obtaining and/or reviewing separately otained hiistory, ordering medications,tests, procedures, referring, communicating with other health critical care specialist, indepentently interpreting results, counseling the patient and care coordination
[2023-06-28 09:30] VITALS: BP 120/77; PULSE 90; RESP 17; TEMP 36.5; O2SAT 93
--- NOTE | 2023-06-28 09:50 | DI.RAD_ITS ---
Exam(s) XR CHEST 2V PA LATERAL EXAM: XR CHEST 2V PA LATERAL CLINICAL HISTORY: eval PTX, pending discharge. TECHNIQUE: 2D digital imaging was performed. COMPARISON: CR XR CHEST 2V PA LATERAL from 06/27/2023 FINDINGS: 2 views: Posterior left 1st rib fractures seen on this study. This is 1 of the fractures described on the rec ent CT scan. The tiny left-sided pneumothorax seen on the CT scan is not visible on chest x-ray. Ei ther too small to appreciate or resolved. There is still a small left pleural effusion, unchanged in size. Appearance of the chest is unchange d from yesterday. Heart size remains normal and there is no mediastinal widening. No shift. IMPRESSION: Unchanged from 06/27/2023. DATA REPOSITORY: RADIATION DOSE DELIVERED:
--- NOTE | 2023-06-28 14:34 | PDOC.CMDIS ---
Date of service: 06/28/23 Time of Service: 14:34 LACE Index Scoring Tool Questions: Length of Stay (in days): 2 Was the patient admitted via the E.D.?: Yes E.D. Visits: 0 Answers: Total Score: 5 Risk of Readmission: Low Risk Care Management Discharge Plan Reason for Hospitalization: fractured clavicle, ribs, thoracic vertebra, pneumothorax Discharge Plan: Katia returned home today with no new services. Her drove her home via private vehicle. She will follow up with her PCP and discharge plan of care. Patient/Family Education Needs: Review discharge instructions and limitations, discussion of self care needs including ask me three. SDOH Health Related Social Needs: No Data to Display
== END 2023-06-28 13:49 | disposition home or self-care (01) | DRG 200 ==
LOC: ER 06-26 00:06 → MS 06-26 07:59
PROVIDERS: Emergency Medicine; Admitting Provider Surgery; Emergency Provider Student in an Organized Health Care Education/Training Program; PCP Family Medicine; Visit Provider Surgery
DX: S27.0XXA Traumatic pneumothorax, initial encounter (principal); E87.20 Acidosis, unspecified; S22.42XA Multiple fractures of ribs, left side, initial encounter for closed fracture; S27.321A Contusion of lung, unilateral, initial encounter; S22.028A Other fracture of second thoracic vertebra, initial encounter for closed fracture; J90 Pleural effusion, not elsewhere classified; S22.31XA Fracture of one rib, right side, initial encounter for closed fracture; M75.01 Adhesive capsulitis of right shoulder; N95.2 Postmenopausal atrophic vaginitis; M67.921 Unspecified disorder of synovium and tendon, right upper arm; M75.102 Unspecified rotator cuff tear or rupture of left shoulder, not specified as traumatic; E03.9 Hypothyroidism, unspecified; S43.102A Unspecified dislocation of left acromioclavicular joint, initial encounter; D72.829 Elevated white blood cell count, unspecified; E87.6 Hypokalemia; S00.03XA Contusion of scalp, initial encounter; W10.9XXA Fall (on) (from) unspecified stairs and steps, initial encounter; R29.6 Repeated falls; F41.8 Other specified anxiety disorders; D50.9 Iron deficiency anemia, unspecified; K59.09 Other constipation; R43.0 Anosmia
CPT/HCPCS: 00123; 36415; 70498; 74177; 76604; 76705; 76857; 80053; 80307; 82805; 83690; 86850; 86900; 86901; 96361; 96372; 96374; 96375; 97162; 99222; 99223; 99232; 99239; 99285; J1650; 70450; 71045; 71046; 71260; 72125; 73030; 80320; 81003; 81015; 83605; 84484; 85025; J1170; J1885; J2270; J2405; J3010; J3490

== ENCOUNTER 2023-07-04 15:54 | Outpatient (CLI) | payer MEDICAID, SELFPAY ==
--- NOTE | 2023-07-04 15:27 | DI.RAD_ITS ---
Exam(s) XR CLAVICLE LT EXAM: XR CLAVICLE LT CLINICAL HISTORY: F/U AC JOINT SEPARATION TECHNIQUE: 2D digital imaging was performed. Two views COMPARISON: CR,XR XR SHOULDER LT COMPLETE 2+V from 06/25/2023 CR XR CHEST 2V PA LATERAL from 06/27/2023 CR XR CHEST 2V PA LATERAL from 06/28/2023 FINDINGS: BONES: Left upper rib fractures again noted. No bony destructive lesion is seen. JOINTS: AC joint is widened the clavicle again projects superior to the acromion. This appears uncha nged.SOFT TISSUE: Unremarkable. IMPRESSION: Stable appearance of acromioclavicular joint separation. Left upper rib fractures. No visible pneum othorax. DATA REPOSITORY: RADIATION DOSE DELIVERED:
== END 2023-07-04 15:55 | disposition home or self-care (01) ==
LOC: DIORS 15:54
PROVIDERS: PCP Family Medicine; Visit Provider Student in an Organized Health Care Education/Training Program
DX: S22.32XD Fracture of one rib, left side, subsequent encounter for fracture with routine healing (principal); S42.122D Displaced fracture of acromial process, left shoulder, subsequent encounter for fracture with routine healing; X58.XXXD Exposure to other specified factors, subsequent encounter
CPT/HCPCS: 73000

== ENCOUNTER 2023-07-25 15:50 | Outpatient (CLI) | payer MEDICAID, SELFPAY ==
--- NOTE | 2023-07-25 15:09 | DI.RAD_ITS ---
Exam(s) XR CLAVICLE LT EXAM: XR CLAVICLE LT CLINICAL HISTORY: F/U FRACTURE TECHNIQUE: 2D digital imaging was performed. Two views COMPARISON: CR XR CLAVICLE LT from 07/04/2023 FINDINGS: BONES: Proximal left 1st and 2nd rib fractures again noted. No bony destructive lesion is seen. JOINTS: AC joint is again noted to be widened, unchanged from prior. The distal clavicle is elevated , unchanged from prior, widening of the cortical could clavicular distance. SOFT TISSUE: Unremarkable. No visible pneumothorax. IMPRESSION: Stable findings of acromioclavicular joint separation. DATA REPOSITORY: RADIATION DOSE DELIVERED:
== END 2023-07-25 15:51 | disposition home or self-care (01) ==
LOC: DIORS 15:50
PROVIDERS: PCP Family Medicine; Visit Provider Student in an Organized Health Care Education/Training Program
DX: S43.121D Dislocation of right acromioclavicular joint, 100%-200% displacement, subsequent encounter (principal); S22.42XD Multiple fractures of ribs, left side, subsequent encounter for fracture with routine healing; X58.XXXD Exposure to other specified factors, subsequent encounter
CPT/HCPCS: 73000

== ENCOUNTER → 2023-12-14 00:22 | Outpatient (CLI) | payer MEDICAID, SELFPAY ==
--- NOTE | 2023-12-14 06:45 | DI.MRI_ITS ---
Exam(s) MR UPPER JOINT LT WO EXAM: MR UPPER JOINT LT WO CLINICAL HISTORY: shoulder separation,possible rotator cuff tear,S43.102a. TECHNIQUE: Multiplanar multisequence MRI was performed. COMPARISON: CR,XR XR CHEST 1V IN DI DEPT from 06/25/2023 CR,XR XR SHOULDER LT COMPLETE 2+V from 06/25/2023 CR XR CLAVICLE LT from 07/04/2023 CR XR CLAVICLE LT from 07/25/2023 FINDINGS: BONES: There is no fracture or contusion pattern. JOINTS: There is unchanged superior displacement of the distal clavicle relative to the acromion. Th ere is mild edema seen in the distal clavicle. The acromion shows normal marrow signal. There is a small 7 mm linear on osseous fragment adjacent to the distal clavicle. Minimal residuals edema is se en in the soft tissues at the distal clavicle. No focal fluid collection is seen. The glenohumeral joint is normal. No significant glenohumeral joint effusion. TENDONS: Supraspinatus: There is tendinosis of the supraspinatus tendon without evidence of a tear. Infraspinatus: Unremarkable. Subscapularis: Unremarkable. Teres Minor: Unremarkable. Biceps and [place]: Unremarkable. MUSCLES: Unremarkable. GLENOID LABRUM: Unremarkable on this noncontrast examination. SOFT TISSUES: Unremarkable. LIGAMENTS: The acromioclavicular ligament appears torn. The cortical clavicular ligament appears thi ckened at its coracoid attachment which may represent old injury, although does appear to be intact. No hyperintense signal is seen around the cortical clavicular ligament at this time. OTHER: Subacromial and subdeltoid bursae are unremarkable. IMPRESSION: 1. Stable appearance of the left AC joint separation. There is a least 1 osseous fragment at the dis eulalio aspect of the clavicle suggesting an old fracture fragment. 2. No evidence of a rotator cuff or labral tear on this noncontrast examination. 3. Supraspinatus tendinosis. DATA REPOSITORY:
== END ==
PROVIDERS: PCP Family Medicine; Visit Provider Student in an Organized Health Care Education/Training Program
DX: S43.102A Unspecified dislocation of left acromioclavicular joint, initial encounter (principal)
CPT/HCPCS: 73221

== ENCOUNTER 2024-02-25 12:58 | Outpatient (REF) | payer MEDICAID, SELFPAY ==
[2024-02-25 15:23] LABS: Absolute Basophil Count 0.04 10^3/uL (0.0-0.2); Absolute Eosinophil Count 0.19 10^3/uL (0.0-0.7); Absolute Lymphocyte Count 1.83 10^3/uL (1.2-3.4); Absolute Monocyte Count 0.39 10^3/uL (0.1-0.8); Absolute Neutrophil Count 2.81 10^3/uL (1.2-6.7); Basophils % 0.8 %; Eosinophils % 3.6 %; HCT 37.3 % (36.0-46.0); HGB 12.2 g/dL (11.2-15.7); Lymphocytes % 34.8 %; MCH 29.5 pg (27.0-33.0); MCHC 32.7 % (32.0-36.0); MCV 90 fL (80-95); Monocytes % 7.4 %; Neutrophils % 53.4 %; Platelet Count 339 10^3/uL (130-400); RBC 4.13 10^6/uL (3.93-5.22); RDW 13.2 % (11.7-14.6); RDW-SD 43.6 fL; WBC 5.26 10^3/uL (4.4-10.8)
[2024-02-25 16:13] LABS: Calculated LDL 181 mg/dL (<100); Cholesterol 270 mg/dL (<200); HDL Cholesterol 44 mg/dL (40-60); TSH (W/Ref FT4) 1.67 uIU/mL (0.36-3.74); Triglyceride 225 mg/dL (<150)
[2024-02-26 09:10] LABS: ALT 41 U/L (14-59); AST 25 U/L (15-37); Albumin 3.8 g/dL (3.4-5.0); Alkaline Phosphatase 43 U/L (46-116); Anion Gap 10.5 mmol/L (3-11); BUN 12 mg/dL (7-18); Bilirubin, Total 0.36 mg/dL (0.2-1.0); CO2 26.5 mmol/L (21.0-32.0); Chloride 108 mmol/L (98-107); Estimated GFR 64.09 (mL/min/1.73m2); Glucose 84 mg/dL (74-106); Potassium 4.5 mmol/L (3.5-5.1); Sodium 145 mmol/L (136-145); Total Protein 6.7 g/dL (6.4-8.2)
== END 2024-02-25 12:59 | disposition home or self-care (01) ==
LOC: NCHCN 12:58
PROVIDERS: PCP Family Medicine; Visit Provider Family Medicine
DX: E03.9 Hypothyroidism, unspecified (principal); D50.9 Iron deficiency anemia, unspecified; Z86.79 Personal history of other diseases of the circulatory system
CPT/HCPCS: 80053; 80061; 84443; 85025

== ENCOUNTER 2024-03-14 00:56 | Outpatient (CLI) | payer MEDICAID, SELFPAY ==
--- NOTE | 2024-03-14 | DI.CT_ITS ---
Exam(s) CT ABDOMEN PELVIS W EXAM: CT ABDOMEN PELVIS W CLINICAL HISTORY: L UPPER QUADRANT PAIN, R10.12 TECHNIQUE: Imaging Protocol: Axial computed tomography images with coronal and sagittal reformatted images were created and reviewed. CONTRAST MATERIAL: Intravenous: Omnipaque 350 Contrast volume:85 mL Oral: Yes COMPARISON: CT CT CHEST/ABD/PEL W from 06/25/[address] THORACIC LUMBAR SPINE REC from 06/25/[address] CAROTID NECK CTA from 06/26/2023 FINDINGS: ABDOMEN: Lung Bases: Normal where visualized. Liver: Normal density. No measurable mass. Portal, Superior Mesenteric, and Splenic Veins: Unremarkable. Gallbladder and Biliary Tract: No radiodense calculus or dilation. Pancreas: Normal density, no abnormal calcifications or inflammatory process. Spleen: Normal. Adrenals: No masses seen. Kidneys: Normal size, contour and axis. No radiodense stones or obstructive uropathy. There is a simp le cyst in the inferior pole of the right kidney. No follow-up is recommended. Abdominal Aorta: Abdominal portion non-dilated. Atherosclerotic calcification is present. Bowel: No obstruction or bowel wall thickening. No evidence of appendicitis. Peritoneal Cavity: No ascites, collection or mesenteric inflammatory response. No free air. Lymph Nodes: Within normal limits. Bones: Within normal limits for the patient's age. Soft Tissues: Unremarkable. PELVIS: Bladder: Symmetric distention, no gross wall thickening. Reproductive Organs: Unremarkable as visualized. Lymph Nodes: Within normal limits. Bones: Within normal limits for the patient's age. IMPRESSION: No acute abdominal or pelvic process. RADIATION DOSE DELIVERED: 279.87mGy.cm Total DLP DATA REPOSITORY: All CT scans at this facility are submitted to the National Radiology Data Registry (NRDR) Dose Index Registry (DIR) with the [employer] (ACR). RADIATION OPTIMIZATION: All CT scans at this facility use at least one of these dose optimization te chniques: automated exposure control; mA and/or kV adjustment per patient size (includes targeted exa ms where dose is matched to clinical indication); or iterative reconstruction.
[2024-03-14] MEDS: Barium Sulfate 2% W/V-Berry Smoothie 450 ML BTL PO ×2 (08:40→08:41)
[2024-03-14] MEDS: Normal Saline - Diluent 50 ML VIAL IJ (10:49)
[2024-03-14] MEDS: Omnipaque 350 MG/ML 500 ML BTL-Imaging package 85 ML IJ (10:49)
== END 2024-03-14 01:16 ==
LOC: DI 00:57
PROVIDERS: PCP Family Medicine; Visit Provider Family Medicine
DX: R10.2 Pelvic and perineal pain (principal)
CPT/HCPCS: 74177

== ENCOUNTER 2024-07-16 14:06 | Outpatient (REF) | payer MEDICAID, SELFPAY ==
[2024-07-16 15:09] LABS: Abs Immature Grans 0.02 10^3/uL (0.0-0.06); Absolute Basophil Count 0.05 10^3/uL (0.0-0.2); Absolute Eosinophil Count 0.09 10^3/uL (0.0-0.7); Absolute Lymphocyte Count 1.92 10^3/uL (1.2-3.4); Absolute Monocyte Count 0.41 10^3/uL (0.1-0.8); Absolute Neutrophil Count 4.15 10^3/uL (1.2-6.7); Basophils % 0.8 %; Eosinophils % 1.4 %; HCT 42.5 % (36.0-46.0); HGB 13.9 g/dL (11.2-15.7); Immature Grans % 0.3 %; Lymphocytes % 28.9 %; MCH 29.5 pg (27.0-33.0); MCHC 32.7 % (32.0-36.0); MCV 90 fL (80-95); MPV 9.1 fL (8.0-11.0); Monocytes % 6.2 %; Neutrophils % 62.4 %; Platelet Count 367 10^3/uL (130-400); RBC 4.71 10^6/uL (3.93-5.22); RDW 12.8 % (11.7-14.6); RDW-SD 42.5 fL; WBC 6.64 10^3/uL (4.4-10.8)
[2024-07-16 15:54] LABS: ALT 68 U/L (14-59); Albumin 4.1 g/dL (3.4-5.0); Alkaline Phosphatase 62 U/L (46-116); Anion Gap 8.1 mmol/L (3-11); BUN 12 mg/dL (7-18); Bilirubin, Total 0.38 mg/dL (0.2-1.0); CO2 27.9 mmol/L (21.0-32.0); CREATININE 0.9 mg/dL (0.55-1.02); Calcium 10.7 mg/dL (8.5-10.1); Chloride 106 mmol/L (98-107); Estimated GFR 72.28 (mL/min/1.73m2); Glucose 102 mg/dL (74-106); Magnesium 2.1 mg/dL (1.8-2.4); Potassium 4.5 mmol/L (3.5-5.1); Sodium 142 mmol/L (136-145); TSH (W/Ref FT4) 3.99 uIU/mL (0.36-3.74); Total Protein 7.4 g/dL (6.4-8.2)
[2024-07-16 16:17] LABS: AST 32 U/L (15-37)
[2024-07-16 16:38] LABS: FREE T4 0.92 ng/dL (0.76-1.46)
== END 2024-07-16 14:07 | disposition home or self-care (01) ==
LOC: NCHCN 14:06
PROVIDERS: PCP Family Medicine; Visit Provider Family Medicine
DX: R00.2 Palpitations (principal)
CPT/HCPCS: 80053; 83735; 84439; 84443; 85025

== ENCOUNTER 2024-07-18 11:19 | Outpatient (CLI) | payer MEDICAID, SELFPAY | END 2024-07-18 11:20 | disposition home or self-care (01) | LOC: CARDOPNVT 11:19 | PROVIDERS: PCP Family Medicine; Visit Provider Family Medicine | DX: R00.2 Palpitations (principal) | CPT/HCPCS: 93246 ==

== ENCOUNTER 2024-08-07 07:03 | Outpatient (CLI) | payer MEDICAID, SELFPAY ==
--- NOTE | 2024-08-07 08:50 | W.CARDEVENT ---
Date of service: 08/07/24 Time of Service: 08:50 Cardiac Event Recorder Referring Provider:: Berta Winchester Indications:: Palpitations Cardiac Event Note: This is a cardiac event monitor. Patient was monitored for 13 days and 5 hours. Rhythm throughout was sinus with an average heart rate of 73. Minimum was 49, maximum 136. There were very rare isolated atrial and ventricular ectopic beats. There was no atrial fibrillation, no high-grade AV block, no pauses greater than 3 seconds, no SVT. No symptoms were reported
== END 2024-08-07 07:04 | disposition home or self-care (01) ==
LOC: CARDOPNVT 07:03
PROVIDERS: PCP Family Medicine; Visit Provider Internal Medicine Cardiovascular Disease
DX: R00.2 Palpitations (principal)

== ENCOUNTER 2024-08-12 02:00 | Outpatient (CLI) | payer MEDICAID, SELFPAY ==
--- NOTE | 2024-08-12 14:55 | DI.MRI_ITS ---
Exam(s) MR BRAIN WO EXAM: MR BRAIN WO CLINICAL HISTORY: memory impairment and personality changes,,r41.3 TECHNIQUE: Multiplanar multisequence MRI of the brain was performed. COMPARISON: MR MR IAC BRAIN WO/W from 12/01/[address] HEAD CERVICAL SPINE WO from 06/25/2023 FINDINGS: VENTRICLES AND EXTRA AXIAL SPACES: Normal in size and morphology for the patient's age. MIDLINE SHIFT: None. CEREBRAL PARENCHYMA: No focus of restricted diffusion to suggest acute infarct. No space-occupying le anusha identified. Small developmental cystic space again noted in the right basal ganglia. BRAINSTEM/CEREBELLUM: Normal. VISUALIZED PARANASAL SINUSES: Clear. MASTOIDS:Minimal fluid in the inferior left mastoid air cells. This shows a significant improvement from the prior exam. Vasculature: Normal flow void. PITUITARY GLAND: Unremarkable. ORBITS: Unremarkable. IMPRESSION: Unremarkable MRI of the brain. DATA REPOSITORY:
== END 2024-08-12 02:20 ==
LOC: DI 02:01
PROVIDERS: PCP Family Medicine; Visit Provider Nurse Practitioner Adult Health
DX: R41.3 Other amnesia (principal)
CPT/HCPCS: 70551

== ENCOUNTER 2024-09-02 15:50 | Outpatient (REF) | payer MEDICAID, SELFPAY ==
[2024-09-02 21:44] LABS: TSH (W/Ref FT4) 1.27 uIU/mL (0.36-3.74)
== END 2024-09-02 15:51 | disposition home or self-care (01) ==
LOC: NCHCN 15:50
PROVIDERS: PCP Family Medicine; Visit Provider Family Medicine
DX: E03.9 Hypothyroidism, unspecified (principal)
CPT/HCPCS: 84443

== ENCOUNTER 2024-09-16 16:34 | Outpatient (CLI) | payer MEDICAID, SELFPAY ==
[2024-09-16 16:25] LABS: Vitamin B12 459 pg/mL (193-986)
== END 2024-09-16 16:35 | disposition home or self-care (01) ==
LOC: LBO 16:35
PROVIDERS: PCP Family Medicine; Visit Provider Nurse Practitioner Adult Health
DX: R41.3 Other amnesia (principal)
CPT/HCPCS: 36415; 82607

== ENCOUNTER 2024-09-17 17:15 | Emergency (ER) | payer MEDICAID, SELFPAY ==
--- NOTE | 2024-09-17 17:15 | RT.EKG_ITS ---
APPROVED REPORT Exam: Resting ECG Reason for Exam: siezure/feels off Patient Location: E HR:75 bpm ECG Measurements Heart Rate 75 AXIS MN [id number] P [id number] QRSd 98 QRS 68 QT 440 T 68 QTc 492 Conclusion Atrial fibrillation...V-rate 70- 78, irreg A-activity motion artifact, sinus
--- NOTE | 2024-09-17 17:15 | DI.CT_ITS ---
Exam(s) CT HEAD CERV SPINE FACIAL WO EXAM: CT HEAD CERV SPINE FACIAL WO CLINICAL HISTORY: fall, left sided head/face neck pain. TECHNIQUE: Imaging Protocol: Axial computed tomography images with coronal and sagittal reformatted images were created and reviewed COMPARISON: CT CT HEAD CERVICAL SPINE WO from 06/25/2023 FINDINGS: CT BRAIN: There are no skull fractures nor fluid in the visualized paranasal sinuses. There is no evidence of intracranial hemorrhage, mass effect, or shift of midline structures. There are no extra-axial fluid collections. The ventricles are not enlarged or shifted and there is no blo od within the ventricular system nor within the basal cisterns. Small hypodensity on the right side noted which is most probably developmental sub lenticular cyst. This measures [address] MAXILLOFACIAL BONES: There is no evidence of facial fractures nor fluid in the visualized paranasal sinuses. there is no evidence of orbital blowout fracture. CT CERVICAL SPINE: There is no evidence of acute fracture nor listhesis. No significant prevertebral soft tissue swelli ng. There is moderate disc space narrowing again noted at C 5-6 and C6-7 levels. Regularity of the posterior cortex of C7 is unchanged from previous. No facet malalignment evident. No significant osseous lesions evident. There is a fracture of the and dural lateral aspect of the right 1st rib. This is at similar locatio n to fracture at this site on 06/25/2023 and may be incompletely healed or refractured. The previously present fracture of the posterior aspect of the left 1st rib has healed. The previously present fracture of the medial aspect posterior left 2nd rib/costotransverse process h as also healed. IMPRESSION: No acute intracranial findings on this noninfused CT scan of the brain. No evidence of facial nor orbital blowout fractures. No evidence of acute cervical spine fracture, malalignment, nor acute compromise of the cervical spin al canal. There is a fracture of the right 1st rib at similar location to the fracture site of CT scan 06/25/19 24. This is incompletely healed. The previously present fractures of the left 1st and 2nd ribs have healed. RADIATION DOSE DELIVERED: 1,893.79mGy.cm Total DLP DATA REPOSITORY: All CT scans at this facility are submitted to the National Radiology Data Registry (NRDR) Dose Index Registry (DIR) with the [employer] (ACR). RADIATION OPTIMIZATION: All CT scans at this facility use at least one of these dose optimization te chniques: automated exposure control; mA and/or kV adjustment per patient size (includes targeted exa ms where dose is matched to clinical indication); or iterative reconstruction.
[2024-09-17 17:18] VITALS: BP 145/73; PULSE 92; RESP 28; TEMP 36.7; O2SAT 98
[2024-09-17] MEDS: Normal Saline 1,000 ML 1000 ML IV (17:29)
--- NOTE | 2024-09-17 17:29 | DI.CT_ITS ---
Exam(s) CT CHEST/ABD/PEL W EXAM: CT CHEST/ABD/PEL W CLINICAL HISTORY: fall, left sided chest and abdomen pain. TECHNIQUE: Imaging Protocol: Axial computed tomography images with coronal and sagittal reformatted images were created and reviewed CONTRAST MATERIAL: Intravenous: Omnipaque 350 Contrast volume:100 ml Oral: None COMPARISON: CR XR CLAVICLE LT from 07/04/[address] ABDOMEN PELVIS W from 03/14/2024 FINDINGS: CHEST: LUNGS: No lung infiltrates nor pleural effusions. No lung contusion nor ominous pulmonary nodules. No pneumothorax.. MEDIASTINUM: No evidence of sternal fracture nor mediastinal hematoma. No hilar nor mediastinal efrain opathy. Visualized thyroid unremarkable. CARDIAC: Heart size is normal. There is no pericardial effusion.Thoracic aorta appears unremarkable. OSSEOUS: There is a nondisplaced fracture in the anterolateral aspect of the right 1st rib which was previously present on CT scan of June 2023. There is a partially included fracture at the level the left AC joint which is difficult to evaluate as it is only partially included in the field of view here and has also been a site of prior injury/d islocation. The opposite-right clavicle and right AC joint appear unremarkable-intact. ABDOMEN: There is no ascites. No evidence of bowel wall nor mesenteric hematoma. LIVER: Liver is intact with no evidence of laceration. No lesions. No dilated intrahepatic ducts. GALLBLADDER/BILIARY: No obvious gallbladder pathology. CBD is not dilated. PANCREAS: No evidence of pancreatic mass nor dilatation of the pancreatic duct. SPLEEN: Spleen is intact. Normal size. No lacerations. No lesions. Splenic and portal veins are p atent. ADRENALS: No significant adrenal findings. KIDNEYS: No renal lacerations. No subcapsular hematomas. No focal findings in either kidney. No hy dronephrosis.. ABDOMINAL AORTA: No evidence of significant acute trauma. No aneurysm. No dissection. Common iliac arteries are calcified but not enlarged. LYMPH NODES: There is no retroperitoneal nor paraaortic adenopathy. ABDOMINAL WALL: No evidence of significant anterior abdominal wall nor inguinal hernia. No subcutane ous bruising/hematomas. GI: There is no evidence of bowel obstruction.No evidence of bowel wall hematoma. No bowel obstructi on. PELVIS: LYMPH NODES: There is no intrapelvic nor inguinal adenopathy. GI: No evidence of appendicitis.Abundant fecal material is noted in the left side of the colon and re ctosigmoid. No significant diverticular disease. URINARY BLADDER: Intact. No extravasation. No masses nor intraluminal calculi. No wall thickening. REPRODUCTIVE: Uterus is retroverted. No abnormal adnexal findings and no free fluid in the pelvis. OSSEOUS: No significant osseous lesions. No fractures. No significant disc space narrowing. IMPRESSION: 1. There is fracture an abnormality in the lateral aspect of the left clavicle but unfortunately this is only partially included in the field of view. In addition, this patient has had prior injury of the left AC joint including dislocation as seen on images of 07/04/2023. If clinically indicated fur ther imaging of the left clavicle and AC joint-left shoulder can be performed. The opposite-right cl avicle appears intact, as does the right AC joint. 2. There is a fracture of the anterolateral aspect of the right 1st rib. This is probably remnant fr om the fracture site at this location seen on prior CT scan. The fractures of the left 1st and 2nd r ibs have healed. No new fractures identified in the rib cages and vertebral bodies. 3. No lung contusion or pneumothorax nor pleural effusion. 4. No significant acute findings in the abdomen and pelvis. All CT reports on this patient called by myself to the ER physician 09/17/2024 6:53 p.m. RADIATION DOSE DELIVERED: 505.03mGy.cm Total DLP DATA REPOSITORY: All CT scans at this facility are submitted to the National Radiology Data Registry (NRDR) Dose Index Registry (DIR) with the [employer] (ACR). RADIATION OPTIMIZATION: All CT scans at this facility use at least one of these dose optimization te chniques: automated exposure control; mA and/or kV adjustment per patient size (includes targeted exa ms where dose is matched to clinical indication); or iterative reconstruction.
[2024-09-17 17:30] LABS: Abs Immature Grans 0.03 10^3/uL (0.0-0.06); Absolute Basophil Count 0.04 10^3/uL (0.0-0.2); Absolute Eosinophil Count 0.09 10^3/uL (0.0-0.7); Absolute Lymphocyte Count 2.73 10^3/uL (1.2-3.4); Absolute Monocyte Count 0.34 10^3/uL (0.1-0.8); Absolute Neutrophil Count 4.24 10^3/uL (1.2-6.7); Basophils % 0.5 %; Eosinophils % 1.2 %; HGB 15.2 g/dL (11.2-15.7); Immature Grans % 0.4 %; Lymphocytes % 36.5 %; MCH 29.2 pg (27.0-33.0); MCV 89 fL (80-95); MPV 8.5 fL (8.0-11.0); Monocytes % 4.6 %; Neutrophils % 56.8 %; Platelet Count 373 10^3/uL (130-400); RDW 12.9 % (11.7-14.6); RDW-SD 42.3 fL; WBC 7.47 10^3/uL (4.4-10.8)
--- NOTE | 2024-09-17 17:30 | W.ED.GENAD ---
Discharge Plan Disposition Patient Disposition: Home Condition: Stable Discharge Details Clinical Impression: Syncope, Hypercalcemia Primary Care Provider: Berta Winchester ED Provider: Dioni Bautista Home Meds and New Rx's Prescriptions: Continued clonazepam [Klonopin] 1 mg tablet 1 mg PO BID Rx Instructions: Brand only- no generics albuterol sulfate [ProAir HFA] 90 mcg/actuation HFA aerosol inhaler 1 puff inhalation Q6H PRN polyethylene glycol 3350 [Miralax] 17 gram/dose powder 17 g PO DAILY sertraline 100 mg tablet 100 mg PO DAILY levothyroxine 50 mcg capsule 25 mcg PO DAILY fluticasone propionate 50 mcg/actuation spray,suspension 2 spray intranasal BID PRN Rx Instructions: administer into each nostril Discharge Instructions Additional Instructions: Your imaging did not show any significant findings. You do appear to be dehydrated and I recommend trying to drink more fluids especially water during the day. Your calcium level was slightly high which can be from dehydration. I recommend following up with your primary care provider within 1 to 2 weeks and have a repeat metabolic panel done. You should avoid driving and swimming/bathing by yourself until cleared by primary care provider. If you feel more ill or have new symptoms such as difficulty breathing or chest pain return to the emergency department for reevaluation HPI General Date/Time Provider Initiated Documentation: 09/17/24 17:19. Limitations to Documentation: no limitations. Information obtained by: patient. History of Present Illness 64 year old F presents to the emergency department with the chief complaint of syncope, described as moderate, Patient started experiencing this hour(s) (1) and it has been now resolved. No relieving factors improve symptom(s), No exacerbating factors reported . Patient notes nausea/vomiting; denies shortness of breath. Related Data Home Medications ?Medication ?Instructions ?Recorded ?Confirmed clonazepam 1 mg tablet (Klonopin) 1 mg PO BID 05/13/19 09/17/24 albuterol sulfate 90 mcg/actuation 1 puff inhalation Q6H PRN 11/08/21 09/17/24 aerosol inhaler (ProAir HFA) polyethylene glycol 3350 17 17 g PO DAILY 11/08/21 09/17/24 gram/dose oral powder (Miralax) sertraline 100 mg tablet 100 mg PO DAILY 04/24/23 09/17/24 fluticasone propionate 50 2 spray intranasal BID PRN 07/24/24 09/17/24 mcg/actuation nasal spray,suspension levothyroxine 50 mcg capsule 25 mcg PO DAILY 07/24/24 09/17/24 Allergies Allergy/AdvReac Type Severity Reaction Status Date / Time gluten Allergy Intermediate Other (See Verified 09/17/24 17:31 Comment) erythromycin base AdvReac Intermediate Nausea Verified 09/17/24 17:31 iron AdvReac Intermediate Nausea Verified 09/17/24 17:31 Penicillins AdvReac Intermediate flu Verified 09/17/24 17:31 symptoms Sulfa (Sulfonamide AdvReac Intermediate chest Verified 09/17/24 17:31 Antibiotics) feels on fire General Stated Complaint: Seizure NELLA: 2 Review of Systems All systems reviewed & are unremarkable except as noted in HPI and below Constitutional Constitutional: Denies chills and Denies fever(s) Cardiovascular Cardiovascular: Denies chest pain with activity and Denies dyspnea Respiratory Respiratory: Denies cough and Denies dyspnea Gastrointestinal Gastrointestinal: Reports abdominal pain and Reports nausea Integumentary/Breasts Skin/Breast: Denies rash Exam Const General: no acute distress Orientation: alert [facility] Head: no palpable skull fracture Ears: external ears normal General nose exam: external nose normal Mouth: moist mucous membranes Eyes General: appearance normal, both eyes and all related structures Neck Neck: normal visual inspection Chest Chest: no crepitus and tenderness Resp Effort & Inspection: normal respiratory effort and able to speak in complete sentences Auscultation: clear to auscultation bilaterally Cardio Rate: regular rate GI Palpation: soft and tender Skin General skin exam: no rashes or lesions noted Neuro General: patient alert and patient oriented x3 Extrem General: normal to inspection Psych Mental Status: mental status grossly normal Course Vital Signs Vital signs: Vital Signs Temperature 36.7 C 09/17/24 17:18 Pulse 92 H 09/17/24 17:18 Respiratory Rate 28 H 09/17/24 17:18 Blood Pressure 145/73 H 09/17/24 17:18 Pulse Oximetry 98 09/17/24 17:18 Temperature 36.7 C 09/17/24 17:18 Temperature Source Oral 09/17/24 17:18 Pulse 92 H 09/17/24 17:18 Respiratory Rate 28 H 09/17/24 17:18 Blood Pressure 145/73 H 09/17/24 17:18 Blood Pressure Position Sitting 09/17/24 17:18 Pulse Oximetry 98 09/17/24 17:18 Oxygen Delivery Method Room Air 09/17/24 17:18 Oxygen Flow Rate 0 09/17/24 17:18 Medical Decision Making 64-year-old female comes in after a fall. She says that she is feeling well but then started to have abdominal cramping and nausea in the shower and woke up on the ground. Unclear if she had a seizure or just passed out. She is oriented on arrival, she does have a left sided forehead hematoma, pupils are equal and reactive to light. She is left-sided neck tenderness not midline. She has left lateral rib pain in the midaxillary line over the fourth and fifth ribs, left upper quadrant abdominal tenderness. She moves well extremities well. Given the possible syncope, will obtain CBC, CMP, troponins and given her fall and pain will obtain CT head, face, C-spine and chest abdomen pelvis. She does appear anxious given the possible seizure will give a dose of Ativan. Labs show calcium of 11.8, per up-to-date value is less than 12 requiring no specific treatment. She appears to be chronically elevated on her calcium. Imaging shows no acute findings. She has no tenderness or pain in her shoulder AC joints and has full range of motion of both shoulders so do not feel xrays indicated. Her pain is resolved and appears less anxious. I suspect she was dehydrated which caused her to have syncope. Discussed results with her and plan for discharge and outpatient follow-up with her PCP, return precautions given. Differential Diagnosis Differential Diagnosis: Syncope, seizure, rib fracture Medical Records Medical records reviewed: Yes I reviewed the patient's medical records. Lab Data Lab results reviewed: Yes I reviewed the patient's lab results. ECG Data Attestation: I personally reviewed and interpreted this ECG (s) as follows: Prior ECG tracings: available for review Interpretation: Motion artifact, sinus, rate of 75, no STEMI Quality:SDOH Health Related Social Needs: No Data to Display PFSH All Active Problems (Updated 09/17/24 @ 19:16 by Dioni Bautista MD) Hypercalcemia (Acute) Syncope (Chronic) Concussion (Acute) Constipation (Chronic) Right rib fracture (Acute) Posterolateral right 1st rib fracture Separation of left acromioclavicular joint (Acute 06/25/23) Pleural effusion, left (Acute) Left pulmonary contusion (Acute) Closed fracture of transverse process of thoracic vertebra (Acute) Left T2 Multiple fractures of ribs of left side (Acute) Left posterior fractures of 1 and 2 Pneumothorax, left (Acute) Adhesive capsulitis of right shoulder (Acute) Interstitial cystitis (Acute) Medical History (Updated 09/17/24 @ 19:16 by Dioni Bautista MD) Urinary incontinence Anosmia Asymmetrical sensorineural hearing loss Tendinopathy of right biceps tendon Vaginal atrophy Hx of syncope Rotator cuff syndrome of left shoulder Hx of adenomatous polyp of colon Right shoulder pain Tension headache Facial pain, atypical Anxiety with depression Seborrheic dermatitis Memory impairment Frequent falls Family history of heart disease Food allergy Cough Cystitis Dry eyes Adenomatous colon polyp [place] positive Hyperparathyroidism Hypercalcemia Anxiety and depression Pneumonia Ceruminosis Fatigue Hearing loss Anemia, iron deficiency Hypothyroidism Seizure disorder Syncope Chronic constipation Paresthesias Vertigo Dizziness Grief reaction Abnormal uterine bleeding Headache Rotator cuff syndrome Left elbow pain Hair loss Pain, joint, shoulder, right Anxiety Abdominal pain Surgical History Tubal Ligation, Colonoscopy - [facility] (04/18/17) Family History Mother Breast cancer COPD (chronic obstructive pulmonary disease) Father Valvular heart disease at 77 Bladder cancer Social History Smoking/Tobacco Use Status: Never Smoking risk assessment performed?: Yes Alcohol Intake: current Alcohol Intake frequency: holidays/special occasions only Drug use: Never Substance use type: does not use Housing: house Do you feel safe at home: Yes Do you feel safe in your relationship?: Yes
[2024-09-17] MEDS: LORazepam 2 MG/ML VIAL 1 MG IVP (17:39)
[2024-09-17 17:49] LABS: Lipase 65 U/L (<78); Troponin I 5 ng/L (<or=51)
[2024-09-17 17:55] LABS: ALT 55 U/L (14-59); AST 43 U/L (15-37); Albumin 4.2 g/dL (3.4-5.0); Alkaline Phosphatase 67 U/L (46-116); Anion Gap 13.5 mmol/L (3-11); BUN 14 mg/dL (7-18); Bilirubin, Total 0.4 mg/dL (0.2-1.0); CO2 26.5 mmol/L (21.0-32.0); CREATININE 1.1 mg/dL (0.55-1.02); Chloride 105 mmol/L (98-107); Estimated GFR 56.81 (mL/min/1.73m2); Glucose 122 mg/dL (74-106); Potassium 3.5 mmol/L (3.5-5.1); Sodium 145 mmol/L (136-145); TSH (W/Ref FT4) 8.57 uIU/mL (0.36-3.74); Total Protein 8.2 g/dL (6.4-8.2)
[2024-09-17 17:58] LABS: Calcium 11.8 mg/dL (8.5-10.1)
[2024-09-17] MEDS: Normal Saline - Diluent 50 ML VIAL IJ (18:03)
[2024-09-17] MEDS: Omnipaque 350 MG/ML 100 ML BTL IJ (18:05)
[2024-09-17 18:15] LABS: FREE T4 1.13 ng/dL (0.76-1.46)
[2024-09-17 18:23] VITALS: PULSE 109; O2SAT 98
[2024-09-17 18:24] VITALS: BP 158/71; PULSE 97; O2SAT 99
[2024-09-17 18:54] LABS: Troponin I 5 ng/L (<or=51)
[2024-09-17 19:25] VITALS: BP 116/71; PULSE 84; RESP 21; TEMP 36.5; O2SAT 96
== END 2024-09-17 19:25 | disposition home or self-care (01) ==
PROVIDERS: Emergency Provider Emergency Medicine; PCP Family Medicine
DX: R55 Syncope and collapse (principal); E83.52 Hypercalcemia; E86.0 Dehydration
CPT/HCPCS: 36415; 74177; 80053; 83690; 93005; 96361; 96374; 99285; 70450; 70486; 71260; 72125; 83735; 84439; 84443; 84484; 85025; 93010; 99284; J2060; J3490

== ENCOUNTER 2024-09-29 13:05 | Outpatient (REF) | payer MEDICAID, SELFPAY ==
[2024-09-29 14:41] LABS: Abs Immature Grans 0.01 10^3/uL (0.0-0.06); Absolute Basophil Count 0.04 10^3/uL (0.0-0.2); Absolute Eosinophil Count 0.06 10^3/uL (0.0-0.7); Absolute Lymphocyte Count 2.03 10^3/uL (1.2-3.4); Absolute Monocyte Count 0.37 10^3/uL (0.1-0.8); Absolute Neutrophil Count 3.16 10^3/uL (1.2-6.7); Basophils % 0.7 %; Eosinophils % 1.1 %; HCT 37.9 % (36.0-46.0); HGB 12.4 g/dL (11.2-15.7); Immature Grans % 0.2 %; Lymphocytes % 35.8 %; MCH 29.1 pg (27.0-33.0); MCHC 32.7 % (32.0-36.0); MCV 89 fL (80-95); MPV 9.1 fL (8.0-11.0); Monocytes % 6.5 %; Neutrophils % 55.7 %; Platelet Count 324 10^3/uL (130-400); RBC 4.26 10^6/uL (3.93-5.22); RDW-SD 41.8 fL; WBC 5.67 10^3/uL (4.4-10.8)
[2024-09-29 15:17] LABS: ALT 37 U/L (14-59); AST 19 U/L (15-37); Albumin 3.8 g/dL (3.4-5.0); Alkaline Phosphatase 47 U/L (46-116); Anion Gap 7.4 mmol/L (3-11); BUN 14 mg/dL (7-18); Bilirubin, Total 0.4 mg/dL (0.2-1.0); CO2 28.6 mmol/L (21.0-32.0); CREATININE 0.9 mg/dL (0.55-1.02); Calcium 10.4 mg/dL (8.5-10.1); Chloride 110 mmol/L (98-107); Estimated GFR 72.28 (mL/min/1.73m2); Glucose 87 mg/dL (74-106); Potassium 4.5 mmol/L (3.5-5.1); Sodium 146 mmol/L (136-145); TSH (W/Ref FT4) 1.81 uIU/mL (0.36-3.74); Total Protein 6.8 g/dL (6.4-8.2)
== END 2024-09-29 13:06 | disposition home or self-care (01) ==
LOC: NCHCN 13:05
PROVIDERS: PCP Family Medicine; Visit Provider Family Medicine
DX: E03.9 Hypothyroidism, unspecified (principal); G40.909 Epilepsy, unspecified, not intractable, without status epilepticus; E83.52 Hypercalcemia
CPT/HCPCS: 80053; 84443; 85025